=== PATIENT | male | born 1945 | race Caucasian/White ===

== ENCOUNTER 2024-01-05 08:29 | Outpatient (CLI) | payer MEDICARE, BC, OTHER, SELFPAY | END 2024-01-05 08:30 | disposition home or self-care (01) | LOC: AMB 01-11 00:42 | PROVIDERS: PCP Family Medicine; Visit Provider Family Medicine | DX: R06.09 Other forms of dyspnea (principal) | CPT/HCPCS: A0425; A0427 ==

== ENCOUNTER 2024-01-05 08:50 | Inpatient (IN) | payer MEDICARE, BC, OTHER, SELFPAY ==
[2024-01-05] VITALS (10 sets, daily range): BP systolic 123–188; BP diastolic 55–89; PULSE 76–108; RESP 20–36; TEMP 36.4–36.8; O2SAT 88–95; BMI 28.6
--- NOTE | 2024-01-05 09:07 | ED_ITS ---
HPI - SOB/Dyspnea General Time Seen by Provider: 09:08 Date Seen: 01/05/24 Chief Complaint: Shortness of Breath/Dyspnea Stated Complaint: Respiratory Distress Time Seen by Provider: 01/05/24 09:07 Source: patient, EMS and RN notes reviewed Mode of arrival: EMS Limitations: no limitations History of Present Illness HPI Narrative: this 78-year-old male is brought in by EMS from home where he resides independently with complaining of shortness of breath. He states he has been sick with a cough for about 2 weeks. He will produce some sputum in the morning but then it is more dry. He is on an antidepressant that makes him constipated but otherwise no associated GI symptoms with this illness. He has had no fevers or night sweats. He has tried some [id number] cough and cold medicines but his shortness of breath has progressed. He states just even trying to go to the bathroom makes him winded. He has no chest pain with this, has noted no edema. He wonders if he has pneumonia. He smokes cigarettes, less than a pack per day. [facility]. He has a history of atrial fibrillation and is on Eliquis, states he has missed no doses of this. He has no chronic oxygen at home. EMS did give him a DuoNeb in route which reportedly helped. He also has COPD, states he has a couple inhalers at home. MD elicited complaint: shortness of breath and cough Related Data Home oxygen amount: none Allergies Allergy/AdvReac Type Severity Reaction Status Date / Time No Known Drug Allergies Allergy Verified 01/05/24 08:53 Review of Systems Status of ROS: Reports: 6 or more systems reviewed and unremarkable except as noted in History and below PFSH PFS Social History Smoking Status: Current every day smoker What tobacco products do you use: cigarettes Smoking packs per day: 0.75 Smoking cigarettes per day: 15.0 Do you use any of these nicotine containing products: None Second hand tobacco smoke exposure: Yes How often do you have a drink containing alcohol: never How often do you have six or more drinks on one occasion: Never AUDIT-C Alcohol total score: 0 Non-prescribed substance use: denies use service: Yes Exam Const: Vital Signs, click to edit/add: Vital Signs - 24 hr 01/05/24 08:54 01/05/24 09:13 01/05/24 09:13 Temperature 98.3 F Pulse Rate [Apical ] 105 H Respiratory Rate 36 H Blood Pressure [Le ft Upper Arm] 137/72 Pulse Oximetry 88 89 89 Oxygen Delivery Me thod Room Air Nasal Cannula Oxygen Flow Rate 1 Patient is alert, interactive, no apparent distress. Mildly tachypneic but does seem to do fine talking. Do note some paradoxical abdominal movement with respiration. Sclera clear, conjugate gaze, symmetrical facial function. Distant breath sounds, do not hear any end-expiratory wheezing but hear some rhonchi left base. No crackles noted. CV slightly fast, do not hear significant irregularity to it but on the monitor can see that he is in atrial fibrillation. Hear no cardiac murmur. Abdomen is soft, nontender, no organomegaly or masses. He has no lower extremity edema. Did place pulse oximetry on this patient, has consistently good waveform with 87-88%. Will have nursing staff apply 1 L nasal cannula. Documenting provider has reviewed patient's vital signs: yes Course Course ED Course: This is a patient with underlying atrial fibrillation anticoagulated in history of COPD with complaint of shortness of breath, cough without fever and mild hypoxia. This likely represents COPD with underlying possible respiratory illness, consider viral and bacterial pneumonia. It is possible there could be cardiac manifestations such as CHF but he has no physical stigmata such is peripheral edema. Will get full complement of labs, start with a portable chest x-ray. He is likely going to need admission due to the hypoxia, does not have oxygen at home. Will initiate 40 mg oral prednisone now. Reevaluation(s) Time of Reevaluation #1: 10:37 Reevaluation #1: Have reviewed with patient plan for hospitalization, we are initiating antibiotics. Reviewed his chest x-ray is looking clear but white count is elevated. Thus will treat for COPD exacerbation with acute infection. He is 93% on current nasal cannula oxygen. He is in agreement with the plan. Consultations Consultation #1: Have spoken with the hospitalist Dr. Bacon. We will use Rocephin and azithromycin, have added a L of normal saline on. Did add on the urinary Legionella and strep antigen as requested as well as a lab add on for procalcitonin. She accepts care of this patient. Time: 10:33 Vital Signs Vital signs: Initial Vital Signs Temperature 98.3 F 01/05/24 08:54 Temperature Source Temporal Artery Scan 01/05/24 08:54 Pulse Rate 105 H 01/05/24 08:54 Pulse Rhythm Irregular 01/05/24 08:54 Respiratory Rate 36 H 01/05/24 08:54 Blood Pressure 137/72 01/05/24 08:54 Blood Pressure Mean 93 01/05/24 08:54 Blood Pressure Position Supine 01/05/24 08:54 Pulse Oximetry 88 01/05/24 08:54 Oxygen Delivery Method Room Air 01/05/24 08:54 Vital Signs Temperature 98.3 F 01/05/24 08:54 Pulse Rate 105 H 01/05/24 08:54 Respiratory Rate 36 H 01/05/24 08:54 Blood Pressure 137/72 01/05/24 08:54 Pulse Oximetry 88 01/05/24 08:54 Oxygen Delivery Method Room Air 01/05/24 08:54 Temperature 98.3 F 01/05/24 08:54 Pulse Rate 105 H 01/05/24 08:54 Respiratory Rate 36 H 01/05/24 08:54 Blood Pressure 137/72 01/05/24 08:54 Pulse Oximetry 89 01/05/24 09:13 Oxygen Delivery Method Nasal Cannula 01/05/24 09:13 Oxygen Flow Rate 1 01/05/24 09:13 Medications Administered Medications: Discontinued Medications Generic Name Dose Route Start Last Admin Trade Name [place] PRN Reason Stop Dose Admin Prednisone 40 mg 01/05/24 09:13 01/05/24 09:25 Prednisone 10 Mg Tablet PO 01/05/24 09:14 40 mg ONCE ONE Administration MDM - SOB/Dyspnea Lab Data Attestation: I reviewed the patient's lab results. Labs: Lab Results 01/05/24 01/05/24 01/05/24 Range/Units 09:07 09:14 10:31 WBC 17.40 H (4.50-11.00) K/uL RBC 4.26 L (4.30-5.90) m/uL Hgb 12.9 L (13.5-17.5) gm/dL Hct 39.0 (37.0-53.0) % MCV 92 (80-100) fL MCH 30 (26-34) pg MCHC 33 (32-36) gm/dL RDW Coeff of Micah 13.3 (11.5-15.5) % Plt Count 329 (140-440) K/uL Neut % (Auto) 86.0 H (42.0-72.0) % Lymph % (Auto) 7.6 L (20-44) % [place] % (Auto) 5.5 (0.0-11.0) % Eos % (Auto) 0.5 (0.0-7.0) % Baso % (Auto) 0.2 (0.0-3.0) % Neut # (Auto) 15.00 H (1.7-7.0) K/uL Lymph # (Auto) 1.30 (0.90-2.90) K/uL [place] # (Auto) 1.00 H (0.00-0.90) K/UL Eos # (Auto) 0.10 (0.00-0.50) K/uL Baso # (Auto) 0.00 (0.00-0.30) K/uL Abs Immat Gran (auto) 0.00 (0.00-0.30) K/uL Imm/Tot Granulo (auto) 0.2 % VBG pH 7.484 H (7.32-7.43) VBG pCO2 32 L (40-50) mmHG VBG pO2 53.8 H (25-47) mmHG VBG HCO3 24 (21-28) mmol/L Sodium 133 L (135-149) mmol/L Potassium 4.0 (3.6-5.1) mmol/L Chloride 101 (96-114) mmol/L Carbon Dioxide 23 (20-32) mmol/L Anion Gap 9 (7-15) mEq/L BUN 22 (7-30) mg/dL Creatinine 0.7 (0.5-1.5) mg/dL Estimated Creat Clear 66.58 Estimated GFR 93 ml/min Glucose 142 H (60-115) mg/dL Lactate 2.2 H (0.5-1.9) mmol/L Calcium 8.8 (8.4-10.6) mg/dL Total Bilirubin 0.8 (0.1-1.5) mg/dL AST 26 (12-35) U/L ALT 17 (4-50) U/L Alkaline Phosphatase 84 (40-150) U/L Troponin I < 0.01 L (0.01-0.04) ng/mL C-Reactive Protein 2.9 H (0.5-1.0) mg/dL NT-Pro-B Natriuret Pep 1550 pg/mL Total Protein 7.7 (6.0-8.3) g/dL Albumin 4.2 (3.3-5.0) g/dL SARS-CoV-2 (PCR) Negative SARS-CoV-2 (Negative) Influenza Type A (PCR) Negative PCR FLU A (Negative) Influenza Type B (PCR) Negative PCR FLU B (Negative) RSV (PCR) Negative PCR RSV (Negative) Lab Acknowledgement Test Added Imaging Data Chest x-ray: Attestation: I have reviewed the pertinent imaging results. My impression: Did visualize this chest x-ray in compare to last which I believe was 2019. Wonder if there is maybe increased perihilar changes right side, certainly no absolute consolidated pneumonia seen. Will await Radiology over-read. Radiologist's impression: Patient: JACOB WILSON Facility:?[facility] Patient ID:?[id number] Site Patient ID:?[id number]. Site :?[id number] Study:?XRay Chest PORTABLE-01/05/2024 9:42:21 AM Ordering Physician:?Malika Romeo Final Report: INDICATION: SOB, COUGH, COPD, HYPOXIA TECHNIQUE: Chest 1 view COMPARISON: 09/06/2020 FINDINGS: Emphysema. Similar prominence of the cardiomediastinal silhouette. Vascular calcifications. Scarring at the right lung apex. Right shoulder replacement hardware. IMPRESSION: Chronic emphysema without focal infiltrate. Dictated by Waldemar Tubbs MD @ 01/05/2024 9:58:17 AM (Electronic Signature) ECG Data Attestation: I personally reviewed and interpreted this ECG as follows: ( Atrial fibrillation, 99 beats per minute.) ECG interpretation date: 01/05/24 ECG interpretation time: 09:18 Discharge Plan Discharge Clinical Impression: Hypoxia, Acute infective exacerbation of chronic obstructive airway disease Patient Disposition: Admitted As Observation
--- NOTE | 2024-01-05 09:13 | XR_ITS ---
Patient: JACOB WILSON Facility:?[facility] Patient ID:?[id number] Site Patient ID:?[id number]. Site :?[id number] Study:?XRay-Chest PORTABLE-01/05/2024 9:42:21 AM Ordering Physician:?Malika Romeo Final Report: INDICATION: SOB, COUGH, COPD, HYPOXIA TECHNIQUE: Chest 1 view COMPARISON: 09/06/2020 FINDINGS: Emphysema. Similar prominence of the cardiomediastinal silhouette. Vascular calcifications. Scarring at the right lung apex. Right shoulder replacement hardware. IMPRESSION: Chronic emphysema without focal infiltrate. Dictated by Waldemar Tubbs MD @ 01/05/2024 9:58:17 AM Signed by:?Waldemar Tubbs MD @01/05/2024 9:58:17 AM (Electronic Signature)
[2024-01-05 09:22] LABS: HCO3 VBG 24 mmol/L (21-28); Lactate* 2.2 mmol/L (0.5-1.9); PCO2 VBG 32 mmHG (40-50); PO2 VBG 53.8 mmHG (25-47); pH VBG 7.484 (7.32-7.43)
[2024-01-05 09:25] LABS: Basophils Percent Auto 0.2 % (0.0-3.0); Eosinophils Percent Auto 0.5 % (0.0-7.0); Hemoglobin* 12.9 gm/dL (13.5-17.5); Immature Granulocytes Pct Auto 0.2 %; Lymphocytes Percent Auto 7.6 % (20-44); Mean Corpuscular HGB Conc 33 gm/dL (32-36); Mean Corpuscular Hemoglobin 30 pg (26-34); Mean Corpuscular Volume 92 fL (80-100); Monocytes Percent Auto 5.5 % (0.0-11.0); Platelet Count* 329 K/uL (140-440); RDW Coefficient of Variation % 13.3 % (11.5-15.5); Red Blood Count 4.26 m/uL (4.30-5.90)
[2024-01-05] MEDS: predniSONE 10 MG TABLET 40 MG PO (09:25)
[2024-01-05 09:26] LABS: Slide Review Reflex No
[2024-01-05 09:37] LABS: Albumin* 4.2 g/dL (3.3-5.0); Chloride* 101 mmol/L (96-114); Sodium* 133 mmol/L (135-149)
[2024-01-05 09:39] LABS: Creatinine* 0.7 mg/dL (0.5-1.5); Est. Creatinine Clearance* 66.58; Estimated Glomerular Filt Rate 93 ml/min
[2024-01-05 09:40] LABS: Alanine Aminotransferase* 17 U/L (4-50); Alkaline Phosphatase* 84 U/L (40-150); Anion Gap 9 mEq/L (7-15); Aspartate Amino Transferase* 26 U/L (12-35); Bilirubin Total* 0.8 mg/dL (0.1-1.5); Blood Urea Nitrogen* 22 mg/dL (7-30); Carbon Dioxide* 23 mmol/L (20-32); Glucose* 142 mg/dL (60-115); Total Protein* 7.7 g/dL (6.0-8.3)
[2024-01-05 09:41] LABS: Calcium* 8.8 mg/dL (8.4-10.6)
[2024-01-05 09:43] LABS: C Reactive Protein* 2.9 mg/dL (0.5-1.0)
[2024-01-05 09:51] LABS: PCR FLU A Negative PCR FLU A (Negative); PCR FLU B Negative PCR FLU B (Negative); PCR RSV Negative PCR RSV (Negative); SARS PCR* Negative SARS-CoV-2 (Negative)
[2024-01-05 09:58] LABS: NT Pro B Type NatriureticPept* 1550 pg/mL; Troponin I* < 0.01 ng/mL (0.01-0.04)
[2024-01-05] MEDS: AZITHROMYCIN 250 MG TABLET 500 MG PO (10:46)
[2024-01-05] MEDS: 0.9 % SODIUM CHLORIDE 1000 ml 1,000 ML 500 ML IV (10:46)
[2024-01-05 11:01] LABS: Procalcitonin* 0.05 ng/mL (<0.50)
[2024-01-05] MEDS: cefTRIAXone 2 GM in 0.9 % SODIUM CHLORIDE Mini-bag 100 ML IVPB (11:16)
--- NOTE | 2024-01-05 11:41 | P.IMHP_ITS ---
Hospitalist- H&P: HPI History of Present Illness Date Seen: 01/05/24 Chief complaint: Respiratory Distress Narrative: ADMISSION HISTORY AND PHYSICAL - HOSPITALIST Chief Complaint: Worsening shortness of breath HPI: Russell is an 78-year-old with COPD, non oxygen dependent, who presents with 2-3 days of worsening dyspnea. He states that typically he gets out of breath with any significant exertion but at this point he was getting short of breath just taking a few steps. No fever. Cough has not changed or produce different type or amount of sputum. No chest pain. No wheezing. We had him here in 2019 for community-acquired pneumonia. He lives alone here in [place]. He is designated his friend as emergency contact. He continues to smoke at a half a pack per day. I reviewed his meds and access is limited but [facility] COURSE: Oral prednisone, oral azithromycin, ceftriaxone 2 g IV. 1 L fluid bolus for elevated lactate. Single-view chest x-ray. Hospital medicine team asked to admit for further management of his hypoxic respiratory failure. CODE STATUS: Full code EMERGENCY CONTACT PLAN: [place] [phone] - first to contact - friend here in . I've updated the PFSH, medications and allergies in the Expanse tabs. INVESTIGATIONS: LABS/MICRO/ECG/IMAGING CBC reflects an elevated white blood cell count at 17.4, 86% neutrophils Hemoglobin is 12.9 Platelets 329 Blood gas is slightly alkalotic at 7.48, pCO2 32 within normal bicarb 24 Sodium is 133 with other normal electrolytes Glucose 142 Lactate 2.2 Normal LFTs Troponin undetected CRP 2.9 BNP 1500 Procalcitonin was reassuring Single-view chest x-ray in the ED shows emphysema without focal infiltrate ECHO 09/07 Final Impressions: 1. Normal LV size, mildly increased wall thickness, normal global systolic function with an estimated EF of 60 - 65%. 2. Mildly enlarged left atrium. 3. Right ventricular cavity size is mildly enlarged, global systolic RV function is normal. 4. The mitral valve is normal, mild mitral regurgitation. 5. Moderate tricuspid regurgitation. 6. Moderately increased estimated pulmonary pressures by tricuspid regurgitation velocity and right atrial pressure (48 mmHg plus RAP). 7. The inferior vena cava is dilated, respiratory size variation less than 50%. 8. 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 9. The aortic sinus is dilated with a maximal diameter of 4.2 cm. ? Comparison Compared to prior exam images and report of 12/15/2017: - TR has increased. - prior sinuses of valsalva remeasured at 4.0 cm. REVIEW OF SYSTEMS: 12-point ROS completed with patient and negative unless otherwise stated in HPI or below. PHYSICAL EXAM: CONSTITUTIONAL: Conversive, good historian. A/O. Knows setting and context. somewhat anxious. doesn't get out of breath speaking but he is tachypneic. VITAL SIGNS: see record. HEENT: Normocephalic, atraumatic. PERRL, EOMI, conjunctivae pink, no scleral icterus. Ears and nose externally normal. Pharynx normal. NECK: No JVD. No carotid bruit, no thyromegaly, no adenopathy. CHEST: rhonchous; no wheeze. mild tachypnea. HEART: S1 and S2 normal. No harsh murmurs. Edema minimal. MUSCULOSKELETAL: No gross joint deformity or swelling. NEURO: Cranial nerves intact. Grossly intact. No asymmetric findings. SKIN: No rashes, petechiae, concerning changes PSYCHIATRIC: Euthymic. ADMIT TO MEDSURG: FLOOR CARE DVT: Eliquis GI: PO intake. PPI Time spent: Today I spent 75 minutes seeing the patient, discussing the patient with ER staff, reviewing Expanse and EPIC notes/diagnostics, discussing the care plan with our care time that includes social work, PT/OT, pharmacy, RT, penitentiary and documenting my impressions and plan in the medical record. [facility] Medical History (Updated 01/05/24 @ 13:11 by Justina Bacon MD) Major depression ?F32.9 - Major depressive disorder, single episode, unspecified (ICD-10) Renal cancer ?C64.9 - Malignant neoplasm of unspecified kidney, except renal pelvis (ICD- 10) Type 2 diabetes mellitus ?E11.9 - Type 2 diabetes mellitus without complications (ICD-10) Tobacco use disorder ?F17.200 - Nicotine dependence, unspecified, uncomplicated (ICD-10) Hypertension ?I10 - Essential (primary) hypertension (ICD-10) Hyperlipidemia ?E78.5 - Hyperlipidemia, unspecified (ICD-10) GERD (gastroesophageal reflux disease) ?K21.9 - Gastro-esophageal reflux disease without esophagitis (ICD-10) COPD (chronic obstructive pulmonary disease) ?J44.9 - Chronic obstructive pulmonary disease, unspecified (ICD-10) Atrial fibrillation ?I48.91 - Unspecified atrial fibrillation (ICD-10) Anxiety ?F41.9 - Anxiety disorder, unspecified (ICD-10) Chronic 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 Half a pack per day. History of alcohol abuse. SOCIAL HISTORY: Lives alone. . 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 Immigrated from [place] at age 13 What is your current living situation?: I presently have a place to live Problems where you live: no known problems Problems where you live details: 12 steps up to apartment In the past 12 months, utilities in danger of being shut off: no In past 12 months, lack of transportation kept you from medical appts, meetings, work, or getting things needed for daily living: no In the past 12 mos, have been you worried that your food would run out before you had money to buy more?: never true In the past 12 mos, the food you bought just didn't last and you didn't have money to buy more?: never true Smoking Status: Current every day smoker What tobacco products do you use: cigarettes Smoking packs per day: 0.75 Smoking cigarettes per day: 15.0 Do you use any of these nicotine containing products: None Nicotine containing products detail: 1/2 pack a day Second hand tobacco smoke exposure: Yes How often do you have a drink containing alcohol: never How often do you have six or more drinks on one occasion: Never AUDIT-C Alcohol total score: 0 Non-prescribed substance use: denies use Caffeine: No How often does anyone, including family, friends and others, physically hurt you : never How often does anyone, including family, friends and others, insult or talk down to you: never How often does anyone, including family, friends and others, threaten you with harm: never How often does anyone, including family, friends and others, scream or curse at you: never service: Yes Meds Home Medications and Allergies Home Medications Medication Instructions Recorded Confirmed Type Lactobacillus acidophilus 10 10,000 mmu cells PO DAILY 01/05/24 01/05/24 History billion cell capsule (Probiotic) apixaban 5 mg tablet 5 mg PO BID 01/05/24 01/05/24 History losartan 50 mg-hydrochlorothiazide 1 tab PO DAILY 01/05/24 01/05/24 History 12.5 mg tablet (Hyzaar) metoprolol tartrate 25 mg tablet 25 mg PO BID 01/05/24 01/05/24 History mometasone-formoterol HFA 200 2 inh inhalation BID 01/05/24 01/05/24 History mcg-5 mcg/actuation aerosol inhaler multivitamin (Daily Multi-Vitamin 1 tab PO DAILY 01/05/24 01/05/24 History tablet) nortriptyline 25 mg capsule 75 mg PO QHS 01/05/24 01/05/24 History pantoprazole 40 mg tablet,delayed 40 mg PO BID 01/05/24 01/05/24 History release polyethylene glycol 3350 17 17 g PO DAILY 01/05/24 01/05/24 History gram/dose oral powder (ClearLax) simvastatin 40 mg tablet 40 mg PO DAILY 01/05/24 01/05/24 History tiotropium 2.5 mcg-olodaterol 2.5 2 inh inhalation DAILY 01/05/24 01/05/24 History mcg/actuation mist for inhalation (Stiolto Respimat) Allergies Allergy/AdvReac Type Severity Reaction Status Date / Time No Known Drug Allergies Allergy Verified 01/05/24 08:53 Exam Const: Vital Signs, click to edit/add: Vital Signs - 24 hr 01/05/24 08:54 01/05/24 09:13 01/05/24 09:13 Temperature 98.3 F Pulse Rate [Apical ] 105 H Respiratory Rate 36 H Blood Pressure [Le ft Upper Arm] 137/72 Pulse Oximetry 88 89 89 Oxygen Delivery Me thod Room Air Nasal Cannula Oxygen Flow Rate 1 Hospitalist - H&P: Result Labs Labs: Short CBC 01/05/24 Range/Units 09:14 WBC 17.40 H (4.50-11.00) K/uL Hgb 12.9 L (13.5-17.5) gm/dL Hct 39.0 (37.0-53.0) % Plt Count 329 (140-440) K/uL BMP 01/05/24 09:14 Sodium 133 L Potassium 4.0 Chloride 101 Carbon Dioxide 23 BUN 22 Creatinine 0.7 Glucose 142 H Calcium 8.8 Cardiac Enzymes 01/05/24 Range/Units 09:14 Troponin I < 0.01 L (0.01-0.04) ng/mL Liver Function 01/05/24 Range/Units 09:14 Total Bilirubin 0.8 (0.1-1.5) mg/dL AST 26 (12-35) U/L ALT 17 (4-50) U/L Alkaline Phosphatase 84 (40-150) U/L Albumin 4.2 (3.3-5.0) g/dL Assessment and Plan Assessment and plan (1) Acute hypoxemic respiratory failure: Problem comment: Minimal oxygen needed in the ED 1-2 L to keep his sats greater than 90%. His gas showed some hyperventilation but otherwise stable This is likely an acute exacerbation of COPD verses acute infection, however we will sort this out over the next 24 hours. Status: Acute (2) Acute infective exacerbation of chronic obstructive airway disease: Problem comment: Despite a normal x-ray we will cover him for community-acquired pneumonia antibiotics: Rocephin and azithromycin We will continue his home medications with nebulized DuoNebs in addition to oral prednisone burst and taper. Status: Acute (3) Atrial fibrillation: Problem comment: Currently rate controlled. He is chronically anticoagulated with Eliquis. Secondary to a history of pulmonary hypertension I will update his echo. Status: Acute (4) Type 2 diabetes mellitus: Problem comment: I will add an A1c to his labs. Sliding scale insulin with q.i.d. Accu-Cheks Status: Acute (5) Tobacco use disorder: Problem comment: Continues at a half pack per day Status: Acute (6) Hypertension: Problem comment: Continue home meds with the following exception: Given his hyponatremia I am holding his hydrochlorothiazide increased his losartan to 100 mg from 50 mg daily. Status: Acute (7) Chronic anticoagulation: Problem comment: For paroxysmal AFib. Eliquis per Status: Acute
[2024-01-05 13:41] LABS: Hemoglobin A1C* 6.2 % (0-5.6)
[2024-01-05] MEDS: METOPROLOL TARTRATE 25 MG TABLET PO ×2 (14:49→20:30)
[2024-01-05] MEDS: APIXABAN 5 MG TABLET PO ×2 (14:49→20:29)
[2024-01-05] MEDS: LOSARTAN POTASSIUM 50 MG TABLET 100 MG PO (14:49)
[2024-01-05] MEDS: BUDESONIDE 0.5 MG/2ML NEB NEB ×2 (14:50→20:29)
--- NOTE | 2024-01-05 16:43 | RESP.RT ---
pt seen and evaluated. BBS decreased. no wheezing, Rhonchi or Rales. Started AErobika with pt. 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 SPO2 95% on RA. Would give duo nebs Q6.
--- NOTE | 2024-01-05 19:13 | PC.NURSE ---
End of Shift: The patient is pleasant... VSS on RA... O2 is needed when the patient is up and ambulating to BR... he desaturates to the mid 70's I educated the patient about this. Up ad ruma as tolerated reported no dizziness or lightheadedness with ambulation. No reports of pain. Decreased appetite.. although he did eat dinner. Call light within reach. Orders to maintain >88%. Mana HOWARD BSN
[2024-01-05] MEDS: NORTRIPTYLINE HCL 25 MG CAPSULE 75 MG PO (20:30)
[2024-01-05] MEDS: OMEPRAZOLE 20 MG CAPSULE DR 40 MG PO (20:31)
[2024-01-05] MEDS: SIMVASTATIN 40 MG TABLET PO (20:32)
[2024-01-05] MEDS: SODIUM CHLORIDE 0.9 % (FLUSH) 10 ML SYRINGE 5 ML IVF (20:32)
[2024-01-05] MEDS: INSULIN ASPART 100 UNIT/ML SUBCUT (20:43)
[2024-01-06] VITALS (7 sets, daily range): BP systolic 124–154; BP diastolic 57–95; PULSE 73–97; RESP 20–22; TEMP 36.4–36.9; O2SAT 94–100
--- NOTE | 2024-01-06 06:44 | PC.NURSE ---
End of shift note [id number]: Pt noted to be alert & oriented x 4 and able to make needs known. He does need reminders to breathe in through nose and out through mouth as pt tends to breath in and out of his mouth. O2 sat noted to drop to 76% on RA with activity. 2 liters oxygen used when pt up in room. Pt has been afebrile throughout the shift. Pt transfers/ambulates with SBA in room as he does not remember to put his oxygen on before getting up. Pt has been denying pain when asked throughout the shift. IV to R AC patent and SL. BG of 151 at HS last evening. Pt was accepting of SS dose of Novolog when educated regarding diabetes and purpose of medication. Pt requested to sleep with pants on. He has been continent of bladder throughout the shift.
[2024-01-06 06:46] LABS: HCO3 VBG 28 mmol/L (21-28); PCO2 VBG 49 mmHG (40-50); PO2 VBG < 30.1 mmHG (25-47); pH VBG 7.369 (7.32-7.43)
[2024-01-06 06:57] LABS: Basophils Percent Auto 0.2 % (0.0-3.0); Eosinophils Percent Auto 1.1 % (0.0-7.0); Hematocrit 37.3 % (37.0-53.0); Hemoglobin* 12.2 gm/dL (13.5-17.5); Immature Granulocytes Pct Auto 0.3 %; Mean Corpuscular HGB Conc 33 gm/dL (32-36); Mean Corpuscular Hemoglobin 31 pg (26-34); Mean Corpuscular Volume 94 fL (80-100); Monocytes Percent Auto 7.3 % (0.0-11.0); Neutrophils Percent Auto 78.1 % (42.0-72.0); Platelet Count* 317 K/uL (140-440); RDW Coefficient of Variation % 13.6 % (11.5-15.5); Red Blood Count 3.95 m/uL (4.30-5.90); White Blood Count* 15.81 K/uL (4.50-11.00)
[2024-01-06 07:00] LABS: Slide Review Reflex No
[2024-01-06 07:11] LABS: Chloride* 102 mmol/L (96-114); Potassium* 4.1 mmol/L (3.6-5.1); Sodium* 136 mmol/L (135-149)
[2024-01-06 07:14] LABS: Anion Gap 9 mEq/L (7-15); Blood Urea Nitrogen* 33 mg/dL (7-30); Carbon Dioxide* 25 mmol/L (20-32); Creatinine* 0.9 mg/dL (0.5-1.5); Est. Creatinine Clearance* 66.58; Estimated Glomerular Filt Rate 86 ml/min
[2024-01-06 07:15] LABS: Calcium* 8.6 mg/dL (8.4-10.6); Glucose* 116 mg/dL (60-115); Magnesium* 2.3 mg/dL (1.5-2.6)
[2024-01-06 07:35] LABS: C Reactive Protein* 7.6 mg/dL (0.5-1.0)
[2024-01-06] MEDS: APIXABAN 5 MG TABLET PO ×2 (07:56→20:49)
[2024-01-06] MEDS: predniSONE 20 MG TABLET 40 MG PO (07:57)
[2024-01-06] MEDS: SENNOSIDES/DOCUSATE TABLET 1 TAB PO (07:57)
[2024-01-06] MEDS: OMEPRAZOLE 20 MG CAPSULE DR 40 MG PO ×2 (07:57→20:49)
[2024-01-06] MEDS: LACTOBACILLUS ACIDOPHILUS 1 TABLET 1 TAB PO (07:58)
[2024-01-06] MEDS: METOPROLOL TARTRATE 25 MG TABLET PO ×2 (07:58→20:53)
[2024-01-06] MEDS: LOSARTAN POTASSIUM 50 MG TABLET 100 MG PO (07:58)
[2024-01-06] MEDS: MULTIVITAMIN/MINERALS 1 TABLET 1 TAB PO (07:58)
[2024-01-06] MEDS: IPRAT-ALBUT 0.5-2.5 MG/3 ML NEB 1 NEB IH ×2 (07:59→13:49)
--- NOTE | 2024-01-06 08:00 | XR_ITS ---
Patient: JACOB WILSON Facility:?[facility] Patient ID:?[id number] Site Patient ID:?[id number]. Site :?[id number] Study:?XRay-Chest 2V-01/06/2024 7:26:07 AM Ordering Physician:?DR. TAYLOR Final Report: Indication: COPD exacerbation Comparison: Single-view chest January 05, 2024 Technique: PA and lateral views of the chest Findings: There is hyperinflation and chronic interstitial change with diffusely increased interstitial markings likely representing mild pulmonary edema. There is no pneumothorax or pleural effusion. The cardiac silhouette is mildly prominent. The bony thorax is grossly intact. Impression: Diffusely increased interstitial markings likely representing mild pulmonary edema. Dictated by Jadiel Menendez MD @ 01/06/2024 8:09:22 AM Signed by:?Jadiel Menendez MD @01/06/2024 8:09:22 AM (Electronic Signature)
[2024-01-06] MEDS: BUDESONIDE 0.5 MG/2ML NEB NEB ×2 (08:59→20:50)
[2024-01-06] MEDS: AZITHROMYCIN 250 MG TABLET PO (10:33)
[2024-01-06] MEDS: cefTRIAXone 1 GM in 0.9 % SODIUM CHLORIDE Mini-bag 100 ML IVPB (10:33)
[2024-01-06] MEDS: SODIUM CHLORIDE 0.9 % (FLUSH) 10 ML SYRINGE 5 ML IVF ×3 (10:34→20:54)
--- NOTE | 2024-01-06 11:10 | P.IMPN_ITS ---
Progress Note: A&P Assessment and plan (1) Acute hypoxemic respiratory failure: Problem details: Minimal oxygen needed in the ED 1-2 L to keep his sats greater than 90%. His gas showed some hyperventilation but otherwise stable - suspect this is acute COPD exacerbation Status: Acute (2) Acute infective exacerbation of chronic obstructive airway disease: Problem details: Despite a normal x-ray we will cover him for community-acquired pneumonia antibiotics: Rocephin and azithromycin We will continue his home medications with nebulized DuoNebs in addition to oral prednisone burst and taper. - was still hypoxic with ambulation this morning. Continue current regimen and monitor overnight. RT to continue to see patient. Status: Acute (3) Ascending aorta dilatation: Problem details: 09/07/2020 ECHO ascending aorta is dilated with a maximal diameter of 4.2 cm. 01/05/2024 ECHO ascending aorta is dilated with a maximal diameter of 4.1 cm. 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 01/05/2024 ECHO aortic sinus is dilated with a maximal diameter of 4.4 cm. Status: Chronic (5) Atrial fibrillation: Problem details: Diagnosed 10/2017 at [facility] Currently rate controlled. He is chronically anticoagulated with Eliquis. Secondary to a history of pulmonary hypertension I will update his echo. Status: Chronic (6) Type 2 diabetes mellitus: Problem details: - A1c 6.2%. Sliding scale insulin with q.i.d. Accu-Cheks. - Gluc 80's-160's Status: Acute (7) Anxiety: Problem details: Continue home med Status: Chronic (8) Hypertension: Problem details: Continue home meds with the following exception: - 01/04 Given his hyponatremia, held hydrochlorothiazide increased his losartan to 100 mg from 50 mg daily. Status: Chronic (9) Tobacco use disorder: Problem details: Continues at a half pack per day Status: Chronic (10) Chronic anticoagulation: Problem details: For paroxysmal AFib. Eliquis Status: Chronic Subjective Time Seen by Provider: 09:21 Date Seen: 01/06/24 Interval history: Russell says he feels about the same as yesterday. Respiratory therapy and is nurse noted that he was very tight this morning for which he was given a neb. He feels a bit better now. Exam Narrative: Exam Narrative: General: No acute distress. Awake, alert, oriented x3. He was standing at bedside working with PT, mild respiratory distress. No pallor. No jaundice. Oropharynx: Clear. Mucous membranes moist. Cardiovascular: Regular rate and rhythm. No murmurs, gallops, or rubs. Respiratory: Patient tight, scattered expiratory wheezes, no crackles. Abdomen: Bowel sounds present. Soft, obese, nondistended, nontender. Extremities: Trace bilat pedal edema. Const: Vital Signs, click to edit/add: Vital Signs - 24 hr 01/05/24 11:37 01/05/24 11:57 01/05/24 11:57 Temperature 97.8 F Pulse Rate Pulse Rate [Pulse Oximeter] 108 H Respiratory Rate 22 22 22 Blood Pressure [Le ft Arm] 176/70 H Blood Pressure [Ri ght Arm] Pulse Oximetry 95 95 95 Oxygen Delivery Me thod Room Air Room Air Room Air Oxygen Flow Rate 01/05/24 15:00 01/05/24 15:00 01/05/24 15:00 Temperature 97.8 F Pulse Rate 89 Pulse Rate [Pulse Oximeter] 83 83 Respiratory Rate 24 24 Blood Pressure [Le ft Arm] 188/89 H Blood Pressure [Ri ght Arm] Pulse Oximetry 93 Oxygen Delivery Nv thod Room Air Oxygen Flow Rate 01/05/24 16:44 01/05/24 16:45 01/05/24 16:45 Temperature 97.9 F Pulse Rate Pulse Rate [Pulse Oximeter] 85 Respiratory Rate 24 20 Blood Pressure [Le ft Arm] 137/82 Blood Pressure [Ri ght Arm] Pulse Oximetry 95 95 93 Oxygen Delivery Nv thod Room Air Room Air Oxygen Flow Rate 01/05/24 20:06 01/05/24 23:00 01/05/24 23:00 Temperature 97.6 F 97.8 F Pulse Rate Pulse Rate [Pulse Oximeter] 80 82 82 Respiratory Rate 20 20 20 Blood Pressure [Le ft Arm] 123/55 L 153/75 H Blood Pressure [Ri ght Arm] Pulse Oximetry 94 93 Oxygen Delivery Nv thod Room Air Room Air Oxygen Flow Rate 01/05/24 23:29 01/06/24 03:00 01/06/24 07:00 Temperature 97.8 F 98.4 F Pulse Rate 76 Pulse Rate [Pulse Oximeter] 85 77 Respiratory Rate 20 22 Blood Pressure [Le ft Arm] 136/71 Blood Pressure [Ri ght Arm] 154/77 H Pulse Oximetry 96 100 Oxygen Delivery Me thod Room Air Nasal Cannula Oxygen Flow Rate 2 01/06/24 07:00 01/06/24 07:00 Temperature Pulse Rate 77 Pulse Rate [Pulse Oximeter] 77 Respiratory Rate 22 Blood Pressure [Le ft Arm] Blood Pressure [Ri ght Arm] Pulse Oximetry Oxygen Delivery Me thod Oxygen Flow Rate Labs Labs: Laboratory Results - last 24 hr 01/05/24 01/05/24 01/05/24 09:14 10:31 13:08 WBC RBC Hgb Hct MCV MCH MCHC RDW Coeff of Micah Plt Count Neut % (Auto) Lymph % (Auto) [place] % (Auto) Eos % (Auto) Baso % (Auto) Neut # (Auto) Lymph # (Auto) [place] # (Auto) Eos # (Auto) Baso # (Auto) Abs Immat Gran (auto) Imm/Tot Granulo (auto) VBG pH VBG pCO2 VBG pO2 VBG HCO3 Sodium Potassium Chloride Carbon Dioxide Anion Gap BUN Creatinine Estimated Creat Clear Estimated GFR Glucose Hemoglobin A1c 6.2 H Calcium Magnesium C-Reactive Protein Procalcitonin 0.05 Urine L. pneumophilia Ag Cancelled Urine Strep pneumoniae Ag Cancelled Lab Acknowledgement Test Added 01/06/24 06:10 WBC 15.81 H RBC 3.95 L Hgb 12.2 L Hct 37.3 MCV 94 MCH 31 MCHC 33 RDW Coeff of Micah 13.6 Plt Count 317 Neut % (Auto) 78.1 H Lymph % (Auto) 13.0 L [place] % (Auto) 7.3 Eos % (Auto) 1.1 Baso % (Auto) 0.2 Neut # (Auto) 12.30 H Lymph # (Auto) 2.10 [place] # (Auto) 1.20 H Eos # (Auto) 0.20 Baso # (Auto) 0.00 Abs Immat Gran (auto) 0.00 Imm/Tot Granulo (auto) 0.3 VBG pH 7.369 VBG pCO2 49 VBG pO2 < 30.1 VBG HCO3 28 Sodium 136 Potassium 4.1 Chloride 102 Carbon Dioxide 25 Anion Gap 9 BUN 33 H Creatinine 0.9 Estimated Creat Clear 66.58 Estimated GFR 86 Glucose 116 H Hemoglobin A1c Calcium 8.6 Magnesium 2.3 C-Reactive Protein 7.6 H Procalcitonin Urine L. pneumophilia Ag Urine Strep pneumoniae Ag Lab Acknowledgement Study: XRay-Chest 2V-01/06/2024 7:26:07 AM Ordering Physician: DR. TAYLOR Final Report: Indication: COPD exacerbation Comparison: Single-view chest January 05, 2024 Technique: PA and lateral views of the chest Findings: There is hyperinflation and chronic interstitial change with diffusely increased interstitial markings likely representing mild pulmonary edema. There is no pneumothorax or pleural effusion. The cardiac silhouette is mildly prominent. The bony thorax is grossly intact. Impression: Diffusely increased interstitial markings likely representing mild pulmonary edema. Dictated by Jadiel Menendez MD @ 01/06/2024 8:09:22 AM Signed by: Jadiel Menendez MD @01/06/2024 8:09:22 AM (Electronic Signature) Dictated By: Jadiel Menendez M.D. Signed By: 01/06/24 0843 DD/ 0809 TD/TT: 01/06/24 0842
[2024-01-06] MEDS: FUROSEMIDE 10 MG/ML inj 40 MG IVP (12:16)
--- NOTE | 2024-01-06 15:02 | PC.NURSE ---
End of Shift Note: Patient has had a good day. When we first started out on this shift his lungs sounded very tight. Good air movement in but not very good expiration. Did receive a duo neb x2 and he said he is feeling his breathing has been a little better since doing those. He was on oxygen when i arrived and we have been able to get him to room air. Although with activity he does desats into the low to mid 70's . He is a current smoker hoping to not have to go home on oxygen. Has not produced any sputum to also send a sample. Will continue to monitor until next shift arrives.
[2024-01-06] MEDS: SIMVASTATIN 40 MG TABLET PO (20:49)
[2024-01-06] MEDS: NORTRIPTYLINE HCL 25 MG CAPSULE 75 MG PO (20:54)
--- NOTE | 2024-01-06 23:41 | PC.NURSE ---
Patient alert and orientedx4. Able to communicate needs. Vital signs stable. Sinus arrhythmia with occasional PVCS on tele. Denies SOB.
[2024-01-07 04:00] VITALS: BP 134/77; PULSE 84; RESP 20; TEMP 36.9; O2SAT 96
[2024-01-07 06:58] LABS: Chloride* 105 mmol/L (96-114); Potassium* 4.1 mmol/L (3.6-5.1); Sodium* 138 mmol/L (135-149)
[2024-01-07 07:00] VITALS: BP 139/72; PULSE 80; RESP 20; TEMP 36.6; O2SAT 98
[2024-01-07 07:00] LABS: Creatinine* 0.9 mg/dL (0.5-1.5); Est. Creatinine Clearance* 66.58; Estimated Glomerular Filt Rate 86 ml/min
[2024-01-07 07:01] LABS: Anion Gap 8 mEq/L (7-15); Blood Urea Nitrogen* 39 mg/dL (7-30); Carbon Dioxide* 25 mmol/L (20-32)
[2024-01-07 07:02] LABS: Calcium* 8.8 mg/dL (8.4-10.6); Glucose* 110 mg/dL (60-115)
[2024-01-07 07:04] LABS: C Reactive Protein* 4.4 mg/dL (0.5-1.0)
--- NOTE | 2024-01-07 08:00 | PC.NURSE ---
Care provided [id number]: Pt alert and oriented to questions this shift, pt very pleasant and cooperative. Up to bathroom x2 this shift, voiding. While at rest in bed sat 98% on RA. Pt denies shortness of breath. Pt's vitals WDL. Pt has call light within reach.
[2024-01-07] MEDS: IPRAT-ALBUT 0.5-2.5 MG/3 ML NEB 1 NEB IH (08:21)
[2024-01-07] MEDS: predniSONE 20 MG TABLET 40 MG PO (08:21)
[2024-01-07] MEDS: METOPROLOL TARTRATE 25 MG TABLET PO (08:22)
[2024-01-07] MEDS: LOSARTAN POTASSIUM 50 MG TABLET 100 MG PO (08:22)
[2024-01-07] MEDS: LACTOBACILLUS ACIDOPHILUS 1 TABLET 1 TAB PO (08:22)
[2024-01-07] MEDS: APIXABAN 5 MG TABLET PO (08:22)
[2024-01-07] MEDS: MULTIVITAMIN/MINERALS 1 TABLET 1 TAB PO (08:23)
[2024-01-07] MEDS: OMEPRAZOLE 20 MG CAPSULE DR 40 MG PO (08:23)
[2024-01-07] MEDS: SODIUM CHLORIDE 0.9 % (FLUSH) 10 ML SYRINGE 5 ML IVF (08:24)
[2024-01-07] MEDS: BUDESONIDE 0.5 MG/2ML NEB NEB (08:25)
[2024-01-07] MEDS: AZITHROMYCIN 250 MG TABLET PO (11:05)
--- NOTE | 2024-01-07 15:13 | PM.DS1 ---
DS: Providers Provider Date Seen: 01/07/24 Date of admission: 01/05/24 11:37 Primary care physician: Darius Temple MD Admitting Clinician: Justina Bacon MD Consults: 01/05/24 11:37 Consult to Occupational Therapy [CONS] Routine Comment: Reason(s) for OT Consult:: Evaluate and Treat Any Restrictions?:: No Restrictions Consult to Physical Therapy [CONS] Routine Comment: Reason(s) for PT Consult:: Evaluate and Treat Any Restrictions?:: No Restrictions Consult to Financial Health Counselor [CONS] Routine Comment: Reason for Consult:: Social Service Consult 01/05/24 12:12 Consult to Respiratory Therapy [CONS] Routine Comment: Reason(s) for RT Consult:: Consult Attending Physician on discharge: CRYSTAL Jay, DANIELC [facility] Date of Discharge: 01/07/24 DS: Diagnosis Discharge Diagnosis (1) Acute hypoxemic respiratory failure: Status: Acute Problem details: Minimal oxygen needed in the ED 1-2 L. Blood gas showed some hyperventilation but otherwise stable. Suspected COPD exacerbation. Resolved, on room air at time of discharge. (2) Acute infective exacerbation of chronic obstructive airway disease: Status: Acute Problem details: Patient was covered for community-acquired pneumonia antibiotics with Rocephin and azithromycin, transitioned to oral cefdinir and azithromycin to complete a 5 day course. Respiratory therapy was consulted. Continued on his home inhalants, received DuoNebs, and a burst dose of prednisone to complete a 5 day course. (3) Ascending aorta dilatation: Status: Chronic Problem details: 09/07/2020 ECHO ascending aorta is dilated with a maximal diameter of 4.2 cm. 01/05/2024 ECHO ascending aorta is dilated with a maximal diameter of 4.1 cm. 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 01/05/2024 ECHO aortic sinus is dilated with a maximal diameter of 4.4 cm. (5) Atrial fibrillation: Status: Chronic Problem details: Diagnosed 10/2017 at [facility]. Secondary to history pulmonary hypertension. Remained rate controlled. Chronically anticoagulated with Eliquis. (6) Type 2 diabetes mellitus: Status: Acute Problem details: - A1c 6.2%. (7) Anxiety: Status: Chronic Problem details: Continued on home med (8) Hypertension: Status: Chronic Problem details: Continue home meds with the following exception: - 01/04 Given his hyponatremia, held hydrochlorothiazide increased his losartan to 100 mg from 50 mg daily. Home medications resumed on discharge. DS: Summary Hospital Course Hospital Course: [age] year old male past medical history significant for COPD, active smoker, atrial fibrillation on chronic anticoagulation, type 2 diabetes mellitus, hypertension was admitted to the medical floor for acute hypoxemic respiratory failure in setting of COPD exacerbation. Course of care and details as noted above. Patient was initiated on IV antibiotics, transition to oral medications as well as burst dose prednisone. Weaned to room air. Smoking cessation encouraged. Remainder of chronic medical comorbidities were monitored and managed with home medications. Status at Discharge Overall status at discharge: patient is back to baseline Time Spent with Patient Time attestation: Total time spent providing and/or coordinating discharge services: Time spent: Greater than 30 minutes Exam Narrative: Exam Narrative: PHYSICAL EXAM General: Pleasant, conversant, NAD Cardiovascular: RRR Pulmonary: No dyspnea Neurological: Alert, answering questions appropriately Skin: Warm, dry. Const: Vital Signs, click to edit/add: Vital Signs - 24 hr 01/06/24 19:49 01/06/24 23:00 01/07/24 04:00 Temperature 97.8 F 98.4 F Pulse Rate 77 Pulse Rate [Pulse Oximeter] 81 84 Respiratory Rate 20 20 Blood Pressure [Le ft Arm] 134/77 Blood Pressure [Ri ght Arm] 125/57 L Pulse Oximetry 94 96 Oxygen Delivery Me thod Room Air Room Air Oxygen Flow Rate 0 01/07/24 07:00 01/07/24 07:00 Temperature 97.9 F Pulse Rate Pulse Rate [Pulse Oximeter] 80 80 Respiratory Rate 20 20 Blood Pressure [Le ft Arm] 139/72 Blood Pressure [Ri ght Arm] Pulse Oximetry 98 Oxygen Delivery Me thod Room Air Oxygen Flow Rate DS: Data Data Completed and Pending Labs on day of discharge: Labs from last 24 hours 01/07/24 06:18 Sodium 138 Potassium 4.1 Chloride 105 Carbon Dioxide 25 Anion Gap 8 BUN 39 H Creatinine 0.9 Estimated Creat Clear 66.58 Estimated GFR 86 Glucose 110 Calcium 8.8 C-Reactive Protein 4.4 H Discharge Plan Discharge Disposition: Home, Self-Care Date of Admission: 01/05/24 11:37 Attending Provider on Discharge: Penelope Avalos Primary Care Provider: Darius Temple Condition: Improved Anticipated Discharge Date/Time: 01/07/24 11:28 Discharge Medications: New azithromycin 250 mg Tablet 250 mg PO Q24H Qty: 2 0RF Rx Instructions: to be taken 01/07-01/08 prednisone 20 mg Tablet 40 mg PO DAILYWM Qty: 3 0RF Rx Instructions: to be taken 01/07-01/09 cefdinir 300 mg capsule 300 mg PO BID Qty: 6 0RF Continued apixaban 5 mg tablet 5 mg PO BID losartan-hydrochlorothiazide [Hyzaar] 50-12.5 mg tablet 1 tab PO DAILY Probiotic 10 billion cell capsule 10,000 mmu cells PO DAILY metoprolol tartrate 25 mg tablet 25 mg PO BID mometasone-formoterol 200-5 mcg/actuation HFA aerosol inhaler 2 inh inhalation BID multivitamin [Daily Multi-Vitamin] Tablet 1 tab PO DAILY nortriptyline 25 mg capsule 75 mg PO QHS Stiolto Respimat 2.5-2.5 mcg/actuation mist 2 inh inhalation DAILY pantoprazole 40 mg tablet,delayed release (DR/EC) 40 mg PO BID polyethylene glycol 3350 [ClearLax] 17 gram/dose powder 17 g PO DAILY simvastatin 40 mg tablet 40 mg PO DAILY Discharge Orders: Discharge Order (Routine); Ordered 01/07/24 Ordered By: Penelope Avalos Patient Education: Prednisone (By mouth), Azithromycin (By mouth), Cefdinir (By mouth), COPD (Chronic Obstructive Pulmonary Disease) (GEN), Community Acquired Pneumonia (GEN) Additional Instructions: Finish your antibiotics and prednisone. Outpatient follow-up with PCP 5-7 days. Activity Level: No Restrictions Discharge Diet: Diabetic Follow Up Appointments: Darius Temple MD [Primary Care Provider] - 01/13/24 11:45 am ([facility] for follow-up. CAP, COPD) Forms: Helium Info Instructions
== END 2024-01-07 12:38 | disposition home or self-care (01) | DRG 190 ==
LOC: ED 10:34 → MEDSURG 11:10
PROVIDERS: Family Medicine; Admitting Provider Family Medicine; Emergency Provider Family Medicine; PCP Family Medicine; Visit Provider Family Medicine
DX: J44.0 Chronic obstructive pulmonary disease with (acute) lower respiratory infection (principal); J18.9 Pneumonia, unspecified organism; J96.01 Acute respiratory failure with hypoxia; I48.20 Chronic atrial fibrillation, unspecified; E87.1 Hypo-osmolality and hyponatremia; J44.1 Chronic obstructive pulmonary disease with (acute) exacerbation; F17.210 Nicotine dependence, cigarettes, uncomplicated; I48.91 Unspecified atrial fibrillation; Z79.01 Long term (current) use of anticoagulants; E11.9 Type 2 diabetes mellitus without complications; I10 Essential (primary) hypertension; K21.9 Gastro-esophageal reflux disease without esophagitis; F41.9 Anxiety disorder, unspecified; F32.9 Major depressive disorder, single episode, unspecified; I77.819 Aortic ectasia, unspecified site; I27.20 Pulmonary hypertension, unspecified; I48.0 Paroxysmal atrial fibrillation
CPT/HCPCS: 36415; 71045; 71046; 80048; 80053; 82803; 82962; 83036; 83605; 83735; 83880; 84145; 84484; 85025; 86140; 87070; 87449; 87631; 87899; 93005; 93306; 94640; 94664; 94761; 97116; 97162; 97165; 97535; 99284; 99285; A9153; A9270; J0696; J1940; J7030; J7512; J7626

== ENCOUNTER 2024-05-20 09:27 | Emergency (ER) | payer MEDICARE, BC, OTHER, SELFPAY ==
[2024-05-20] VITALS (11 sets, daily range): BP systolic 139–169; BP diastolic 70–83; PULSE 62–85; RESP 20–26; TEMP 36.2; O2SAT 95–99; BMI 29.7
--- NOTE | 2024-05-20 10:38 | ED_ITS ---
HPI - SOB/Dyspnea General Time Seen by Provider: 10:40 Date Seen: 05/20/24 Chief Complaint: Shortness of Breath/Dyspnea Stated Complaint: Pneumonia Time Seen by Provider: 05/20/24 10:38 Source: patient Mode of arrival: ambulatory Limitations: no limitations History of Present Illness HPI Narrative: Russell is a very pleasant 79-year-old [employer] with history of COPD, continued tobacco use, type 2 diabetes, hypertension and chronic anticoagulation secondary to atrial fibrillation who comes to the emergency room for evaluation regarding shortness of breath with activity. Patient notes that he was actually at [facility] a [facility] and was checked out at that time with no problems. In the days that have followed in especially over the last 3 days he has had increasing shortness of breath with exertion. Normally he could be outside walking but now he states that he will get short of breath just by getting up and walking to the door. He has not had a cough, sore throat runny nose or fever. No reported cold symptoms at the onset of this illness. He denies chest pain, fluid retention, history of congestive heart failure. He does have home inhalers which she has been using. He states that he had pneumonia in November of this year and this feels similar. Russell thought that perhaps his shortness of breath was from an enlarged abdomen. He notes that he has had a protuberant and firm abdomen for quite some time. He has had ultrasound in the past. He was recently told by a physician to use Metamucil. He notes that the size of his abdomen decreases slightly with a bowel movement but does not report any constipation. He also notes that his abdomen seems to go down when he eats. He denies any blood in his stool unusual weight loss. He denies any abdominal pain. Related Data Home Medications ?Medication ?Instructions ?Recorded ?Confirmed apixaban 5 mg tablet 5 mg PO BID 01/05/24 05/20/24 losartan 50 mg-hydrochlorothiazide 1 tab PO DAILY 01/05/24 05/20/24 12.5 mg tablet (Hyzaar) metoprolol tartrate 25 mg tablet 25 mg PO BID 01/05/24 05/20/24 mometasone-formoterol HFA 200 2 inh inhalation BID 01/05/24 05/20/24 mcg-5 mcg/actuation aerosol inhaler multivitamin (Daily Multi-Vitamin 1 tab PO DAILY 01/05/24 05/20/24 tablet) pantoprazole 40 mg tablet,delayed 40 mg PO BID PRN 01/05/24 05/20/24 release polyethylene glycol 3350 17 17 g PO DAILY PRN 01/05/24 05/20/24 gram/dose oral powder (ClearLax) simvastatin 40 mg tablet 40 mg PO HS 01/05/24 05/20/24 tiotropium 2.5 mcg-olodaterol 2.5 2 inh inhalation DAILY 01/05/24 05/20/24 mcg/actuation mist for inhalation (Stiolto Respimat) albuterol sulfate 90 mcg/actuation 2 inh inhalation QID PRN 05/20/24 05/20/24 aerosol inhaler (Ventolin HFA) modafinil 100 mg tablet 200 mg PO DAILY 05/20/24 05/20/24 nortriptyline 50 mg capsule 100 mg PO HS 05/20/24 05/20/24 psyllium (Hydrocil oral powder) 1 tsp PO DAILY 05/20/24 05/20/24 sennosides 8.6 mg-docusate sodium 1 tab-cap PO BID 05/20/24 05/20/24 50 mg tablet (Senna Plus) simethicone 80 mg chewable tablet 80 mg PO BID-TID PRN 05/20/24 05/20/24 (Gas Relief (simethicone)) spironolactone 25 mg tablet 25 mg PO DAILY 05/20/24 05/20/24 (Aldactone) Allergies Allergy/AdvReac Type Severity Reaction Status Date / Time No Known Drug Allergies Allergy Verified 05/20/24 13:36 Review of Systems Status of ROS: Reports: 10 or more systems reviewed and unremarkable except as noted in History and below Const: Denies: fever or chills ENMT: Denies: throat pain, neck pain, difficulty swallowing, nasal discharge or nasal congestion Cardio: Reports: shortness of breath with exertion; Denies: chest pain, palpitations, edema, swelling of feet/ankles or lightheadedness Resp: Reports: shortness of breath; Denies: cough or wheezing GI: Denies: abdominal pain, nausea, vomiting, diarrhea, constipation, difficulty swallowing or blood in stool : Denies: painful urination or urinary frequency Musculo: Denies: neck pain Allergy/Immuno: Denies: wheezing PFSH [facility] Medical History 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 - Other congenital malformations of aorta (ICD-10) Ascending aorta dilatation ?I77.810 - Thoracic aortic ectasia (ICD-10) Hyperplastic colon polyp ?K63.5 - Polyp of colon (ICD-10) Major depression ?F32.9 - Major depressive disorder, single episode, unspecified (ICD-10) Renal cancer ?C64.9 - Malignant neoplasm of unspecified kidney, except renal pelvis (ICD- 10) Type 2 diabetes mellitus ?E11.9 - Type 2 diabetes mellitus without complications (ICD-10) Tobacco use disorder ?F17.200 - Nicotine dependence, unspecified, uncomplicated (ICD-10) Hypertension ?I10 - Essential (primary) hypertension (ICD-10) Hyperlipidemia ?E78.5 - Hyperlipidemia, unspecified (ICD-10) GERD (gastroesophageal reflux disease) ?K21.9 - Gastro-esophageal reflux disease without esophagitis (ICD-10) COPD (chronic obstructive pulmonary disease) ?J44.9 - Chronic obstructive pulmonary disease, unspecified (ICD-10) Atrial fibrillation ?I48.91 - Unspecified atrial fibrillation (ICD-10) Anxiety ?F41.9 - Anxiety disorder, unspecified (ICD-10) Chronic anticoagulation ?Z79.01 - vice president for instruction (current) use of anticoagulants (ICD-10) Surgical History History of revision of total shoulder arthroplasty ?Z96.619 - Presence of unspecified artificial shoulder joint (ICD-10) History of right shoulder replacement ?Z96.611 - Presence of right artificial shoulder joint (ICD-10) Social History Narrative: HABITS: Daily smoker for many years. Half a pack per day. History of alcohol abuse. SOCIAL HISTORY: Lives alone. . 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, landscape and green[place] Immigrated from [place] at age 13 What is your current living situation?: I presently have a place to live Problems where you live: no known problems Problems where you live details: 12 steps up to apartment In the past 12 months, utilities in danger of being shut off: no In past 12 months, lack of transportation kept you from medical appts, meetings, work, or getting things needed for daily living: no In the past 12 mos, have been you worried that your food would run out before you had money to buy more?: never true In the past 12 mos, the food you bought just didn't last and you didn't have money to buy more?: never true Smoking Status: Current every day smoker What tobacco products do you use: cigarettes Smoking packs per day: 0.75 Smoking cigarettes per day: 15.0 Do you use any of these nicotine containing products: None Nicotine containing products detail: 1/2 pack a day Second hand tobacco smoke exposure: Yes How often do you have a drink containing alcohol: never How often do you have six or more drinks on one occasion: Never AUDIT-C Alcohol total score: 0 Non-prescribed substance use: denies use Caffeine: No How often does anyone, including family, friends and others, physically hurt you : never How often does anyone, including family, friends and others, insult or talk down to you: never How often does anyone, including family, friends and others, threaten you with harm: never How often does anyone, including family, friends and others, scream or curse at you: never service: Yes Exam Narrative: Exam Narrative: Russell is alert and oriented. He is wearing a mask in room 2. Eyes are clear head is atraumatic normocephalic. Neck is supple without lymphadenopathy. Oral cavity with moist mucous membranes without erythema. Nose without drainage. Heart with a regular rate and rhythm. Lungs are clear but lung sounds are distant in the bases left greater than right. Abdomen is enlarged. Somewhat firm and bowing aunt. No obvious masses. No pain with palpation. Lower extremities without any edema. No calf tenderness. Const: Vital Signs, click to edit/add: Vital Signs - 24 hr 05/20/24 09:33 05/20/24 13:33 Temperature 97.2 F L Pulse Rate [Pulse Oximeter] 68 77 Respiratory Rate 26 H 20 Blood Pressure [Ri ght Upper Arm] 139/70 169/83 H Pulse Oximetry 96 97 Oxygen Delivery Me thod Room Air Room Air Documenting provider has reviewed patient's vital signs: yes Course Course ED Course: Differential diagnosis includes but is not limited to COPD exacerbation, pneumonia, congestive heart failure, anxiety, electrolyte imbalance, acute coronary syndrome. Will place IV and draw labs to include CBC, comprehensive panel, troponin, CRP. Will also do a chest x-ray and two view of the abdomen. Reevaluation(s) Reevaluation #1: I spoke with Russell in regards to reassuring lab values and x-ray. I will be treating him for COPD exacerbation as he has no signs of congestive heart failure-note elevated proBNP which is improved from previous months and no edema, negative troponin and reassuring EKG. X-ray by my read does not show a large infiltrate but will await official radiological read. Russell tells me that he is unable to be home alone because he gets so short of breath. We did have him walk around the ED and he experienced some slight shortness of breath but O2 sats were maintained at 96%. Hospitalist has accepted him. Patient noted to be witness coughing while walking and having a challenging time breathing. Given this will also add a chest and abdominal CT. Will give Rocephin 1 g and Zithromax 500 mg and Solu- Medrol says 60 mg at this time. Reevaluation #2: Patient now would like to go home as he states he does not have the money to pay for an outpatient observation admission. Unfortunately he does not meet asael carrasco for inpatient admission. Vital Signs Vital signs: Initial Vital Signs Temperature 97.2 F L 05/20/24 09:33 Temperature Source Temporal Artery Scan 05/20/24 09:33 Pulse Rate 68 05/20/24 09:33 Pulse Rhythm Regular 05/20/24 09:33 Respiratory Rate 26 H 05/20/24 09:33 Blood Pressure 139/70 05/20/24 09:33 Blood Pressure Mean 93 05/20/24 09:33 Blood Pressure Position Sitting 05/20/24 09:33 Pulse Oximetry 96 05/20/24 09:33 Oxygen Delivery Method Room Air 05/20/24 09:33 Vital Signs Temperature 97.2 F L 05/20/24 09:33 Pulse Rate 68 05/20/24 09:33 Respiratory Rate 26 H 05/20/24 09:33 Blood Pressure 139/70 05/20/24 09:33 Pulse Oximetry 96 05/20/24 09:33 Oxygen Delivery Method Room Air 05/20/24 09:33 Temperature 97.2 F L 05/20/24 09:33 Pulse Rate 77 05/20/24 13:33 Respiratory Rate 20 05/20/24 13:33 Blood Pressure 169/83 H 05/20/24 13:33 Pulse Oximetry 97 05/20/24 13:33 Oxygen Delivery Method Room Air 05/20/24 13:33 Medications Administered Medications: Discontinued Medications Generic Name Dose Route Start Last Admin Trade Name Wilton PRN Reason Stop Dose Admin Azithromycin 500 mg 05/20/24 12:37 05/20/24 13:12 Azithromycin 250 Mg Tablet PO 05/20/24 12:38 500 mg ONCE ONE Administration Ceftriaxone Sodium 1 gm/ 100 mls @ 200 mls/hr 05/20/24 12:37 05/20/24 14:21 Sodium Chloride IVPB 05/20/24 12:38 Infused ONCE ONE Infusion Methylprednisolone Sodium Succinate 60 mg 05/20/24 12:45 05/20/24 13:13 Methylprednisolone Sod Succ 62.5 Mg/Ml (125) IVP 05/20/24 12:46 60 mg ONCE ONE Administration MDM - SOB/Dyspnea MDM Narrative Medical decision making narrative: 1. Shortness of breath-I think this likely represents a COPD exacerbation. CT shows severe emphysema especially in the upper lobes. He has a negative D- dimer, is on anticoagulation, has a proBNP that is overall somewhat elevated but improved from previous and no signs of heart failure at this time. In the ED ivon benítez receive Rocephin 1 g and Solu-Medrol 60 mg. He will need to continue Zithromax 250 mg daily for 4 days starting tomorrow as well as prednisone 40 mg daily for an additional 5 days. He is to return to the emergency room for worsening symptoms, difficulty at home and as needed. Initially he felt that he wanted to stay and we agreed to this but were honest in stating that this would be an observation admission as he did not meet criteria for inpatient status. He elected to go home instead. 2. Distended abdomen -abdominal CT without any large bowel masses, increased stool burden. 3. Left renal mass-I did speak to Russell about this renal mass which is suspicious for cancer. [facility] is a [facility] patient and I have instructed him to contact his primary doctor at the [facility] to get him in to see a urologist as soon as possible. Will make a copy of the CT as well as [facility] for [facility] 3. Disposition-home at this time. I have instructed Russell to return for any worsening symptoms and as needed. Medical Records Attestation: I reviewed the patient's medical records. Lab Data Attestation: I reviewed the patient's lab results. Labs: Lab Results 05/20/24 05/20/24 05/20/24 Range/Units 11:05 11:10 11:22 WBC 10.10 (4.50-11.00) K/uL RBC 4.61 (4.30-5.90) m/uL Hgb 13.8 (13.5-17.5) gm/dL Hct 42.8 (37.0-53.0) % MCV 93 (80-100) fL MCH 30 (26-34) pg MCHC 32 (32-36) gm/dL RDW Coeff of Micah 13.9 (11.5-15.5) % Plt Count 324 (140-440) K/uL Neut % (Auto) 70.1 (42.0-72.0) % Lymph % (Auto) 19.2 L (20-44) % Luce % (Auto) 7.3 (0.0-11.0) % Eos % (Auto) 2.7 (0.0-7.0) % Baso % (Auto) 0.4 (0.0-3.0) % Neut # (Auto) 7.08 H (1.7-7.0) K/uL Lymph # (Auto) 1.90 (0.90-2.90) K/uL Luce # (Auto) 0.70 (0.00-0.90) K/UL Eos # (Auto) 0.27 (0.00-0.50) K/uL Baso # (Auto) 0.04 (0.00-0.30) K/uL Abs Immat Gran (auto) 0.03 (0.00-0.30) K/uL Imm/Tot Granulo (auto) 0.3 % D-Dimer Quant (PE/DVT) 0.31 (0.00-0.50) ug/ml Sodium 135 (135-149) mmol/L Potassium 4.4 (3.6-5.1) mmol/L Chloride 99 (96-114) mmol/L Carbon Dioxide 29 (20-32) mmol/L Anion Gap 7 (7-15) mEq/L BUN 19 (7-30) mg/dL Creatinine 0.8 (0.5-1.5) mg/dL Estimated Creat Clear 65.47 Estimated GFR 89 ml/min Glucose 108 (60-115) mg/dL Calcium 9.0 (8.4-10.6) mg/dL Magnesium 2.1 (1.5-2.6) mg/dL Total Bilirubin 0.6 (0.1-1.5) mg/dL AST 28 (12-35) U/L ALT 17 (4-50) U/L Alkaline Phosphatase 61 (40-150) U/L Troponin I < 0.01 L (0.01-0.04) ng/mL C-Reactive Protein 0.8 (0.5-1.0) mg/dL NT-Pro-B Natriuret Pep 929 pg/mL Total Protein 8.1 (6.0-8.3) g/dL Albumin 4.7 (3.3-5.0) g/dL 25-OH Vitamin D Total 43 (30-80) ng/mL Procalcitonin 0.05 (<0.50) ng/mL SARS-CoV-2 (PCR) Negative SARS-CoV-2 (Negative) Monoscreen Negative (Negative) Lab Acknowledgement Test Added 05/20/24 Range/Units 12:35 WBC (4.50-11.00) K/uL RBC (4.30-5.90) m/uL Hgb (13.5-17.5) gm/dL Hct (37.0-53.0) % MCV (80-100) fL MCH (26-34) pg MCHC (32-36) gm/dL RDW Coeff of Micah (11.5-15.5) % Plt Count (140-440) K/uL Neut % (Auto) (42.0-72.0) % Lymph % (Auto) (20-44) % Luce % (Auto) (0.0-11.0) % Eos % (Auto) (0.0-7.0) % Baso % (Auto) (0.0-3.0) % Neut # (Auto) (1.7-7.0) K/uL Lymph # (Auto) (0.90-2.90) K/uL Luce # (Auto) (0.00-0.90) K/UL Eos # (Auto) (0.00-0.50) K/uL Baso # (Auto) (0.00-0.30) K/uL Abs Immat Gran (auto) (0.00-0.30) K/uL Imm/Tot Granulo (auto) % D-Dimer Quant (PE/DVT) (0.00-0.50) ug/ml Sodium (135-149) mmol/L Potassium (3.6-5.1) mmol/L Chloride (96-114) mmol/L Carbon Dioxide (20-32) mmol/L Anion Gap (7-15) mEq/L BUN (7-30) mg/dL Creatinine (0.5-1.5) mg/dL Estimated Creat Clear Estimated GFR ml/min Glucose (60-115) mg/dL Calcium (8.4-10.6) mg/dL Magnesium (1.5-2.6) mg/dL Total Bilirubin (0.1-1.5) mg/dL AST (12-35) U/L ALT (4-50) U/L Alkaline Phosphatase (40-150) U/L Troponin I (0.01-0.04) ng/mL C-Reactive Protein (0.5-1.0) mg/dL NT-Pro-B Natriuret Pep pg/mL Total Protein (6.0-8.3) g/dL Albumin (3.3-5.0) g/dL 25-OH Vitamin D Total (30-80) ng/mL Procalcitonin (<0.50) ng/mL SARS-CoV-2 (PCR) (Negative) Monoscreen (Negative) Lab Acknowledgement Test Added Imaging Data Chest x-ray: Attestation: I have reviewed the pertinent imaging results. Radiologist's impression: Cardiovasculature and mediastinum: Heart size is normal. Unremarkable mediastinum. Lungs and pleural spaces: The lateral lung bases and costophrenic angles are excluded from the field of view on the chest radiograph but are well visualized on the concurrent abdominal radiographs. The lungs are clear. No pleural effusion. No pneumothorax. Bones and soft tissues: Partially visualized right reverse total shoulder arthroplasty. Abdominal x-ray: Attestation: I have reviewed the pertinent imaging results. Radiologist's impression: Bowel: Single elongated air-fluid level in the epigastric region is favored to be within the gastric body, though is indeterminate. Otherwise, normal bowel gas pattern. Soft tissues: No sign of free air. No sign of soft tissue mass. No suspicious calcifications. Bones: Severe right hip joint degenerative arthrosis. CT Chest/Ab/Pelvis: Attestation: I have reviewed the pertinent imaging results. Radiologist's impression: TECHNIQUE: CT of the chest, abdomen and pelvis with 110 cc of Isovue 370 intravenous contrast. Please note that all CT scans at this facility use dose modulation, iterative reconstruction, and/or weight-based dosing when appropriate to reduce radiation dose to as low as reasonably achievable. FINDINGS: CHEST Visualized Lower Neck: No lower cervical adenopathy. Lungs and Pleura: Severe upper lobe predominant emphysema. Bibasilar multilobar fibrosis. Bilateral lower lobe calcified and noncalcified micro nodules. No pleural effusion. No pneumothorax. Mediastinum: Borderline dilated mid ascending thoracic aorta which measures 4 cm in caliber (2; 60). Dilated pulmonary trunk measuring 3.4 cm. Extensive severe multivessel atherosclerotic coronary artery calcifications. Trachea and esop hagus are normal in appearance. There is no mediastinal lymphadenopathy. ABDOMEN Liver: Normal hepatic attenuation. No suspicious focal hepatic lesion. No intrahepatic biliary ductal dilatation. Patent portal and hepatic veins. Gallbladder: Normal gallbladder size. Normal common duct caliber. No pericholecystic inflammatory changes. Pancreas: Normal pancreatic attenuation. No focal lesion. Normal duct caliber. No peripancreatic inflammatory changes. Spleen: Normal splenic attenuation. No suspicious focal lesion. Patent splenic artery and vein. Adrenal Glands: Symmetrical adrenal glands. No focal lesion of significance. Kidneys: Heterogeneously enhancing posterior left renal interpolar cortical lesion measuring 2 cm (series 2; image 192) representing a renal cell carcinoma until proven otherwise. Bilateral uncomplicated renal cortical cysts. No obstructing stone. Gastrointestinal tract: Normal caliber, attenuation and wall thickness of the gastrointestinal tract. No inflammatory changes. Normal mesentery. Normal appendix. Vascular: Chronic diffuse severe aortoiliac and branch vessel atherosclerotic mural calcification. Atherosclerotic ostial calcification of the celiac artery is noted. There is noncircumferential short segmental atherosclerotic mural calcification of the proximal SMA. Bilateral renal artery ostial atherosclerotic calcifications are present. Mild infrarenal abdominal aortic focal fusiform ectasia. No aneurysm. Abdominal aorta and its major proximal branches including the celiac, superior mesenteric, inferior mesenteric, renal, and bilateral common iliac arteries are patent. Inferior vena cava, portal and superior mesenteric veins are patent. Additional findings: No adenopathy per imaging criteria. No significant ascites, free fluid or pneumoperitoneum. PELVIS No bladder lesion is identified. No significant incidental findings related to the uterus and uterine adnexae. No significant incidental findings related to the prostate and seminal vesicles. No abnormal free fluid. No adenopathy per imaging criteria. SKELETON AND BODY WALL No acute or suspicious incidental findings. Chronic appearing L1 superior endplate compression deformity. Advanced right hip osteoarthrosis. Right shoulder arthroplasty. IMPRESSION: 1. Incidental solid enhancing left renal lesion representing renal cell cancer until proven otherwise. Nonemergent subspecialty referral is recommended for further management. 2. Severe emphysema. 3. Severe multivessel atherosclerotic coronary artery calcifications. 4. Borderline dilated mid ascending thoracic aorta. Otherwise, no evidence of thoracoabdominal aortic aneurysm. 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 ECG Data Attestation: I personally reviewed and interpreted this ECG as follows: ECG interpretation date: 05/20/24 Interpretation: EKG by my read shows AF atrial fibrillation a rate of 66. Poor R-wave progression. No acute ST or T-wave changes. QT and IL intervals within normal limits. Discharge Plan Discharge Clinical Impression: Increasing shortness of breath, Kidney mass Patient Disposition: Home, Self-Care Condition: Improved Additional Instructions: Continue your antibiotic and steroid. We will use Zithromax as your antibiotic. Steroids for anti-inflammatory. Return to the emergency room for worsening symptoms On the CT today you did have evidence of a lesion or mass on your kidney. You will need to follow-up with the [facility] for a urology consultation and special studies. Return to the emergency room as needed. Prescriptions: No Action spironolactone [Aldactone] 25 mg tablet 25 mg PO DAILY simethicone [Gas Relief (simethicone)] 80 mg tablet,chewable 80 mg PO BID-TID PRN modafinil 100 mg tablet 200 mg PO DAILY albuterol sulfate [Ventolin HFA] 90 mcg/actuation HFA aerosol inhaler 2 inh inhalation QID PRN sennosides-docusate sodium [Senna Plus] 8.6-50 mg tablet 1 tab-cap PO BID nortriptyline 50 mg capsule 100 mg PO HS Hydrocil Powder 1 tsp PO DAILY Rx Instructions: mix into at least 4 oz water or juice before administering apixaban 5 mg tablet 5 mg PO BID losartan-hydrochlorothiazide [Hyzaar] 50-12.5 mg tablet 1 tab PO DAILY metoprolol tartrate 25 mg tablet 25 mg PO BID mometasone-formoterol 200-5 mcg/actuation HFA aerosol inhaler 2 inh inhalation BID multivitamin [Daily Multi-Vitamin] Tablet 1 tab PO DAILY Stiolto Respimat 2.5-2.5 mcg/actuation mist 2 inh inhalation DAILY pantoprazole 40 mg tablet,delayed release (DR/EC) 40 mg PO BID PRN polyethylene glycol 3350 [ClearLax] 17 gram/dose powder 17 g PO DAILY PRN simvastatin 40 mg tablet 40 mg PO HS Follow Up/Referrals: Darius Temple MD [Primary Care Provider] - Stand Alone Forms: [facility] Info Instructions
--- NOTE | 2024-05-20 10:54 | CRLHL7_ITS ---
For Patients: As a result of the Century Cures Act, medical imaging exams and procedure reports are released immediately into your electronic medical record. You may view this report before your referring provider. If you have questions, please contact your health care provider. Indication: Distention. Technique: Abdomen 3 view. Comparison: Abdominal radiographs dated 09/06/2020. Findings/Impression: Bowel: Single elongated air-fluid level in the epigastric region is favored to be within the gastric body, though is indeterminate. Otherwise, normal bowel gas pattern. Soft tissues: No sign of free air. No sign of soft tissue mass. No suspicious calcifications. Bones: Severe right hip joint degenerative arthrosis. Dictated by Gregory Zhou MD @ 05/20/2024 12:30:02 PM (Electronically Signed)
--- NOTE | 2024-05-20 10:54 | CRLHL7_ITS ---
For Patients: As a result of the Cures Act, medical imaging exams and procedure reports are released immediately into your electronic medical record. You may view this report before your referring provider. If you have questions, please contact your health care provider. INDICATION: Shortness of breath. TECHNIQUE: Chest 1 views. COMPARISON: None. FINDINGS/IMPRESSION: Cardiovasculature and mediastinum: Heart size is normal. Unremarkable mediastinum. Lungs and pleural spaces: The lateral lung bases and costophrenic angles are excluded from the field of view on the chest radiograph but are well visualized on the concurrent abdominal radiographs. The lungs are clear. No pleural effusion. No pneumothorax. Bones and soft tissues: Partially visualized right reverse total shoulder arthroplasty. Dictated by Gregory Zhou MD @ 05/20/2024 12:35:05 PM (Electronically Signed)
[2024-05-20 11:18] LABS: Basophils Absolute Auto 0.04 K/uL (0.00-0.30); Basophils Percent Auto 0.4 % (0.0-3.0); Eosinophils Absolute Auto 0.27 K/uL (0.00-0.50); Eosinophils Percent Auto 2.7 % (0.0-7.0); Hematocrit 42.8 % (37.0-53.0); Hemoglobin* 13.8 gm/dL (13.5-17.5); Immature Granulocytes Abs Auto 0.03 K/uL (0.00-0.30); Immature Granulocytes Pct Auto 0.3 %; Lymphocytes Percent Auto 19.2 % (20-44); Mean Corpuscular HGB Conc 32 gm/dL (32-36); Mean Corpuscular Hemoglobin 30 pg (26-34); Mean Corpuscular Volume 93 fL (80-100); Monocytes Percent Auto 7.3 % (0.0-11.0); Neutrophils Absolute Auto 7.08 K/uL (1.7-7.0); Neutrophils Percent Auto 70.1 % (42.0-72.0); Platelet Count* 324 K/uL (140-440); RDW Coefficient of Variation % 13.9 % (11.5-15.5); Red Blood Count 4.61 m/uL (4.30-5.90)
[2024-05-20 11:24] LABS: Slide Review Reflex No
[2024-05-20 11:33] LABS: Albumin* 4.7 g/dL (3.3-5.0); Chloride* 99 mmol/L (96-114); Potassium* 4.4 mmol/L (3.6-5.1); Sodium* 135 mmol/L (135-149)
[2024-05-20 11:35] LABS: Creatinine* 0.8 mg/dL (0.5-1.5); Est. Creatinine Clearance* 65.47; Estimated Glomerular Filt Rate 89 ml/min
[2024-05-20 11:36] LABS: Alanine Aminotransferase* 17 U/L (4-50); Alkaline Phosphatase* 61 U/L (40-150); Anion Gap 7 mEq/L (7-15); Aspartate Amino Transferase* 28 U/L (12-35); Bilirubin Total* 0.6 mg/dL (0.1-1.5); Blood Urea Nitrogen* 19 mg/dL (7-30); Carbon Dioxide* 29 mmol/L (20-32); Total Protein* 8.1 g/dL (6.0-8.3)
[2024-05-20 11:37] LABS: D Dimer Quantitative* 0.31 ug/ml (0.00-0.50); Glucose* 108 mg/dL (60-115)
--- OUTSIDE RECORDS SUMMARY | 2024-05-20 11:37 | XMS_ITS | Encounter Summary ---
Author Name [facility] [facility] Address [address] [place] [address] Care Team Providers Care Marketing Analytics Lead Name Role Phone KEVEN CARDONA Primary Care Provider Unavailabl e Insurance Providers: All historical and current Section Date Range: From patient's date of to the date document was created. This section includes the names of all active insurance providers for the patient. Insurance Provider Type of Coverage Plan Name Start of Policy Coverage End of Policy Coverage Group Number Member ID Insurance Provider's Telephone Number Policy Vyas's Name Patient's Relationship to Policy Vyas [place] SUPP[place] MEDIC ARE SUPPL EMENT Oct 19, 2016 [id number] [phone] SEJAL WILSON PATIENT [place] SUPPLEMEN CATH[place] MEDIC ARE SUPPL EMENT Oct 19, 2016 [id number] [phone] SEJAL WILSON PATIENT MEDICARE (WNR) MEDICARE (M) PART B Jun 19, 2009 PART B [id number] [phone] SEJAL WILSON PATIENT MEDICARE (WNR) MEDICARE (M) PART B Jun 19, 2009 PART B [id number] [phone] SEJAL WILSON PATIENT MEDICARE (WNR) MEDICARE (M) PART A February 17, 2008 PART A [id number] [phone] SEJAL WILSON PATIENT MEDICARE (WNR) MEDICARE (M) PART A February 17, 2008 PART A [id number] [phone] SEJAL WILSON PATIENT Selected Encounter This section includes the information on record at [facility] for the Encounter. Date/Time Encounter Type Encounter Description Reason Pro vider Source Dec 23, 2023 08:30 AM Outpatient Encounter PSYCHOGERIATRIC - INDIVIDUAL IHE Encounter Template Text not used by [facility] Plan of Treatment: Future Appointments (+ 6 months) and Future Tests (+/- 45 days) The Plan of Treatment section includes future care activities for the [facility] This section includes future appointments and future orders which are active, pending or scheduled. Future Appointments This section includes appointments that were scheduled to occur 6 months from the date of the Encounter, up to a maximum of 20 appointments. The data comes from all [place] treatment facilities. Appointment Date/Time Appointment Type Appointme nt Facility Name Dec 24, 2023 10:00 AM AMBULATORY - PSYCHIATRY [facility] Dec 24, 2023 11:00 AM AMBULATORY - NONE [facility] Jan 06, 2024 09:07 PM AMBULATORY - NONE [facility] Jan 27, 2024 08:30 AM AMBULATORY - PSYCHIATRY [facility] May 03, 2024 09:30 AM AMBULATORY - PSYCHIATRY [facility] May 11, 2024 09:30 AM AMBULATORY - MEDICINE [facility] Lab Results: +/- 30 days of the encounter This section includes the Chemistry and Hematology Lab Results on record with [facility] for the patient. Radiology Reports and Pathology Reports are provided separately, in subsequent sections. Lab Results This section contains the Chemistry/Hematology Results that were resulted 30 days before or 30 daysafter the date of the Encounter. Date/Time Source Result Type Result - Unit Interpretation Reference Range Comment Dec 24, 2023 10:39 AM [facility] NORTRIPTYLINE Specimen Type: SERUM Comment: This test was developed and its analytical performance characteristics have been determined by [employer] [place], [place]. It has not been cleared or approved by the U.S. Food and Drug Administration. This assay has been validated pursuant to the CLIA regulations and is used for clinical purposes. Test Performed by [facility], [place], [address] [place] [address] Chance Godinez M.D., Ph.D., Director of Laboratories , CLIA [id number] Ordering Provider: ELIZABETH LEE Report Released Date/Time: Dec 24, 2023 10:29 AM Reporting Lab: [facility] [id number] Performing Lab: [facility] [id number] [facility] NORTRIPTYLINE 50 ug/L 50-150 Dec 24, 2023 10:38 AM [facility] CREATININE(INCLUDES EGFR) Specimen Type: PLASMA No comment entered. Ordering Provider: MITZY HERNANDEZ Report Released Date/Time: Sep 09, 2023 10:29 AM Reporting Lab: [facility] [id number] Performing Lab: [facility] [id number] CREATININE 1.0 mg/dL 0.7-1.2 .CREAT EGFR(CKD-EPI) 76 >60 Dec 24, 2023 10:38 AM [facility] ALT/SGPT Specimen Type: PLASMA No comment entered. Ordering Provider: MITZY HERNANDEZ Report Released Date/Time: Sep 09, 2023 10:29 AM Reporting Lab: [facility] [id number] Performing Lab: [facility] [id number] ALT/SGPT 12 U/L <55 Dec 24, 2023 10:38 AM [facility] AST/SGOT Specimen Type: PLASMA No comment entered. Ordering Provider: MITZY HERNANDEZ Report Released Date/Time: Sep 09, 2023 10:29 AM Reporting Lab: [facility] [id number] Performing Lab: [facility] [id number] AST/SGOT 18 U/L <34 Dec 24, 2023 10:38 AM [facility] CBC Specimen Type: BLOOD No comment entered. Ordering Provider: MITZY HERNANDEZ Report Released Date/Time: Sep 09, 2023 10:29 AM Reporting Lab: [facility] [id number] Performing Lab: [facility] [id number] WBC 10.66 10*3/uL 4.0-11.0 RBC 4.32 10*6/uL L 4.6-6.2 HGB 13.2 g/dL L 13.5-17.9 HCT 40.2 L 41-54 MCV 93.1 fL 80-100 MCH 30.6 pg 27-33 MCHC 32.8 g/dL 32.0-37.5 PLT 347 10*3/uL 150-400 MPV 8.9 fL 7.4-10.4 RDW 13.4 11.5-14.5 Social History: Smoking Status (Most current) and Tobacco Use (All prior to encounter date) This section includes the most current, and the historical, smoking and tobacco- related health factors from the [facility] facility where the Encounter took place. Current Smoking Status This section includes the most current smoking, or tobacco-related health factor, from the [facility] facility where the Encounter took place. Date/Time Current Smoking Status Comment Facil ity Feb 09, 2023 09:30 AM VA-TOBACCO USER EVERY DAY [facility] Tobacco Use History This section includes a history of the smoking, or tobacco-related health factors, that were collected on or before the date of the Encounter. The data comes from the [facility] facility where the Encounter took place. Date/Time Smoking Status/Tobacco Use Comment F acility Feb 09, 2023 09:30 AM VA-TOBACCO USE 30 YEARS OR MORE [facility] Feb 09, 2023 09:30 AM VA-TOBACCO USE ADVICE [facility] Feb 09, 2023 09:30 AM VA-TOBACCO USE MELTER LOAD[employer] NO [facility] Feb 09, 2023 09:30 AM VA-TOBACCO USE MED NO [facility] Feb 09, 2023 09:30 AM VA-TOBACCO USER EVERY DAY [facility] Mar 20, 2022 09:00 AM VA-TOBACCO DOESNT USE [place] 30 MIN WAKEUP [facility] Mar 20, 2022 09:00 AM VA-TOBACCO USE 30 YEARS OR MORE [facility] Mar 20, 2022 09:00 AM VA-TOBACCO USE ADVICE [facility] Mar 20, 2022 09:00 AM VA-TOBACCO USE MELTER LO[employer]ER NO [facility] Mar 20, 2022 09:00 AM VA-TOBACCO USE MED NO [facility] Mar 20, 2022 09:00 AM VA-TOBACCO USER EVERY DAY [facility] Mar 25, 2021 09:30 AM VA-TOBACCO USE 30 YEARS OR MORE [facility] Mar 25, 2021 09:30 AM VA-TOBACCO USE ADVICE [facility] Mar 25, 2021 09:30 AM VA-TOBACCO USE MELTER [employer] NO [facility] Mar 25, 2021 09:30 AM VA-TOBACCO USE MED NO [facility] Mar 25, 2021 09:30 AM VA-TOBACCO USE [place] 30 MIN OF WAKE UP [facility] Mar 25, 2021 09:30 AM VA-TOBACCO USER EVERY DAY [facility] Oct 03, 2019 09:42 AM VA-TOBACCO USE 30 YEARS OR MORE [facility] Oct 03, 2019 09:42 AM VA-TOBACCO USE ADVICE [facility] Oct 03, 2019 09:42 AM VA-TOBACCO USE [employer] NO [facility] Oct 03, 2019 09:42 AM VA-TOBACCO USE MED NO [facility] Oct 03, 2019 09:42 AM VA-TOBACCO USE [place] 30 MIN OF WAKE UP [facility] Oct 03, 2019 09:42 AM VA-TOBACCO USER EVERY DAY [facility] Dec 08, 2018 08:17 AM VA-TOBACCO DOESNT USE [place] 30 MIN WAKEUP [facility] Dec 08, 2018 08:17 AM VA-TOBACCO USE 30 YEARS OR MORE [facility] Dec 08, 2018 08:17 AM VA-TOBACCO USE ADVICE [facility] Dec 08, 2018 08:17 AM VA-TOBACCO USE MELTER LO[employer]ER NO [facility] Dec 08, 2018 08:17 AM VA-TOBACCO USE MED NO [facility] Dec 08, 2018 08:17 AM VA-TOBACCO USER SOME DAYS [facility] March 05, 2018 08:43 AM INPT TOBACCO COUNSELING [facility] March 05, 2018 08:43 AM INPT TOBACCO USER [facility] Jan 06, 2018 08:32 AM INPT TOBACCO USE - PT REFUSED [facility] Jan 01, 2018 09:05 AM CURRENT TOBACCO USER [facility] Apr 06, 2017 08:43 AM CURRENT TOBACCO USER [facility] February 18, 2016 10:59 AM CURRENT TOBACCO USER [facility] Aug 23, 2014 08:16 AM CURRENT TOBACCO USER [facility] Jul 27, 2013 10:17 AM CURRENT TOBACCO USER [facility] Jun 08, 2012 09:13 AM CURRENT TOBACCO USER [facility] Apr 18, 2011 10:58 AM CURRENT TOBACCO USER [facility] Apr 15, 2010 08:19 AM CURRENT TOBACCO USER [facility] May 17, 2009 08:43 AM CURRENT TOBACCO USER [facility] Encounter Notes: All associated encounter notes This section contains the clinical notes associated to the Encounter. Date/Time Encounter Note(s) Provider Source Nov 23, 2023 02:18 PM NO SHOW NOTE: LOCAL TITLE: NO SHOW/CANCELLATION CLINIC NOTE STANDARD TITLE: NO SHOW NOTE DATE OF NOTE: NOV 23, 2023@14:18 ENTRY DATE: NOV 23, 2023@14:18:36 AUTHOR: SAMAN STEPHENS COSIGNER: URGENCY: STATUS: COMPLETED [place] not seen for scheduled appointment due to: cancelled Pt cancelled appt for 12/23/23 @ 8:30 due to no van that day. Appointment Rescheduled: Yes Pt r/s for 12/24/23 @ 10:00. Please review patient chart and medications for renewal needs (if appropriate). /shantel/ SAMAN STEPHENS INSPECTOR TYPE Signed: 11/23/2023 14:19 Receipt Acknowledged By: 11/24/2023 07:52 /shantel/ ELIZABETH LEE DO STAFF PSYCHIATRIST 11/23/2023 15:06 /shantel/ JOSEPH NOLAND RN-BSN, CHE RN-BSN, CHE STEPHENSSAMAN [facility]
--- OUTSIDE RECORDS SUMMARY | 2024-05-20 11:37 | XMS_ITS | Encounter Summary ---
Author Name [facility] [place] Organization [facility] [place] Address [address] [place] [id number] Care Team Providers Care Certified Vehicle Fire Investigator Name Role Phone ADELIAKEVEN WASHINGTON Primary Care Provider Unavailabl e Insurance Providers: [...] to Policy [place] SU[place] MEDIC ARE SUPPL EMENT Oct 19, 2016 [id number] [phone] SEJAL WILSON PATIENT [place] SUPPLEMEN [place] MEDIC ARE SUPPL EMENT Oct 19, 2016 [id number] [phone] SEJAL WILSON PATIENT MEDICARE (WNR) MEDICARE (M) PART B Jun 19, 2009 PART B [id number] [phone] SEJAL WILSON PATIENT MEDICARE (WNR) MEDICARE (M) PART B Jun 19, 2009 PART B [id number] [phone] SEJAL WILSON PATIENT MEDICARE (WNR) MEDICARE (M) PART A February 17, 2008 PART A [id number] [phone] SEJAL WILSON PATIENT MEDICARE (WNR) MEDICARE (M) PART A February 17, 2008 PART A [id number] [phone] SEJAL WILSON PATIENT Selected Encounter This section includes the information on record at [place] for the Encounter. Date/Time Encounter Type Encounter Description Reason Pro vider Source Jul 07, 2023 11:36 AM Outpatient Encounter CLINICAL PHARMACY IHE Encounter Template Text not used by [place] Plan of Treatment: Future Appointments (+ 6 months) and Future Tests (+/- 45 days) The Plan of Treatment section includes future care activities for the [facility] [place] [facility] This section includes future appointments and future orders which are active, pending or scheduled. Future Appointments This section includes appointments that were scheduled to occur 6 months from the date of the Encounter, up to a maximum of 20 appointments. The data comes from all [place] treatment facilities. Appointment Date/Time Appointment Type Appointme nt Facility Name Jul 10, 2023 05:20 PM AMBULATORY - REHAB MEDICIN E [facility] Jul 10, 2023 05:30 PM AMBULATORY - REHAB MED[facility] Jul 23, 2023 09:00 AM [facility] Aug 03, 2023 08:30 AM [facility] Aug 11, 2023 09:30 AM [facility] Aug 11, 2023 03:30 PM AMBULATORY [facility] SURGERY [facility] Aug 18, 2023 08:30 AM AMBULATORY - REHAB MEDICIN E [facility] Sep 07, 2023 07:45 AM [facility] Sep 07, 2023 08:00 AM [facility] Sep 07, 2023 10:00 AM [facility] Nov 04, 2023 10:00 AM [facility] Dec 24, 2023 10:00 AM [facility] Dec 24, 2023 11:00 AM [facility] N[facility] Social History: Smoking Status (Most current) and Tobacco Use (All prior to encounter date) This section includes the most current, and the historical, smoking and tobacco- related health factors from the [place] facility where the Encounter took place. Current Smoking Status This section includes the most current smoking, or tobacco-related health factor, from the [place] facility where the Encounter took place. Date/Time Current Smoking Status Comment Jaqueline brink Feb 09, 2023 09:30 AM VA-TOBACCO USER EVERY DAY [facility] Tobacco Use History This section includes a history of the smoking, or tobacco-related health factors, that were collected on or before the date of the Encounter. The data comes from the [place] facility where the Encounter took place. Date/Time Smoking Status/Tobacco Use Comment F acility Feb 09, 2023 09:30 AM VA-TOBACCO USE 30 YEARS OR MORE [facility] Feb 09, 2023 09:30 AM VA-TOBACCO USE ADVICE [facility] Feb 09, 2023 09:30 AM VA-TOBACCO USE INSTRUMENTATION TECHNOLOGIST NO [facility] Feb 09, 2023 09:30 AM VA-TOBACCO USE MED NO [facility] Feb 09, 2023 09:30 AM VA-TOBACCO USER EVERY DAY [facility] Mar 20, 2022 09:00 AM VA-TOBACCO DOESNT USE WI 30 MIN WAKEUP [facility] Mar 20, 2022 09:00 AM VA-TOBACCO USE 30 YEARS OR MORE [facility] Mar 20, 2022 09:00 AM VA-TOBACCO USE ADVICE [facility] Mar 20, 2022 09:00 AM VA-TOBACCO USE INSTRUMENTATION TECHNOLOGIST NO [facility] Mar 20, 2022 09:00 AM VA-TOBACCO USE MED NO [facility] Mar 20, 2022 09:00 AM VA-TOBACCO USER EVERY DAY [facility] Mar 25, 2021 09:30 AM VA-TOBACCO USE 30 YEARS OR MORE [facility] Mar 25, 2021 09:30 AM VA-TOBACCO USE ADVICE [facility] Mar 25, 2021 09:30 AM VA-TOBACCO USE INSTRUMENTATION TECHNOLOGIST NO [facility] Mar 25, 2021 09:30 AM VA-TOBACCO USE MED NO [facility] Mar 25, 2021 09:30 AM VA-TOBACCO USE [place] 30 MIN OF WAKE UP [facility] Mar 25, 2021 09:30 AM VA-TOBACCO USER EVERY DAY [facility] Oct 03, 2019 09:42 AM VA-TOBACCO USE 30 YEARS OR MORE [facility] Oct 03, 2019 09:42 AM VA-TOBACCO USE ADVICE [facility] Oct 03, 2019 09:42 AM VA-TOBACCO USE INSTRUMENTATION TECHNOLOGIST NO [facility] Oct 03, 2019 09:42 AM VA-TOBACCO USE MED NO [facility] Oct 03, 2019 09:42 AM VA-TOBACCO USE [place] 30 MIN OF WAKE UP [facility] Oct 03, 2019 09:42 AM VA-TOBACCO USER EVERY DAY [facility] Dec 08, 2018 08:17 AM VA-TOBACCO DOESNT USE WI 30 MIN WAKEUP [facility] Dec 08, 2018 08:17 AM VA-TOBACCO USE 30 YEARS OR MORE [facility] Dec 08, 2018 08:17 AM VA-TOBACCO USE ADVICE [facility] Dec 08, 2018 08:17 AM VA-TOBACCO USE INSTRUMENTATION TECHNOLOGIST NO [facility] Dec 08, 2018 08:17 AM VA-TOBACCO USE MED NO [facility] Dec 08, 2018 08:17 AM VA-TOBACCO USER SOME DAYS [facility] March 05, 2018 08:43 AM INPT TOBACCO COUNSELING [facility] March 05, 2018 08:43 AM INPT TOBACCO USER [facility] [facility] Jan 06, 2018 08:32 AM INPT TOBACCO USE - PT REFUSED [facility] Jan 01, 2018 09:05 AM CURRENT TOBACCO USER [facility] Apr 06, 2017 08:43 AM CURRENT TOBACCO USER [facility] February 18, 2016 10:59 AM CURRENT TOBACCO USER [facility] Aug 23, 2014 08:16 AM CURRENT TOBACCO USER [facility] Jul 27, 2013 10:17 AM CURRENT TOBACCO USER [facility] Jun 08, 2012 09:13 AM CURRENT TOBACCO USER [facility] Apr 18, 2011 10:58 AM CURRENT TOBACCO USER [facility] Apr 15, 2010 08:19 AM CURRENT TOBACCO USER [facility] May 17, 2009 08:43 AM CURRENT TOBACCO USER [facility] Radiology Reports: +/- 30 days of the encounter Radiology Reports For cases when an order for radiology services may have been completed prior to the date of the Encounter, the report list includes the Radiology Reports that were completed up to 30 days before dateof the Encounter. For cases when an order for radiology services may have been completed after the date of the Encounter, the report list also includes the Radiology Reports that were completed up to30 days after date of the Encounter. The data comes from all [facility]. Date/Time Radiology Report Provider Source Aug 03, 2023 08:27 AM US RENAL (P): JACOB WILSON [id number] -1945 M Exm Date: AUG 03, 2023@08:27 Req Phys: KAVON SWIFT Loc: [facility] (Req'g Loc) Img Loc: Ultrasound Imaging Service: Unknown (Case [id number] COMPLETE) US RETROPERITONEAL RENAL (US Detailed) CPT:23850 Reason for Study: f/u in 6m to evaluate renal mass Clinical History: f/u in 6m to evaluate renal mass [place] IS NOT under investigation for COVID-19 or is COVID-19 negative Defer to radiologist for final protocol. f/u in 6m to evaluate renal mass Responsible provider name and phone number to notify for critical findings if other than user placing the order and pager listed below: User placing orders pager: [phone] LAST CREATININE 0.8 (08/11/22) Report Status: Verified Date Reported: AUG 03, 2023 Date Verified: AUG 03, 2023 [facility] E-Sig:/ES/VALERIE ESTRADA MD Report: Renal ultrasound 08/03/2023 History: Six month follow-up to evaluate renal mass. Comparison: CT 03/03/2023, 12/25/2022, 05/25/2020 ultrasound 08/07/2021, PET scan dated 07/16/2021 Technique: Transverse and longitudinal sonographic images of the kidneys and urinary bladder. Findings: Right kidney: Size: 10.7 cm Echogenicity: Normal Parenchymal thickness and contour: normal. Hydronephrosis: None Calculi (number and maximal diameter): None Cysts: Superior pole hypoechoic cyst measuring 2.3 x 1.8 x 2.2 cm unchanged. Assessment: Benign simple cyst. Lateral and inferior pole hypoechoic cyst with thin internal septations measures 2.3 x 1.6 x 1.6 cm. Assessment: Minimally complicated cyst: almost certainly benign and no further imaging or follow up indicated. Masses: None. Left kidney: Size: 13.2 cm. Echogenicity: Normal Parenchymal thickness and contour: normal. Hydronephrosis: None Calculi (number and maximal diameter): None Cysts: Interpolar region hypoechoic cyst measuring 1.3 x 1.2 x 0.9 cm. Assessment: Benign simple cyst Masses: Inferior pole hypoechoic exophytic mass (labelled #1) measures 2.0 x 2.2 x 2.1 cm. Assessment: Solid Mass Urinary bladder: Partially distended with mild circumferential bladder wall thickening, possibly due to underdistention versus chronic bladder outlet obstruction. Impression: 1. Suspicious 2.2 cm left renal mass is not significantly changed in size compared to prior CT dated 02/24/2023 but has been slowly increasing in size previously measuring 1.9 cm on PET/CT dated 07/16/2021, 1.[address] dated 05/25/2020. Mass remains concerning for renal cell carcinoma until proven otherwise. 2. Additional bilateral benign-appearing renal cysts, similar to prior. I, Valerie Estrada, have reviewed the images and report. Primary Interpreting Staff: VALERIE ESTRADA MD, RADIOLOGIST ([facility]) Primary Interpreting Resident: LIUDMILA MESSINA DO, SOFTWARE QUALITY TEST ENGINEER /[facility] VALERIE ESTRADA -[facility] Jun 16, 2023 09:37 AM MRI-BRAIN (P): JACOB WILSON [id number] -[id number] M Exm Date: JUN 16, 2023@09:37 Req Phys: SOPHIE RAY O Pat Loc: [facility] NEURO MVAR CORY (Req'g Img Loc: MRI IMAGING Service: Unknown (Case [id number] COMPLETE) MRI BRAIN/BRAINSTEM W/O CONTRAST (MRI Detailed) CPT:17338 Reason for Study: gait imbalance Clinical History: If this is a diagnostic procedure, has the patient's age and recent imaging history been considered? Yes Did the ordering provider speak with a industrial methods consultant regarding this imaging exam? No Gait imbalance Responsible provider name and phone number to notify for critical findings if other than user placing the order and pager listed below: User placing orders pager: [phone] LAST CREATININE 0.8 (02/09/23) Allergies: LISINOPRIL (May 17, 2009) Report Status: Verified Date Reported: JUN 16, 2023 Date Verified: JUN 16, 2023 [facility] [place] E-Sig:/ES/JV LUEVANO MD Report: MRI of the brain Comparison:MRI of the brain on August 26, 2019. HISTORY: Gait imbalance Technique: Routine multiplanar multisequence imaging. Findings: Brain parenchyma: No evidence of acute ischemia. Punctate and patchy white matter lesions in the cerebral hemispheres consistent with chronic small vessel ischemia. Remaining brain parenchyma is within normal limits. No evidence of intracranial hemorrhage or intracranial mass. CSF spaces: Within normal limits for patient's stated age. No hydrocephalus. Major intracranial vessels: Within normal limits. Internal auditory canals: Within normal limits. Orbits: Within normal limits. Perinasal sinuses: Small mucous retention cyst in the left maxillary sinus consistent with chronic sinusitis. New since previous. Sella: Within normal limits. Craniocervical junction: Within normal limits. Imaged face: Within normal limits Impression: 1. No evidence of an acute abnormality. 2. Mild to moderate amount of chronic small vessel ischemia is relatively stable. 3. New, small mucous retention cyst in the left maxillary sinus consistent with chronic sinusitis. Primary Interpreting Staff: JV LUEVANO MD, RADIOLOGIST (Channel Turner) /JV JARAMILLO [facility] Encounter Notes: All associated encounter notes This section contains the clinical notes associated to the Encounter. Date/Time Encounter Note(s) Provider Source Jul 07, 2023 11:36 AM EDUCATION NOTE: LOCAL TITLE: EDUCATION MEDICATION INSTRUCTION STANDARD TITLE: EDUCATION NOTE DATE OF NOTE: JUL 07, 2023@11:36 ENTRY DATE: JUL 07, 2023@11:36:16 AUTHOR: SHAMAR HARMAN EXP COSIGNER: URGENCY: STATUS: COMPLETED MEDICATION EDUCATION PARTICIPANTS: Patient TEACHING STRATEGY: Face to Face READINESS TO LEARN: No barriers identified LEARNING NEEDS/OBJECTIVES Participant(s) indicates readiness to learn and has been instructed on indications, side effects, and directions for use. Participant(s) will receive medication information sheets for medications filled. Education included discussion of the following new medication(s): QUETIAPINE PATIENT/FAMILY RESPONSE (OUTCOME): Verbalizes critical information about the topic FOLLOW-UP RECOMMENDED: None needed /shantel/ SHAMAR HARMAN PharmD, BCPS PHARMACIST Signed: 07/07/2023 11:36 SHAMAR HARMAN [facility]
--- OUTSIDE RECORDS SUMMARY | 2024-05-20 11:37 | XMS_ITS | Encounter Summary ---
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 Name Role Phone KEVEN CARDONA Primary Care [...] MEDIC ARE SUPPL EMENT Oct 19, 2016 [id number] [phone] SEJAL WILSON PATIENT [place] SUPPLEMEN CATHY MEDIC ARE SUPPL EMENT Oct 19, 2016 [id number] [phone] SEJAL WILSON PATIENT MEDICARE (WNR) MEDICARE (M) PART B Jun 19, 2009 PART B [id number] [phone] SEJAL WILSON PATIENT MEDICARE (WNR) MEDICARE (M) PART B Jun 19, 2009 PART B [id number] [phone] SEJAL WILSON PATIENT MEDICARE (WNR) MEDICARE (M) PART A February 17, 2008 PART A [id number] [phone] SEJAL WILSON PATIENT MEDICARE (WNR) MEDICARE (M) PART A February 17, 2008 PART A [id number] [phone] STEVESEJAL Sheth PATIENT Selected Encounter This section includes the information on record at [place] for the [place]. Date/Time Encounter Type Encounter Description Reason Provider Source Jan 27, 2024 08:30 AM OFFICE O/P EST MOD 30 MIN PSYCHOGERIATRIC - INDIVIDUAL ICD-10-CM F33.1 Major depressive disorder, recurrent, moderate CALIXTO LEE TIN E E Encounter Template Text not used by [place] Assessments - Encounter Diagnoses This section includes the primary and secondary diagnoses documented for the Encounter. Date/Time Primary/Secondary Diagnosis Diagnosis Name Provider Source Jan 27, 2024 05:22 PM PRIMARY Major depressive disorder, recurrent, moderate GURDEEP LEE IN [facility] Jan 27, 2024 05:22 PM SECONDARY Anxiety disorder, unspecified GURDEEP LEE [facility] Plan of Treatment: Future Appointments (+ 6 months) and Future Tests (+/- 45 days) The Plan of Treatment section includes future care activities for the patient from all [place] [facility] This section includes future appointments and future orders which are active, pending or scheduled. Future Appointments This section includes appointments that were scheduled to occur 6 months from the date of the Encounter, up to a maximum of 20 appointments. The data comes from all [place] [facility]. Appointment Date/Time Appointment Type Appointme nt Facility Name May 03, 2024 09:30 AM AMBULATORY - PSYCHIATRY [facility] May 11, 2024 09:30 AM AMBULATORY - MEDICINE [facility] Jul 05, 2024 10:00 AM AMBULATORY - PSYCHIATRY [facility] Social History: Smoking Status (Most current) and Tobacco Use (All prior to encounter date) This section includes the most current, and the historical, smoking and tobacco- related health factors from the [place] facility where the Encounter took place. Current Smoking Status This section includes the most current smoking, or tobacco-related health factor, from the [place] facility where the Encounter took place. Date/Time Current Smoking Status Comment Jaqueline ity Feb 09, 2023 09:30 AM VA-TOBACCO USER EVERY DAY [facility] Tobacco Use History This section includes a history of the smoking, or tobacco-related health factors, that were collected on or before the date of the Encounter. The data comes from the [place] facility where the Encounter took place. Date/Time Smoking Status/Tobacco Use Comment F acility Feb 09, 2023 09:30 AM VA-TOBACCO USE 30 YEARS OR MORE [facility] Feb 09, 2023 09:30 AM VA-TOBACCO USE ADVICE [facility] Feb 09, 2023 09:30 AM VA-TOBACCO USE ADMINISTRATIVE ASSISTANT COORDINATOR NO [facility] Feb 09, 2023 09:30 AM VA-TOBACCO USE MED NO [facility] Feb 09, 2023 09:30 AM VA-TOBACCO USER EVERY DAY [facility] Mar 20, 2022 09:00 AM VA-TOBACCO DOESNT USE WI 30 MIN WAKEUP [facility] Mar 20, 2022 09:00 AM VA-TOBACCO USE 30 YEARS OR MORE [facility] Mar 20, 2022 09:00 AM VA-TOBACCO USE ADVICE [facility] Mar 20, 2022 09:00 AM VA-TOBACCO USE ADMINISTRATIVE ASSISTANT COORDINATOR NO [facility] Mar 20, 2022 09:00 AM VA-TOBACCO USE MED NO [facility] Mar 20, 2022 09:00 AM VA-TOBACCO USER EVERY DAY [facility] Mar 25, 2021 09:30 AM VA-TOBACCO USE 30 YEARS OR MORE [facility] Mar 25, 2021 09:30 AM VA-TOBACCO USE ADVICE [facility] Mar 25, 2021 09:30 AM VA-TOBACCO USE ADMINISTRATIVE ASSISTANT COORDINATOR NO [facility] Mar 25, 2021 09:30 AM VA-TOBACCO USE MED NO [facility] Mar 25, 2021 09:30 AM VA-TOBACCO USE WI 30 MIN OF WAKE UP [facility] Mar 25, 2021 09:30 AM VA-TOBACCO USER EVERY DAY [facility] Oct 03, 2019 09:42 AM VA-TOBACCO USE 30 YEARS OR MORE [facility] Oct 03, 2019 09:42 AM VA-TOBACCO USE ADVICE [facility] Oct 03, 2019 09:42 AM VA-TOBACCO USE ADMINISTRATIVE ASSISTANT COORDINATOR NO [facility] Oct 03, 2019 09:42 AM VA-TOBACCO USE MED NO [facility] Oct 03, 2019 09:42 AM VA-TOBACCO USE WI 30 MIN OF WAKE UP [facility] Oct 03, 2019 09:42 AM VA-TOBACCO USER EVERY DAY [facility] Dec 08, 2018 08:17 AM VA-TOBACCO DOESNT USE WI 30 MIN WAKEUP [facility] Dec 08, 2018 08:17 AM VA-TOBACCO USE 30 YEARS OR MORE [facility] Dec 08, 2018 08:17 AM VA-TOBACCO USE ADVICE [facility] Dec 08, 2018 08:17 AM VA-TOBACCO USE ADMINISTRATIVE ASSISTANT COORDINATOR NO [facility] Dec 08, 2018 08:17 AM VA-TOBACCO USE MED NO [facility] Dec 08, 2018 08:17 AM VA-TOBACCO USER SOME DAYS [facility] March 05, 2018 08:43 AM INPT TOBACCO COUNSELING [facility] March 05, 2018 08:43 AM INPT TOBACCO USER M PIOTR [facility] Jan 06, 2018 08:32 AM INPT TOBACCO USE - PT REFUSED [facility] Jan 01, 2018 09:05 AM CURRENT TOBACCO USER [facility] Apr 06, 2017 08:43 AM CURRENT TOBACCO USER [facility] February 18, 2016 10:59 AM CURRENT TOBACCO USER [facility] Aug 23, 2014 08:16 AM CURRENT TOBACCO USER [facility] Jul 27, 2013 10:17 AM CURRENT TOBACCO USER [facility] Jun 08, 2012 09:13 AM CURRENT TOBACCO USER [facility] Apr 18, 2011 10:58 AM CURRENT TOBACCO USER [facility] Apr 15, 2010 08:19 AM CURRENT TOBACCO USER [facility] May 17, 2009 08:43 AM CURRENT TOBACCO USER [facility] Encounter Notes: All associated encounter notes This section contains the clinical notes associated to the Encounter. Date/Time Encounter Note(s) Provider Source Jan 27, 2024 02:56 PM PSYCHIATRY E & M N OTE: LOCAL TITLE: PSYCHIATRIC EVALUATION & MANAGEMENT STANDARD TITLE: PSYCHIATRY E & M NOTE DATE OF NOTE: JAN 27, 2024@14:56 ENTRY DATE: JAN 27, 2024@14:56:20 AUTHOR: JANIE SHELLEY EXP COSIGNER: URGENCY: STATUS: COMPLETED PSYCHIATRIC EVALUATION & MANAGEMENT Has ADDENDA PSYCHIATRIC EVALUATION AND MANAGEMENT FOLLOW UP VISIT Duration: 30 minutes Time spent performing psychotherapy services: 16-30 minutes INTERVAL HISTORY: Patient reports continued feelings of nerves and anxiety. He reports lack of ambition and motivation. While he does continue to report constipation, he does not report any changes in mood or newer side effects on the nortriptyline. Team reviewed that his nortriptyline levels were on the lower range of therapeutic (50) and team discussed possibility of increasing the dose. Patient was open to increasing the medication to get to higher levels. He reports he is able to do things around his apartment to keep himself busy. Continues to deny wanting therapy services at this time. PRIOR PSYCHIATRIC HISTORY: Hospitalizations : None Suicide attempt : None ECT: None Prior individual therapy : with Dr. Prince , elected to stop 2022 Prior medication trials: Duloxetine max 60mg Escitalopram Gabapentin 300mg TID Mirtazapine 30mg Sertraline 200mg Venlafaxine 150mg Methylphenidate 5mg - ineffective, too stimulating Quetiapine Buspirone SUBSTANCE USE: Denies use of alcohol, cannabis , stimulant or other recreational drug Current smoker MEDICATION RECONCILIATION: At this visit reviewed the relevant medication list and communicated relevant medication updates with the patient/surrogate. MENTAL STATUS EXAM: General: Cooperative, no acute distress Eye Contact: Good Psychomotor Activity: WNL (Within normal limits) Abnormal Involuntary Movements: None Speech: Regular rate and rhythm, normal volume Mood: Bundle of nerves Affect: Congruent with mood Thought Process: Linear, logical, goal oriented Thought Content: Denies SI (Suicidal Ideation), HI(Homicidal Ideation) Perceptual disturbances: No AH(Auditory Hallucinations),VH(Visual Hallucinations), or delusions Insight: Fair Judgment: Fair Attention/Concentration: Intact for exam purposes Musculoskeletal: Muscle strength/tone intact for exam purposes. Gait is wide based and slow but able to ambulate independently. MOCA performed on 01/27/2024: PERTINENT ASSESSMENTS: Neuropsychological Assessment 01/2023: DSM-5 DIAGNOSIS(ES): Mild Neurocognitive Disorder, Unspecified Persistent Depressive Disorder Anxiety Disorder, Unspecified At this time, reported functional difficulties appear best attributed to low motivation rather than cognitive impairment, and therefore, diagnosis remains consistent with MILD NEUROCOGNITIVE DISORDER. MOCA today is reflective of this with a score of 21/30.Etiology remains somewhat unclear. Mental health factors are likely to contribute to changes in cognitive performance but, in isolation, appear unlikely to fully account for all findings. Although changes in neurocognitive performances are fairly subtle, they are paired with mild declines in motor control/sequencing, progressive parkinsonism features, and late-onset and medication-refractory psychiatric symptoms. Taken together, these changes do raise concern for an underlying neurological contribution to Elon's clinical presentation and mental health symptomatology; however, there is no clearly emerging etiology at this time. An atypical parkinsonism disease process represents a possible leading consideration but would be unlikely to fully account for psychiatric features. An atypical frontal lobar disease with parkinsonism represents an additional but lower etiological consideration. Additional contributing factors likely include: - Cerebrovascular risk factors - History of alcohol use - Hearing impairment ASSESSMENT: Mr. Wilson is an 78 year old Male with a prior psychiatric history of chronic depression, anxiety, Mild neurocognitive disorder per neuropsychological testing 01/19/2023, with history of refractory psychiatric symptoms , Nonresponsive or poorly tolerant to multiple medication trials. 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 Mental health intake completed 07/04/2019 and per chart review and patient's own account, the anxiety and depressive symptoms have not significantly improved with medication trials listed in note above. 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 Neuropsychological testing 07/2023 (Mild Neurocognitive Disorder) reported that Mental health factors are likely to contribute to changes in cognitive performance but, in isolation, appear unlikely to fully account for all findings. Leading etiological considerations include atypical Parkinsonism or An atypical frontal lobar disease with parkinsonism (lower likelihood). Patient continues to endorse depressed mood, anhedonia, amotivation, anergia, reduced appetite, rigidity/irritability with changes to routine, increased anxiety and worry. He denies symptoms including insomnia/sleep disturbance, excessive feelings of guilt, suicidal ideation, psychosis or manic symptoms. Patient's nortriptyline levels on 75mg is only 50 which is the lower end of therapeutic. Patient has continued to voice he has not noticed a significant change to his mood/anxiety symptoms. Will plan to increase to 100mg.We will continue for a full trial and adjust nortriptyline dose based on blood levels. Despite patient subjective lack of improvement in psychiatric symptoms, He does continue to engage in positive behaviors such as exercise regularly, take adequate care of his home, socializes daily. Underlying neurocognitive disorder may contribute to symptoms, particularly difficulty with motivation , lack of completing desired tasks may be related to executive dysfunction. Patient continues to report independence in IADLs/ADLs. DIAGNOSES: Anxiety Disorder, unspecified Depressive Disorder, unspecified Mild Neurocognitive Disorder of uncertain etiology PLAN: -Increase nortriptyline from 75mg daily to 100mg daily. Patient has history of A. fib and on anticoagulation. I discussed with his primary care physician who did not believe patient needed an EKG to start nortriptyline unless symptomatic palpitations which pt denied. -Encouraged continued behavioral activation strategies. Patient completed course of therapy in the past is not interested in additional therapy -Will call to notify patient of the MoCA results -RTC: 1 month SUICIDE RISK ASSESSMENT: RISK FACTORS: age, gender, social isolation, lack of purpose, depression, anxiety, cognitive impairment PROTECTIVE FACTORS: Denies current suicidal ideation, intent or plan. Denies current hopelessness, no prior suicide attempt, denies current substance use, motivated for treatment, no hx of psychiatric hospitalizations. PERCEIVED ACUTE SUICIDE RISK: Low acute - No current intent or recent suicide preparatory behaviors. Protective factors and coping strategies are present. PERCEIVED CHRONIC SUICIDE RISK: Low Chronic - Can identify strengths, activate and utilize resources, does not have chronic suicidal ideation or history of self-directed violence. MH TREATMENT PLAN / EDUCATION / SAFETY Treatment goals are 1) to minimize and manage medication side effects, 2) decrease problematic symptoms and optimize wellness. Patient's overall Mental Health Treatment reviewed. Patient continues to benefit from psychiatric medications as documented. The patient has been told the purpose and side effects of the prescribed psychiatric medications. Supportive therapy to optimize wellness, including medications, will be done as indicated during visits by psychiatrist, and RN. Patient agrees to contact this clinic with any concerns prior to next appointment. Patient is aware of additional MH services that are available, including emergency room and [facility] options. This plan will be reviewed yearly with patient, or sooner if needs change. This plan was discussed with the patient who acknowledges agreement and understanding. Patient was seen and discussed with attending Dr. Lee who agrees with the assessment and plan. Janie Shelley DO PGY-2 Director Of Financial Aid /es/ JANIE SHELLEY Director Of Financial Aid Signed: 01/27/2024 15:38 Receipt Acknowledged By: 01/27/2024 17:22 /shantel/ ELIZABETH LEE DO STAFF PSYCHIATRIST 01/27/2024 ADDENDUM STATUS: COMPLETED I agree with the findings , assessment and plan as documented by Dr. Shelley and provided direct supervision at the time of the encouter. Addendum: Prior MoCA 07/04/2019 :MoCA score was 23+ 11/17 /shantel/ ELIZABETH LEE DO STAFF PSYCHIATRIST Signed: 01/27/2024 17:23 JANIE SHELLEY [facility]
--- OUTSIDE RECORDS SUMMARY | 2024-05-20 11:37 | XMS_ITS | Continuity of Care Document ---
Author Name [facility] Organization [facility] Care Team Providers Care Specialist Physician Name Role Phone [facility] Unavailable Unavailable Problems Combined list of problems from Department of Defense and Veterans Affairs facilities. It does not include entries that were removed or entered in error. Problem Status Onset Date Problem Type Date of Resolution Comments Source Long-term current use of anticoagulant Active 017 Condition Jan 21, 2018 Entered By: NAHUN THOMAS Comment: Indication: nonvalvular atrial fibrillationJan 21, 2018 Entered By: NAHUN THOMAS Comment: Duration: indefinite [facility] Anxiety Active Condition [facility] Atrial fibrillation Active Condition [facility] COPD - Chronic obstructive pulmonary disease Active Condition [facility] Gastroesophageal reflux disease without esophagitis (SNOMED CT 706341720) Active Condition [facility] Hyperlipidemia (SNOMED CT 16663626) Active Condition [facility] Hypertension (SNOMED CT 11086269) Active Condition [facility] 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 Masses suspicious for small. Being monitored closely [facility] SCREEN Active Condition May 30 11 Entered By: MART SOLANO Comment: AAA US 05/30/11 no AAA [facility] Social and personal history finding Active Condition Aug 23, 2014 Entered By: JV DEUTSCH Comment: Born in [facility].Aug 23, 2014 Entered By: JV DEUTSCH Comment: Immigrated to [place], [place] in 1950s.Aug 23, 2014 Entered By: JV DEUTSCH Comment: Lives alone. 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 No children.Aug 23, 2014 Entered By: JV DEUTSCH Comment: [employer] 59-64.Aug 23, 2014 Entered By: JV DEUTSCH Comment: Goes by [employer] [facility] Solitary nodule of lung Active Condition Feb 12, 2023 Entered By: KEVEN CARDONA Comment: Monitored by pulm. Solid component slightly bigger. Suspicious for slow-growing adenocarcinoma [facility] Tobacco Use Disorder * (ICD-9-CM 305.1) Active Condition [facility] Type 2 diabetes mellitus well controlled (SNOMED CT 001892554) Active Condition [facility] Ascites Inactive Condition 02/18/2016 Aug 23, 014 Entered By: JV DEUTSCH Comment: By clinical exam; US ordered 07/23/2014 [facility] Impaired fasting glycaemia Inactive Condition 01/23/2021 [facility] Diagnosis: ICD-10-CM K59.00 Constipation, unspecified Active Diagnosis [facility] Diagnosis: ICD-10-CM Z23 Encounter for immunization Active Diagnosis [facility] Diagnosis: ICD-10-CM F33.1 Major depressive disorder, recurrent, moderate Active Diagnosis [facility] Diagnosis: ICD-10-CM 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 Active Diagnosis [facility] Diagnosis: ICD-10-CM F34.1 Dysthymic disorder Active Diagnosis [facility] Diagnosis: ICD-10-CM F41.9 Anxiety disorder, unspecified Active Diagnosis [facility] Diagnosis: ICD-10-CM 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 Diagnosis: ICD-10-CM Z00.01 Encounter for general adult medical exam w abnormal findings Active Diagnosis [facility] Diagnosis: ICD-10-CM D41.02 Neoplasm of uncertain behavior of left kidney Active Diagnosis [facility] Medications Combined list of outpatient medications from Department of Defense and Veterans Affairs facilities.Medications provided include 1) outpatient medications from the last 15 months, and 2) patient-reported medications. Medication Details Route Status Patient Instructions Prescription Expires Prescription Number Last Dispense Date Ordering Provider Order Date Order Qty Source ALBUTEROL 90MCG/ACTUA T (CFC-F) INHL,ORAL,8 .5GM DOSE COUNTER ALBUTERO L 90MCG/AC TUAT (CFC-F) INHL,ORA L,8.5GM DOSE COUNTER Active INHALE 2 PUFFS BY INHALATI ON FOUR TIMES A DAY NEEDED FOR SHORTNES S OF BREATH FOR SHORTNES S OF BREATH May 11, 2024 2 May 12, 2025 [id number] May 11, 2024 LILY [facility] RESPIR ATORY (INHAL ATION) ACTIVE 05/12/2025 [id number] LILY PEREZ 2023 2 [facility] APIXABAN 5MG TAB APIXABAN 5MG TAB Active TAKE ONE TABLET BY MOUTH EVERY 12 HOURS TO PREVENT STROKES TO PREVENT STROKES March 17, 2024 180 March 18, 2025 [id number] March 17, [address] [facility] ORAL ACTIVE 03/18/2025 [id number] JORGE HERNANDEZ 2023 180 [facility] APIXABAN 5MG TAB APIXABAN 5MG TAB Disconti nued TAKE ONE TABLET BY MOUTH EVERY 12 HOURS TO PREVENT BLOOD CLOTS Apr 01, 2023 180 Apr 01, 2024 [id number] F Jan 12, [address] [facility] ORAL DISCONT INUED (EDIT) 04/01/2024 [id number] 4 Cecile BAJWA S 2022 180 [facility] DOCUSATE NA 50MG/SENNOS IDES 8.6MG TAB DOCUSATE NA 50MG/SEN NOSIDES 8.6MG TAB Active TAKE 1 TABLET BY MOUTH TWICE A DAY FOR CONSTIPA TION PREVENTI ON STOP IF DIARRHEA FOR CONSTIPA TION PREVENTI ON Apr 06, 2024 100 Apr 07, 2025 [id number] Apr 07, 2024 CHE JAUREGUIO A [facility] ORAL ACTIVE 04/07/2025 [id number] 4 SANDY JAUREGUI CO Lyn[place] 2023 [facility] DOCUSATE NA 50MG/SENNOS IDES 8.6MG TAB DOCUSATE NA 50MG/SEN NOSIDES 8.6MG TAB TAKE 1 TABLET BY MOUTH TWICE A DAY FOR CONSTIPA TION PREVENTI ON STOP IF DIARRHEA FOR CONSTIPA TION PREVENTI ON Feb 09, 2023 100 Feb 10, 2024 [id number] Jun 24, 2023 KEVEN CARDONA [facility] ORAL 02/10/2024 [id number] KEVEN CARDONA 2022 100 [facility] HYDROCHLORO THIAZIDE 12.5MG/LOSA RTAN POTASSIUM 50MG TAB HYDROCHL OROTHIAZ MCKENZIE 12.5MG/L OSARTAN POTASSIU M 50MG TAB Active TAKE 1 TABLET BY MOUTH EVERY DAY FOR BLOOD PRESSURE FOR BLOOD PRESSURE May 03, 2024 90 May 04, 2025 [id number] May 05, 2024 KEVEN CARDONA [facility] ORAL ACTIVE 05/04/2025 [id number] KEVEN CARDONA 2023 90 [facility] HYDROCHLORO THIAZIDE 12.5MG/LOSA RTAN POTASSIUM 50MG TAB HYDROCHL OROTHIAZ MCKENZIE 12.5MG/L OSARTAN POTASSIU M 50MG TAB TAKE 1 TABLET BY MOUTH EVERY DAY (REPLACE S LOSARTAN 50MG AND HYDROCHL OROTHIAZ MCKENZIE 25MG) Feb 09, 2023 90 Feb 10, 2024 [id number] B Jan 12, 2024 KEVEN ACRDONA [facility] ORAL 02/10/2024 [id number] KEVEN CARDONA 2022 90 [facility] LACTOBACILL US ACIDOPHILUS TAB LACTOBAC ILLUS ACIDOPHI YEISON TAB Disconti nued TAKE 1 TABLET BY MOUTH EVERY DAY (PROBIOT ICS) Apr 06, 2024 100 Apr 07, 2025 [id number] Apr 07, 2024 CHE JAUREGUI RCO A [facility] ORAL DISCONT INUED BY PROVIDE R 04/07/2025 [id number] SANDY JAUREGUI CO A 2023 100 [facility] LACTOBACILL US ACIDOPHILUS TAB LACTOBAC ILLUS ACIDOPHI YIESON TAB TAKE 1 TABLET BY MOUTH EVERY DAY (PROBIOT ICS) Mar 25, 2023 100 Mar 25, 2024 [id number] A Jan 12, 2024 KEVEN CARDONAO [facility] ORAL 03/25/2024 [id number] KEVEN CARDONA 2022 100 [facility] METHYLPHENI DATE HCL 5MG TAB METHYLPH ENIDATE HCL 5MG TAB Disconti nued TAKE ONE TABLET BY MOUTH EVERY MORNING FOR 1 WEEK, THEN TAKE ONE TABLET TWICE A DAY FOR MOTIVATI ON TAKE SECOND DOSE IN THE EARLY OO N. WINDOW PICKUP 03/25/23 FOR MOTIVATI ON Mar 25, 2023 49 Apr 24, 2023 [id number] Mar 25, [address] [facility] ORAL DISCONT INUED 04/24/2023 [id number] LORNE AGUIRRE 2022 49 [facility] METOPROLOL TARTRATE 25MG TAB METOPROL OL TARTRATE 25MG TAB Active TAKE ONE TABLET BY MOUTH TWICE A DAY FOR HEART RHYTHM Jan 13, 2024 180 Jan 13, 2025 [id number] A Apr 09, [address] [facility] ORAL ACTIVE 01/13/2025 [id number] KEVEN CARDONA 2023 180 [facility] METOPROLOL TARTRATE 25MG TAB METOPROL OL TARTRATE 25MG TAB Disconti nued TAKE ONE TABLET BY MOUTH TWICE A DAY FOR HEART RHYTHM Feb 04, 2023 180 Jan 31, 2024 [id number] Oct 22, [address] [facility] ORAL DISCONT INUED 01/31/2024 [id number] KEVEN CARDONA 2022 180 [facility] MODAFINIL 100MG TAB MODAFINI L 100MG TAB Active TAKE ONE TABLET BY MOUTH EVERY MORNING FOR 7 DAYS, THEN TAKE TWO TABLETS EVERY MORNING AMOTIVAT ION May 03, 2024 53 Nov 03, 2024 [id number] May 03, [address] [facility] ORAL ACTIVE 11/03/2024 [id number] Ralph CARVAJAL TALON R 2023 53 [facility] MOMETASONE FUROATE 200MCG/ACTU AT INHL,ORAL,1 20D,13GM MOMETASO NE FUROATE 200MCG/A CTUAT INHL,ORA L,120D,1 3GM Active INHALE 2 PUFFS BY INHALATI ON TWICE A DAY RINSE MOUTH AFTER USING FOR COPD (REPLACE S SYMBICOR T) May 11, 2024 3 May 12, 2025 [id number] B May 11, [address] [facility] RESPIR ATORY (INHAL ATION) ACTIVE 05/12/2025 [id number] 4 LILY PEREZ 2023 3 [facility] MULTIVITAMI NS W/MINERALS CAP/TAB MULTIVIT AMINS W/MINERA LS CAP/TAB Non-VA TAKE ONE TABLET BY MOUTH Apr 15, 2010 Non-VA Document ed by: BERHANE VALLECILLO Document ed at: [facility] ORAL ACTIVE BERHANE BUENROSTRO 2009 [facility] NORTRIPTYLI NE HCL 10MG CAP NORTRIPT YLINE HCL 10MG CAP Disconti nued TAKE ONE CAPSULE BY MOUTH AT BEDTIME FOR 3 DAYS, THEN TAKE TWO CAPSULES AT BEDTIME FOR 3 DAYS, THEN TAKE THREE CAPSULES AT BEDTIME FOR 3 DAYS, THEN TAKE FOUR CAPSULES AT BEDTIME FOR 3 DAYS, THEN TAKE FIVE CAPSULES AT BEDTIME FOR DEPRESSI ON DIRECTED FOR DEPRESSI ON Aug 11, 2023 450 Nov 09, 2023 [id number] Aug 13, [address] [facility] ORAL DISCONT INUED 11/09/2023 [id number] ELIZABETH LEE 2022 450 [facility] NORTRIPTYLI NE HCL 25MG CAP NORTRIPT YLINE HCL 25MG CAP Disconti nued TAKE THREE CAPSULES BY MOUTH AT BEDTIME FOR DEPRESSI ON FOR DEPRESSI ON Nov 04, 2023 270 Feb 02, 2024 [id number] Nov 09, 2023 ELIZABETH LEESOMMERO [facility] ORAL DISCONT INUED (EDIT) 02/02/2024 [id number] ELIZABETH LEE 2023 270 [place] [facility] NORTRIPTYLI NE HCL 50MG CAP NORTRIPT YLINE HCL 50MG CAP Active TAKE TWO CAPSULES BY MOUTH AT BEDTIME FOR DEPRESSI ON FOR DEPRESSI ON Jan 27, 2024 180 Jan 27, 2025 [id number] Jan 28, 2024 ELIZABETH LEE KAYDENO [facility] ORAL ACTIVE 01/27/2025 [id number] ELIZABETH LEE 2023 180 [facility] OLODATEROL 2.5MCG/TIOT ROPIUM 2.5MCG/ACTU AT INHL,ORAL,6 0D,4GM OLODATER OL 2.5MCG/T IOTROPIU M 2.5MCG/A CTUAT INHL,ORA L,60D,4G M Active INHALE 2 PUFFS BY INHALATI ON EVERY DAY TO PREVENT TROUBLE BREATHIN G FOR COPD (REPLACE S SPIRIVA/ TIOTROPI UM) May 11, 2024 3 May 12, 2025 [id number] B May 11, 2024 [facility] RESPIR ATORY (INHAL ATION) ACTIVE 05/12/2025 [id number] LILY PEREZ 2023 3 [facility] OLODATEROL 2.5MCG/TIOT ROPIUM 2.5MCG/ACTU AT INHL,ORAL,6 0D,4GM OLODATER OL 2.5MCG/T IOTROPIU M 2.5MCG/A CTUAT INHL,ORA L,60D,4G M Disconti nued INHALE 2 PUFFS BY INHALATI ON EVERY DAY TO PREVENT TROUBLE BREATHIN G FOR COPD (REPLACE S SPIRIVA/ TIOTROPI UM) Feb 09, 2023 3 Feb 10, 2024 [id number] A Jan 12, 2024 KEVEN CARDONA [facility] RESPIR ATORY (INHAL ATION) DISCONT INUED 02/10/2024 [id number] KEVEN CARDONA 2022 3 [place] [facility] PANTOPRAZOL E NA 40MG TAB,EC PANTOPRA ZOLE NA 40MG TAB,EC Active TAKE ONE TABLET BY MOUTH TWICE A DAY NEEDED FOR ACID REFLUX Apr 06, 2024 180 Apr 07, 2025 [id number] Apr 07, 2024 CHE JAUREGUI [facility]CO A [place] [facility] ORAL ACTIVE 04/07/2025 [id number] SANDY JAUREGUI CO A 2023 180 [place] [facility] PANTOPRAZOL E NA 40MG TAB,EC PANTOPRA ZOLE NA 40MG TAB,EC TAKE ONE TABLET BY MOUTH TWICE A DAY NEEDED FOR ACID REFLUX Jan 30, 2023 180 Jan 31, 2024 [id number] C Oct 14, 2023 [facility]ARD[facility] 01/31/2024 [id number] KEVEN CARDONA 2022 180 [facility] POLYETHYLEN E GLYCOL 3350 POWDER,ORAL POLYETHY ELDA GLYCOL 3350 POWDER,O RAL Non-VA TAKE BY MOUTH May 25, 2020 Non-VA Document ed by: KEVEN CARDONA Document ed at: [place] [facility] ORAL ACTIVE ADELIAFELIX KEVENHONORIO BURNS 2019 [place] [facility] POLYETHYLEN E GLYCOL 3350 PWDR,ORAL POLYETHY ELDA GLYCOL 3350 PWDR,ORA L Active TAKE 17 GRAMS BY MOUTH EVERY DAY NEEDED FOR SEVERE CONSTIPA TION - DISSOLVE 1 CAPFUL (17 GRAMS) IN 8 OUNCES OF WATER OR JUICE TAKE IF NO GOOD BOWEL MOVEMENT IN 2 DAYS FOR CONSTIPA TION May 11, 2024 510 May 12, 2025 [id number] May 11, 2024 PEREZLILY CUEVAS L [facility] ACTIVE 05/12/2025 [id number] LILY PEREZ 2023 510 [place] [facility] POLYETHYLEN E GLYCOL 3350 PWDR,ORAL POLYETHY ELDA GLYCOL 3350 PWDR,ORA L Disconti nued TAKE 17 GRAMS BY MOUTH EVERY DAY NEEDED FOR SEVERE CONSTIPA TION SEVERE CONSTIPA TION Feb 11, 2024 510 Feb 11, 2025 [id number] A Apr 06, 2024 GIULIANO MARQUEZ [facility] ORAL DISCONT INUED (EDIT) 02/11/2025 [id number] 4 ALMA XENIA Huber 2023 510 [facility] POLYETHYLEN E GLYCOL 3350 PWDR,ORAL POLYETHY ELDA GLYCOL 3350 PWDR,ORA L Disconti nued TAKE 17 GRAMS BY MOUTH EVERY DAY NEEDED FOR SEVERE CONSTIPA TION SEVERE CONSTIPA TION Feb 09, 2023 510 Feb 10, 2024 [id number] Jul 07, 2023 ADELIAKEVEN [place] [facility] ORAL DISCONT INUED 02/10/2024 [id number] PARADKEVEN [place] 2022 510 [facility] PSYLLIUM PWDR,ORAL PSYLLIUM PWDR,ORA L Active TAKE 1 TEASPOON FUL BY MOUTH EVERY DAY FOR REGULAR BOWEL MOVEMENT S FOR REGULAR BOWEL MOVEMENT S May 11, 2024 390 May 12, 2025 [id number] May 11, 2024 PEREZ,LILY L [facility] ORAL ACTIVE 05/12/2025 [id number] 4 PEREZ,LILY L 2023 390 [facility] PSYLLIUM PWDR,ORAL PSYLLIUM PWDR,ORA L TAKE 1 TABLESPO ONFUL BY MOUTH EVERY DAY FOR REGULAR BOWEL MOVEMENT S FOR REGULAR BOWEL MOVEMENT S Feb 09, 2023 780 Feb 10, 2024 [id number] Mar 25, 2023 [place]AD[place]VEN [place] [facility] ORAL 02/10/2024 [id number] [place]VEN [place] 2022 780 [facility] QUETIAPINE FUMARATE 25MG TAB QUETIAPI NE FUMARATE 25MG TAB Disconti nued TAKE ONE TABLET BY MOUTH TWICE A DAY FOR ANXIETY FOR ANXIETY Jul 23, 2023 180 Jul 23, 2024 [id number] Aug 06, 2023 [facility]ETH LEE [facility] ORAL DISCONT INUED 07/23/2024 [id number] ELIZABETH LEE 2022 180 [place] [facility] QUETIAPINE FUMARATE 25MG TAB QUETIAPI NE FUMARATE 25MG TAB Disconti nued TAKE ONE-HALF TABLET BY MOUTH TWO TIMES A DAY FOR 5 DAYS, THEN TAKE ONE TABLET TWO TIMES A DAY FOR ANXIETY FOR ANXIETY Jul 07, 2023 55 Aug 06, 2023 [id number] Jul 07, 2023 ELIZABETH LEE [facility] ORAL DISCONT INUED 08/06/2023 [id number] ELIZABETH LEE 2022 55 [facility] SIMETHICONE 80MG TAB,CHEW SIMETHIC ONE 80MG TAB,CHEW Active CHEW ONE TABLET BY MOUTH THREE TIMES A DAY NEEDED THESE TABLETS MUST BE CHEWED FOR BLOATING /FLATULE NCE Jan 13, 2024 100 Jan 13, 2025 [id number] A Apr 06, 2024 BRENDANKEVEN BURNS XUANO [facility] ORAL ACTIVE 01/13/2025 [id number] 4 KEVEN CARDONA 2023 100 [facility] SIMETHICONE 80MG TAB,CHEW SIMETHIC ONE 80MG TAB,CHEW Disconti nued CHEW ONE TABLET BY MOUTH THREE TIMES A DAY NEEDED THESE TABLETS MUST BE CHEWED FOR BLOATING /FLATULE NCE March 13, 2023 100 March 13, 2024 [id number] Oct 14, 2023 BRENDANKEVEN BURNS [facility] ORAL DISCONT INUED 03/13/2024 [id number] BRENDAN KEVENHONORIO BURNS 2022 100 [facility] SIMVASTATIN 40MG TAB SIMVASTA TIN 40MG TAB Active TAKE ONE TABLET BY MOUTH AT BEDTIME FOR CHOLESTE ROL FOR CHOLESTE ROL Apr 06, 2024 90 Apr 07, 2025 [id number] Apr 07, 2024 CHE JAUREGUI A [facility] ORAL ACTIVE 04/07/2025 [id number] 4 SANDY JAUREGUI 2023 90 [facility] SIMVASTATIN 40MG TAB SIMVASTA TIN 40MG TAB TAKE ONE TABLET BY MOUTH AT BEDTIME FOR CHOLESTE ROL FOR CHOLESTE ROL Feb 12, 2023 90 Feb 13, 2024 [id number] Jan 12, [address] [facility] ORAL 02/13/2024 [id number] KEVEN CARDONA 2022 90 [facility] SPIRONOLACT ONE 25MG TAB SPIRONOL ACTONE 25MG TAB Active TAKE ONE TABLET BY MOUTH EVERY DAY FOR BLOOD PRESSURE Jan 13, 2024 90 Jan 13, 2025 [id number] C Apr 06, [address] [facility] ORAL ACTIVE 01/13/2025 [id number] KEVEN CARDONA 2023 90 [facility] SPIRONOLACT ONE 25MG TAB SPIRONOL ACTONE 25MG TAB Disconti nued TAKE ONE TABLET BY MOUTH EVERY DAY FOR BLOOD PRESSURE Dec 16, 2022 90 Dec 17, 2023 [id number] B Oct 14, [address] [facility] ORAL DISCONT INUED 12/17/2023 [id number] KEVEN CARDONA 2022 90 [facility] VENLAFAXINE HCL 75MG 24HR CAP,SA VENLAFAX INE HCL 75MG 24HR CAP,SA Disconti nued TAKE THREE CAPSULES BY MOUTH EVERY MORNING FOR MOOD AND ANXIETY. Jul 16, 2022 270 Jul 17, 2023 [id number] March 13, [address] [facility] ORAL DISCONT INUED 07/17/2023 [id number] LORNE AGUIRRE 2021 270 [facility] Allergies, Adverse Reactions, Alerts Combined list of allergies from Department of Defense and Veterans Affairs facilities. It does not include entries that were removed or entered in error. Substance Category Reaction Severity Reaction type Status Date Reported Comments Source LISINOPRIL Propensity to adverse reactions to drug (finding) Cough active 9 [facility] Immunizations Combined list of available immunizations from the Department of Defense and Veterans Affairs facilities. Immunization Series Date Given Administered By Site Reaction Lot Number CVX Code [employer] Receptionist Status Comments Source COVID-19 (Unowhy), MRNA, LNP-S, PF, LENIN-SUCROSE, 30 MCG/0.3 ML (AGES 12+ YEARS) 2 2023 NYLA CONWAY LEFT DELTO ID [id number] 309 complet ed [facility] COVID-19 (MODERNA), MRNA, LNP-S, PF, 50 MCG/0.5 ML (AGES 12+ YEARS) 2022 312 complet ed [facility] INFLUENZA, HIGH-DOSE, QUADRIVALENT 2022 HABHENRYELAKATHY ,ANDOM G LEFT DELTO ID [id number] 197 complet ed [facility] ZOSTER RECOMBINANT 2 2022 HABHENRYELAKATHY ,ANDOM G RIGHT DELTO ID [id number] 187 complet ed @@ ENTER DILUENT LOT# HERE [facility] ZOSTER RECOMBINANT 1 2022 JOSTIN BURTON A LEFT DELTO ID [id number] 187 complet ed @@ ENTER DILUENT LOT# HERE [facility] COVID-19 (PFIZER), MRNA, LNP-S, BIVALENT, PF, 30 MCG/0.3 ML DOSE 2022 300 complet ed [facility] INFLUENZA, UNSPECIFIED FORMULATION 2022 88 complet ed [facility] INFLUENZA VACCINE, QUADRIVALENT, ADJUVANTED 2021 205 complet ed [facility] COVID-19 (PFIZER), MRNA, LNP-S, PF, 30 MCG/0.3 ML DOSE, LENIN-SUCROSE (AGES 12+ YEARS) 4 2021 217 complet ed PFR; [id number]; 2 [facility] INFLUENZA, HIGH-DOSE, QUADRIVALENT 2021 197 complet ed [facility] COVID-19 (PFIZER), MRNA, LNP-S, PF, 30 MCG/0.3 ML DOSE 3 2020 208 complet ed PFR; [id number]; 1 [facility] COVID-19 (PFIZER), MRNA, LNP-S, PF, 30 MCG/0.3 ML DOSE 2 2020 208 complet ed [facility] COVID-19 (PFIZER), MRNA, LNP-S, PF, 30 MCG/0.3 ML DOSE 2020 208 complet ed [facility] INFLUENZA, INJECTABLE, QUADRIVALENT, PRESERVATIVE FREE 2019 150 complet ed [facility] INFLUENZA, HIGH DOSE SEASONAL 2018 135 complet ed [facility] INFLUENZA, HIGH DOSE SEASONAL 2017 135 complet ed [facility] INFLUENZA, SEASONAL, INJECTABLE 2017 141 complet ed [facility] INFLUENZA, HIGH DOSE SEASONAL 2016 135 complet ed Drug store [facility] INFLUENZA, HIGH DOSE SEASONAL 2016 135 complet ed [facility] INFLUENZA, SEASONAL, INJECTABLE, PRESERVATIVE FREE 2015 140 complet ed [facility] PNEUMOCOCCAL POLYSACCHARID E [id number] 2015 33 complet ed [facility] INFLUENZA, HIGH DOSE SEASONAL 2015 135 complet ed [facility] INFLUENZA, HIGH DOSE SEASONAL 2014 135 complet ed [facility] PNEUMOCOCCAL CONJUGATE PCV 13 2014 133 complet ed [facility] INFLUENZA, SEASONAL, INJECTABLE 2014 141 complet ed [facility] PNEUMOCOCCAL CONJUGATE PCV 13 2014 133 complet ed [facility] INFLUENZA, UNSPECIFIED FORMULATION 2013 88 complet ed [facility] TDAP 2013 115 complet ed [place] hkline,34 EB5,12/02 [facility] ZOSTER LIVE 2013 121 complet ed [employer] [id number] [facility] INFLUENZA, UNSPECIFIED FORMULATION 2012 88 complet ed [facility] PNEUMOCOCCAL, UNSPECIFIED FORMULATION 2012 109 complet ed [employer] Lot# [facility] INFLUENZA, SEASONAL, INJECTABLE 2011 141 complet ed [facility] INFLUENZA, UNSPECIFIED FORMULATION 2010 88 complet ed [facility] INFLUENZA, UNSPECIFIED FORMULATION 2009 88 complet ed [facility] NOVEL [id number]-[id number] 1-09, ALL FORMULATIONS 2009 128 complet ed [employer] [facility] INFLUENZA, UNSPECIFIED FORMULATION 2008 88 complet ed [facility] INFLUENZA, SEASONAL, INJECTABLE 2007 141 complet ed [facility] INFLUENZA, UNSPECIFIED FORMULATION 2007 88 complet ed [facility] INFLUENZA, SEASONAL, INJECTABLE 2007 141 complet ed [facility] PNEUMOCOCCAL, UNSPECIFIED FORMULATION 2007 109 complet ed [facility] TD(ADULT) UNSPECIFIED FORMULATION 2006 139 complet ed [facility] INFLUENZA, SEASONAL, INJECTABLE 2005 141 complet ed [facility] INFLUENZA, SEASONAL, INJECTABLE 2004 141 complet ed [facility] INFLUENZA, SEASONAL, INJECTABLE 2002 141 complet ed [facility] TD (ADULT), 2 LF TETANUS TOXOID, PRESERVATIVE FREE, ADSORBED 2002 09 complet ed [facility] Results Combined list of recent chemistry, hematology and other laboratory results from Department of Defense and Veterans Affairs, ranging from 15 months to all on record, depending upon the facility. Order Name Results Value Reference Range Date Interpretation Specimen Comments Source ALBUMIN/ CREATINI NE RATIO URINE CREATININE [MASS/VOLU ME] IN URINE 38.9 mg/dL 58.0 - 161.0 05/11 L Specimen Type: URINE No comment entered. Ordering Provider: LILY PEREZ Report Released Date/Time: May 11, 2024 09:33 AM Reporting Lab: [facility] [address] Performing Lab: [facility] [address] [facility] ALBUMIN/ CREATINI NE RATIO URINE MICROALBUM IN/CREATIN INE [MASS RATIO] IN URINE 52.7 mg/g{cre at} <29.9 - 29.9 05/11 H Specimen Type: URINE No comment entered. Ordering Provider: LILY PEREZ Report Released Date/Time: May 11, 2024 09:33 AM Reporting Lab: [facility] [address] Performing Lab: [facility] [address] [facility] ALBUMIN/ CREATINI NE RATIO URINE MICROALBUM IN [MASS/VOLU ME] IN URINE 20.5 mg/L <29.9 - 29.9 05/11 Specimen Type: URINE No comment entered. Ordering Provider: LILY PEREZ Report Released Date/Time: May 11, 2024 09:33 AM Reporting Lab: [facility] [address] Performing Lab: [facility] [address] [facility] NORTRIPT YLINE NORTRIPTYL INE [MASS/VOLU ME] IN SERUM OR PLASMA 50 ug/L 50 - 150 12/23 Specimen Type: SERUM Comment: This test was developed and its analytical performance characteris tics have been determined by [facility] [place]. It has not been cleared or approved by the U.S. Food and Drug Administrat ion. This assay has been validated pursuant to the CLIA regulations and is used for clinical purposes. Test Performed by [employer], [facility], [address] [place] [address] Chance Godinez M.D., Ph.D., Director of Laboratorie s , CLIA [id number] Ordering Provider: LAYO LEE Report Released Date/Time: Dec 24, 2023 10:29 AM Reporting Lab: [facility] [address] Performing Lab: [address] [facility] CREATINI NE(INCLU MARI EGFR) CREATININE [MASS/VOLU ME] IN SERUM OR PLASMA 1.0 mg/dL 0.7 - 1.2 12/23 Specimen Type: PLASMA No comment entered. Ordering Provider: KADE HERNANDEZ Report Released Date/Time: Sep 09, 2023 10:29 AM Reporting Lab: [facility] [address] Performing Lab: [facility] [address] [facility] CREATINI NE(INCLU MARI EGFR) GLOMERULAR FILTRATION RATE/1.73 SQ M.PREDICTE D [VOLUME RATE/AREA] IN SERUM, PLASMA OR BLOOD BY CREATININE -BASED FORMULA (CKD-EPI 2020) 76 60 12/23 Specimen Type: PLASMA No comment entered. Ordering Provider: KADE HERNANDEZ Report Released Date/Time: Sep 09, 2023 10:29 AM Reporting Lab: [facility] [address] Performing Lab: [facility] [address] [place] [facility] AST/SGOT ASPARTATE AMINOTRANS FERASE [ENZYMATIC ACTIVITY/V OLUME] IN SERUM OR PLASMA 18 U/L <34 - 34 12/23 Specimen Type: PLASMA No comment entered. Ordering Provider: KADE HERNANDEZ Report Released Date/Time: Sep 09, 2023 10:29 AM Reporting Lab: [facility] [address] Performing Lab: [facility] [address] [place] [facility] ALT/SGPT ALANINE AMINOTRANS FERASE [ENZYMATIC ACTIVITY/V OLUME] IN SERUM OR PLASMA 12 U/L <55 - 55 12/23 Specimen Type: PLASMA No comment entered. Ordering Provider: KADE HERNANDEZ Report Released Date/Time: Sep 09, 2023 10:29 AM Reporting Lab: [facility] [address] Performing Lab: [facility] [address] [place] [facility] CBC LEUKOCYTES [#/VOLUME] IN BLOOD BY AUTOMATED COUNT 10.66 10*3/uL 4.0 - 11.0 12/23 Specimen Type: BLOOD No comment entered. Ordering Provider: KADE HERNANDEZ Report Released Date/Time: Sep 09, 2023 10:29 AM Reporting Lab: [facility] [address] Performing Lab: [facility] [address] [place] [facility] CBC ERYTHROCYT ES [#/VOLUME] IN BLOOD BY AUTOMATED COUNT 4.32 10*6/uL 4.6 - 6.2 12/23 L Specimen Type: BLOOD No comment entered. Ordering Provider: KADE HERNANDEZ Report Released Date/Time: Sep 09, 2023 10:29 AM Reporting Lab: [facility] [address] Performing Lab: [facility] [address] [place] [facility] CBC HEMOGLOBIN [MASS/VOLU ME] IN BLOOD 13.2 g/dL 13.5 - 17.9 12/23 L Specimen Type: BLOOD No comment entered. Ordering Provider: KADE HERNANDEZ Report Released Date/Time: Sep 09, 2023 10:29 AM Reporting Lab: [facility] [address] Performing Lab: [facility] [address] [place] [facility] CBC HEMATOCRIT [VOLUME FRACTION] OF BLOOD BY AUTOMATED COUNT 40.2 41 - 54 12/23 L Specimen Type: BLOOD No comment entered. Ordering Provider: KADE HERNANDEZ Report Released Date/Time: Sep 09, 2023 10:29 AM Reporting Lab: [facility] [address] Performing Lab: [place] [phone] [place] [facility] CBC MCV [ENTITIC VOLUME] BY AUTOMATED COUNT 93.1 fL 80 - 100 12/23 Specimen Type: BLOOD No comment entered. Ordering Provider: KADE HERNANDEZ Report Released Date/Time: Sep 09, 2023 10:29 AM Reporting Lab: [facility] [address] Performing Lab: [facility] [address] [place] [facility] CBC MCH [ENTITIC MASS] BY AUTOMATED COUNT 30.6 pg 27 - 33 12/23 Specimen Type: BLOOD No comment entered. Ordering Provider: KADE HERNANDEZ Report Released Date/Time: Sep 09, 2023 10:29 AM Reporting Lab: [facility] [address] Performing Lab: [facility] [address] [place] [facility] CBC MCHC [MASS/VOLU ME] BY AUTOMATED COUNT 32.8 g/dL 32.0 - 37.5 12/23 Specimen Type: BLOOD No comment entered. Ordering Provider: KADE HERNANDEZ Report Released Date/Time: Sep 09, 2023 10:29 AM Reporting Lab: [facility] [address] Performing Lab: [facility] [address] [place] [facility] CBC PLATELETS [#/VOLUME] IN BLOOD BY AUTOMATED COUNT 347 10*3/uL 150 - 400 12/23 Specimen Type: BLOOD No comment entered. Ordering Provider: KADE HERNANDEZ Report Released Date/Time: Sep 09, 2023 10:29 AM Reporting Lab: [facility] [address] Performing Lab: [facility] [address] [facility] CBC PLATELET MEAN VOLUME [ENTITIC VOLUME] IN BLOOD BY AUTOMATED COUNT 8.9 fL 7.4 - 10.4 12/23 Specimen Type: BLOOD No comment entered. Ordering Provider: KADE HERNANDEZ Report Released Date/Time: Sep 09, 2023 10:29 AM Reporting Lab: [facility] [address] Performing Lab: [place] [address] [facility] CBC ERYTHROCYT E DISTRIBUTI ON WIDTH [RATIO] BY AUTOMATED COUNT 13.4 11.5 - 14.5 12/23 Specimen Type: BLOOD No comment entered. Ordering Provider: KADE HERNANDEZ Report Released Date/Time: Sep 09, 2023 10:29 AM Reporting Lab: [facility] [address] Performing Lab: [facility] [address] [facility] NORTRIPT YLINE NORTRIPTYL INE [MASS/VOLU ME] IN SERUM OR PLASMA 29 ug/L 50 - 150 09/07 L Specimen Type: SERUM Comment: This test was developed and its analytical performance characteris tics have been determined by [facility], [place]. It has not been cleared or approved by the U.S. Food and Drug Administrat ion. This assay has been validated pursuant to the CLIA regulations and is used for clinical purposes. Test Performed by [employer], [facility], [address] [place] [address] Chance Godinez M.D., Ph.D., Director of Laboratorie s , CLIA [id number] Ordering Provider: LAYO LEE Report Released Date/Time: Sep 07, 2023 10:18 AM Reporting Lab: [facility] [address] Performing Lab: [place] [id number] [facility] [place] [facility] HEMOGLOB IN A1C HEMOGLOBIN A1C/HEMOGL OBIN.TOTAL IN BLOOD 5.8 4.0 - 6.0 02/09 Specimen Type: BLOOD Comment: Values obtained from A1C measurement s can vary. For typical A1C assays, a reported value of 7.0 could actually be between 6.7 and 7.3 if measured by a reference method. A reported value of 9.0 could actually be between 8.7 and 9.3. Ref: http://www. ngsp.org/[place] Pdata.asp Ordering Provider: HENRIETTA CARDONA Report Released Date/Time: Dec 17, 2022 12:00 AM Reporting Lab: [facility] [address] Performing Lab: [facility] [address] [place] [facility] LIPID PANEL,NO N-FASTIN G CHOLESTERO L [MASS/VOLU ME] IN SERUM OR PLASMA 167 mg/dL <199 - 199 02/09 Specimen Type: PLASMA No comment entered. Ordering Provider: HENRIETTA CARDONA Report Released Date/Time: Dec 17, 2022 12:00 AM Reporting Lab: [facility] [address] Performing Lab: [facility] [address] [place] [facility] LIPID PANEL,NO N-FASTIN G CHOLESTERO L IN HDL [MASS/VOLU ME] IN SERUM OR PLASMA 42 mg/dL 40 02/09 Specimen Type: PLASMA No comment entered. Ordering Provider: HENRIETTA CARDONA Report Released Date/Time: Dec 17, 2022 12:00 AM Reporting Lab: [facility] [address] Performing Lab: [facility] [address] [place] [facility] LIPID PANEL,NO N-FASTIN G CHOLESTERO L IN LDL [MASS/VOLU ME] IN SERUM OR PLASMA BY CALCULATIO N 103 mg/dL <99 - 99 02/09 H Specimen Type: PLASMA No comment entered. Ordering Provider: HENRIETTA ACRDONA Report Released Date/Time: Dec 17, 2022 12:00 AM Reporting Lab: [facility] [address] Performing Lab: [facility] [address] [place] [facility] LIPID PANEL,NO N-FASTIN G CHOLESTERO L IN VLDL [MASS/VOLU ME] IN SERUM OR PLASMA BY CALCULATIO N 22 mg/dL <29 - 29 02/09 Specimen Type: PLASMA No comment entered. Ordering Provider: HENRIETTA CARDONA Report Released Date/Time: Dec 17, 2022 12:00 AM Reporting Lab: [facility] [address] Performing Lab: [facility] [address] [place] [facility] LIPID PANEL,NO N-FASTIN G CHOLESTERO L NON HDL [MASS/VOLU ME] IN SERUM OR PLASMA 125 mg/dL <129 - 129 02/09 Specimen Type: PLASMA No comment entered. Ordering Provider: HENRIETTA CARDONA Report Released Date/Time: Dec 17, 2022 12:00 AM Reporting Lab: [facility] [address] Performing Lab: [facility] [address] [place] [facility] LIPID PANEL,NO N-FASTIN G TRIGLYCERI DE [MASS/VOLU ME] IN SERUM OR PLASMA 111 mg/dL <149 - 149 02/09 Specimen Type: PLASMA No comment entered. Ordering Provider: HENRIETTA CARDONA Report Released Date/Time: Dec 17, 2022 12:00 AM Reporting Lab: [facility] [address] Performing Lab: [facility] [address] [place] [facility] EXTRA GOLD GEL TUBE EXTRA GOLD GEL TUBE RECEIVED 02/09 Specimen Type: SERUM No comment entered. Ordering Provider: HENRIETTA CARDONA Report Released Date/Time: Dec 17, 2022 12:00 AM Reporting Lab: [facility] [address] Performing Lab: [facility] [address] [place] [facility] Vital Signs Combined list of inpatient and outpatient Vital Signs from Department of Defense and Veterans Affairs, ranging from 12 months to all on record, depending upon the facility. Vital Sign Value Date Comments Source Encounters Combined list of: 1) Encounters from Department of Veterans Affairs facilities going back up to thelast 18 months. 2) Encounters from the Department of Defense facilities going back up to 280 months. Location Location Details Encounter Type Encounter Number Reason For Visit Attending Provider ADM Date DC Date Status Disposition Source [place] [facility] Outpatient Encounter [id number] 12/11 [facility] OFF[facility] O/P EST MOD 30-39 MIN [id number] Diagnos is: ICD-10- CM F33.1 Major depress joni disorde r, recurre nt, moderat e
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
CZIPRI,SHE SANTA L 01/19 [facility] O/P EST MOD 30-39 MIN [id number] Diagnos is: ICD-10- CM F33.1 Major depress joni disorde r, recurre nt, moderat e
AGUIRRE,D DANIEL SCHAEFFER 01/26 [facility] IMMUNIZATI ON ADMIN [id number] Diagnos is: ICD-10- CM Z00.01 Encount er for general adult medical exam w abnorma l finding s
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
CZIPRDYLAN Hutchinson SANTA L 02/09 [place] [facility] Outpatient Encounter [id number] 03/03 [place] [facility] Outpatient Encounter [id number] 03/04 [place] [facility] Outpatient Encounter [id number] TORSTEN NATARAJAN 03/10 [facility] O/P EST MOD 30-39 MIN [id number] Diagnos is: ICD-10- CM F33.9 Major depress joni disorde r, recurre nt, unspeci fied
Gris AGUIRRE 03/25 [facility] Out[facility] Encounter [id number] 04/15 [facility] O/P EST MOD 30-39 MIN [id number] Diagnos is: ICD-10- CM F33.1 Major depress joni disorde r, recurre nt, moderat e
Gris AGUIRRE 05/05 [place] [facility] OFF/OP CNSLTJ NEW/EST MOD 40 [id number] Diagnos is: ICD-10- CM R26.89 Other abnorma lities of gait and mobilit y
DENICE RAY ALAFALLA O 05/12 [place] [facility] Outpatient Encounter [id number] 05/13 [place] [facility] O/P EST MOD 30-39 MIN [id number] Diagnos is: ICD-10- CM F41.9 Anxiety disorde r, unspeci fied
Jai LEE E 07/07 [facility] IMMUNIZATI ON ADMIN EACH ADD [id number] Diagnos is: ICD-10- CM Z23 Encount er for immuniz ation<b r/> HABTESELAS SIE,ANDOM G 07/07 [facility] Outpatient Encounter [id number] 07/07 [facility] Outpatient Encounter [id number] Diagnos is: ICD-10- CM F41.9 Anxiety disorde r, unspeci fied
Jai LEE E 07/23 [facility] Outpatient Encounter [id number] Diagnos is: ICD-10- CM F41.9 Anxiety disorde r, unspeci fied
Jai LEE 08/11 [facility] Outpatient Encounter [id number] Diagnos is: ICD-10- CM C64.2 Maligna nt neoplas m of left kidney, except renal pelvis< br/> DAHM,PHILI PP 08/11 [facility] OFF[facility] O/P NEW LOW 30-44 MIN [id number] Diagnos is: ICD-10- CM G57.83 Other specifi ed mononeu ropathi es of bilater al lower limbs<b r/> Randi ZHAO 08/18 [facility] Outpatient Encounter [id number] 09/07 [facility] O/P EST MOD 30-39 MIN [id number] Diagnos is: ICD-10- CM F41.9 Anxiety disorde r, unspeci fied
Jai LEE 09/07 [facility] [place] [facility] Outpatient Encounter [id number] GWENDOLYN DOOLEY M 09/09 [facility] Outpatient Encounter [id number] 09/09 [facility] Outpatient Encounter [id number] 09/16 [facility] Outpatient Encounter [id number] 10/27 [facility] Outpatient Encounter [id number] Diagnos is: ICD-10- CM F33.1 Major depress joni disorde r, recurre nt, moderat e
Jai LEE E 11/04 [facility] Outpatient Encounter [id number] 11/10 [facility] Outpatient Encounter [id number] 12/22 [facility] O/P EST MOD 30 MIN [id number] Diagnos is: ICD-10- CM F34.1 Dysthym ic disorde r
Jai LEE 12/23 [facility] Outpatient Encounter [id number] Melani LEE 01/05 [facility] O/P EST MOD 30 MIN [id number] Diagnos is: ICD-10- CM F33.1 Major depress joni disorde r, recurre nt, moderat e
Jai LEE 01/26 [facility] Outpatient Encounter [id number] 03/02 [facility] QNHP OL DIG ASSMT&MGMT 5-10 [id number] Diagnos is: ICD-10- CM Z79.01 snf (curren t) use of anticoa gulants
JANENE HERNANDEZ 03/17 [facility] O/P EST MOD 30 MIN [id number] Diagnos is: ICD-10- CM F33.1 Major depress joni disorde r, recurre nt, moderat e
SHIROMAPA ULO R 05/03 [facility] ADMN SARSCOV2 VACC 1 DOSE [id number] Diagnos is: ICD-10- CM Z23 Encount er for immuniz ation<b r/> SATHYA CONWAY 05/03 [facility] Outpatient Encounter [id number] 05/11 [facility] OFF[facility] O/P EST MOD 30 MIN [id number] Diagnos is: ICD-10- CM K59.00 Constip ation, unspeci fied
PEREZLILY CUEVAS L 05/11 [facility] Social History Combined list of available smoking, tobacco, and other social history from Department of Defense and [facility] Affairs facilities. Social History Type Response Date Comment Sourc e Tobacco smoking status NHIS VA-TOBACCO USER SOME DAYS 05/11/2024 [facility] History of tobacco use VA-TOBACCO USE 30 YEARS OR MORE 05/11/2024 [facility] History of tobacco use VA-TOBACCO USER E VERY DAY 02/09/2023 [facility] History of tobacco use VA-TOBACCO USER E VERY DAY 03/20/2022 [facility] History of tobacco use VA-TOBACCO USER E VERY DAY 03/25/2021 [facility] History of tobacco use VA-TOBACCO USE MED NO 10/03/2019 [place] History of tobacco use VA-TOBACCO USE CO UNSEL NO 12/08/2018 [facility] History of tobacco use INPT TOBACCO USER 03/05/2018 [facility] History of tobacco use INPT TOBACCO USE - PT REFUSED 01/06/2018 [facility] History of tobacco use CURRENT TOBACCO USER 01/01/2018 [facility] History of tobacco use CURRENT TOBACCO USER 04/06/2017 [facility] History of tobacco use CURRENT TOBACCO USER 02/18/2016 [facility] History of tobacco use CURRENT TOBACCO USER 08/23/2014 [facility] History of tobacco use CURRENT TOBACCO USER 07/27/2013 [facility] History of tobacco use CURRENT TOBACCO USER 06/08/2012 [facility] History of tobacco use CURRENT TOBACCO USER 04/18/2011 [facility] History of tobacco use CURRENT TOBACCO USER 04/15/2010 [facility] History of tobacco use CURRENT TOBACCO USER 05/17/2009 [facility] Plan of Care List of future care activities from Department of Veterans Affairs facilities. Additional future care activities may be listed in the Assessment and Plan section. Date/Time Care Activity Care Activity Detail Facili ty 07/05/2024 AMBULATORY - PSYCHIATRY AMBULATORY - PSYC HIATRY [facility]
--- OUTSIDE RECORDS SUMMARY | 2024-05-20 11:37 | XMS_ITS | Encounter Summary ---
Author Name [facility] Organization [facility] [place] Address [address] [place] [address] Care Team Providers Care Camera Tuning Engineer Name Role Phone KEVEN CARDONA Primary Care [...] MEDIC ARE SUPPL EMENT Oct 19, 2016 [id number] [phone] SEJAL WILSON PATIENT [place] SUPPLEMEN CATHY MEDIC ARE SUPPL EMENT Oct 19, 2016 [id number] SEJAL WILSON PATIENT MEDICARE (WNR) MEDICARE (M) PART B Jun 19, 2009 PART B [id number] [phone] SEJAL WILSON PATIENT MEDICARE (WNR) MEDICARE (M) PART B Jun 19, 2009 PART B [id number] [phone] SEJAL WILSON PATIENT MEDICARE (WNR) MEDICARE (M) PART A February 17, 2008 PART A [id number] SEJAL WILSON PATIENT MEDICARE (WNR) MEDICARE (M) PART A February 17, 2008 PART A [id number] [phone] SEJAL WILSON PATIENT Selected Encounter This section includes the information on record at [place] for the Encounter. Date/Time Encounter Type Encounter Description Reason Provider Source Sep 09, 2023 09:21 AM Outpatient Encounter ADMIN PAT ACTIVTIES (MASNONCT) JAXON DOOLEY IHRnadi Encounter Template Text not used by ME Plan of Treatment: Future Appointments (+ 6 months) and Future Tests (+/- 45 days) The Plan of Treatment section includes future care activities for the [facility] This section includes future appointments and future orders which are active, pending or scheduled. Future Appointments This section includes appointments that were scheduled to occur 6 months from the date of the Encounter, up to a maximum of 20 appointments. The data comes from all [place] treatment facilities. Appointment Date/Time Appointment Type Appointme nt Facility Name Nov 04, 2023 10:00 AM AMBULATORY - PSYCHIATRY [facility] Dec 24, 2023 10:00 AM AMBULATORY - PSYCHIATRY [facility] Dec 24, 2023 11:00 AM AMBULATORY - NONE [facility] Jan 06, 2024 09:07 PM AMBULATORY - NONE [facility] Jan 27, 2024 08:30 AM AMBULATORY - PSYCHIATRY [facility] Lab Results: +/- 30 days of the encounter This section includes the Chemistry and Hematology Lab Results on record with [place] for the patient. Radiology Reports and Pathology Reports are provided separately, in subsequent sections. Lab Results This section contains the Chemistry/Hematology Results that were resulted 30 days before or 30 daysafter the date of the Encounter. Date/Time Source Result Type Result - Unit Interpretation Reference Range Comment Sep 07, 2023 10:37 AM [facility] Specimen Type: SERUM Comment: This test was developed and its analytical performance characteristics have been determined by [facility] [facility] [place], [place]. It has not been cleared or approved by the U.S. Food and Drug Administration. This assay has been validated pursuant to the CLIA regulations and is used for clinical purposes. Test Performed by [facility], [place], [address] [place] [address] Chance Godinez M.D., Ph.D., Director of Laboratories , CLIA [id number] Ordering Provider: ELIZABETH LEE Report Released Date/Time: Sep 07, 2023 10:18 AM Reporting Lab: [facility] [id number] Performing Lab: [facility] [id number] [facility] 29 ug/L L 50-150 Social History: Smoking Status (Most current) and Tobacco Use (All prior to encounter date) This section includes the most current, and the historical, smoking and tobacco- related health factors from the [place] facility where the Encounter took place. Current Smoking Status This section includes the most current smoking, or tobacco-related health factor, from the [place] facility where the Encounter took place. Date/Time Current Smoking Status Comment Facil ity Feb 09, 2023 09:30 AM VA-TOBACCO USER EVERY DAY [facility] Tobacco Use History This section includes a history of the smoking, or tobacco-related health factors, that were collected on or before the date of the Encounter. The data comes from the [place] facility where the Encounter took place. Date/Time Smoking Status/Tobacco Use Comment F acility Feb 09, 2023 09:30 AM VA-TOBACCO USE 30 YEARS OR MORE [facility] Feb 09, 2023 09:30 AM VA-TOBACCO USE ADVICE [facility] Feb 09, 2023 09:30 AM VA-TOBACCO USE BLIND HANGER NO [facility] Feb 09, 2023 09:30 AM VA-TOBACCO USE MED NO [facility] Feb 09, 2023 09:30 AM VA-TOBACCO USER EVERY DAY [facility] Mar 20, 2022 09:00 AM VA-TOBACCO DOESNT USE [place] 30 MIN WAKEUP [facility] Mar 20, 2022 09:00 AM VA-TOBACCO USE 30 YEARS OR MORE [facility] Mar 20, 2022 09:00 AM VA-TOBACCO USE ADVICE [facility] Mar 20, 2022 09:00 AM VA-TOBACCO USE BLIND HANGER NO [facility] Mar 20, 2022 09:00 AM VA-TOBACCO USE MED NO [facility] Mar 20, 2022 09:00 AM VA-TOBACCO USER EVERY DAY [facility] Mar 25, 2021 09:30 AM VA-TOBACCO USE 30 YEARS OR MORE [facility] Mar 25, 2021 09:30 AM VA-TOBACCO USE ADVICE [facility] Mar 25, 2021 09:30 AM VA-TOBACCO USE BLIND HANGER NO [facility] Mar 25, 2021 09:30 AM VA-TOBACCO USE MED NO [facility] Mar 25, 2021 09:30 AM VA-TOBACCO USE [place] 30 MIN OF WAKE UP [facility] Mar 25, 2021 09:30 AM VA-TOBACCO USER EVERY DAY [facility] Oct 03, 2019 09:42 AM VA-TOBACCO USE 30 YEARS OR MORE [facility] Oct 03, 2019 09:42 AM VA-TOBACCO USE ADVICE [facility] Oct 03, 2019 09:42 AM VA-TOBACCO USE BLIND HANGER NO [facility] Oct 03, 2019 09:42 AM VA-TOBACCO USE MED NO [facility] Oct 03, 2019 09:42 AM VA-TOBACCO USE [place] 30 MIN OF WAKE UP [facility] Oct 03, 2019 09:42 AM VA-TOBACCO USER EVERY DAY [facility] Dec 08, 2018 08:17 AM VA-TOBACCO DOESNT USE [place] 30 MIN WAKEUP [facility] Dec 08, 2018 08:17 AM VA-TOBACCO USE 30 YEARS OR MORE [facility] Dec 08, 2018 08:17 AM VA-TOBACCO USE ADVICE [facility] Dec 08, 2018 08:17 AM VA-TOBACCO USE BLIND HANGER NO [facility] Dec 08, 2018 08:17 AM VA-TOBACCO USE MED NO [facility] Dec 08, 2018 08:17 AM VA-TOBACCO USER SOME DAYS [facility] March 05, 2018 08:43 AM INPT TOBACCO COUNSELING [facility] March 05, 2018 08:43 AM INPT TOBACCO USER [place] [facility] Jan 06, 2018 08:32 AM INPT TOBACCO USE - PT REFUSED [facility] Jan 01, 2018 09:05 AM CURRENT TOBACCO USER [facility] Apr 06, 2017 08:43 AM CURRENT TOBACCO USER [facility] February 18, 2016 10:59 AM CURRENT TOBACCO USER [facility] Aug 23, 2014 08:16 AM CURRENT TOBACCO USER [facility] Jul 27, 2013 10:17 AM CURRENT TOBACCO USER [facility] Jun 08, 2012 09:13 AM CURRENT TOBACCO USER [facility] Apr 18, 2011 10:58 AM CURRENT TOBACCO USER [facility] Apr 15, 2010 08:19 AM CURRENT TOBACCO USER [facility] May 17, 2009 08:43 AM CURRENT TOBACCO USER [facility] Radiology Reports: +/- 30 days of the [...] the Encounter. The data comes from all [place] treatment facilities. Date/Time Radiology Report Provider Source Sep 07, 2023 07:33 AM LDCT INCIDENTAL PU LMONARY NODULE: JACOB WILSON [id number] -[id number] M Exm Date: SEP 07, 2023@07:33 Req Phys: STEPHANE NORTON Loc: [facility] PULM CHART CHECK LNT (Req' Img Loc: CT IMAGING Service: Unknown (Case [id number] COMPLETE) LDCT INCIDENTAL PULMONARY NODULE (CT Detailed) CPT:59529 Proc Modifiers : LOW DOSE PROTOCOL Reason for Study: Low dose CT F/U Nodule Clinical History: [place] IS NOT under investigation for COVID-19 or is COVID-19 negative follow up lung nodule Responsible provider name and phone number to notify for critical findings if other than user placing the order and pager listed below: User placing orders pager: LAST CREATININE [phone] (02/09/23) Report Status: Verified Date Reported: SEP 07, 2023 Date Verified: SEP 07, 2023 Marketing Communications Assistant E-Sig: Report: LDCT INCIDENTAL PULMONARY NODULE CLINICAL HISTORY: Follow-up nodule COMPARISON: CT chest March 03, 2023, August 11, 2022, January 22, 2022, PET CT July 16, 2021 TECHNIQUE: The study was protocoled and supervised at the local [place] facility. 2244 images were subsequently received by the [place] National [facility] (NTP) for interpretation. Total DLP (mGy*cm): 57. IV Contrast Not Administered. FINDINGS: Lungs: Biapical scarring, unchanged. Severe emphysema. Fibrotic changes with associated honeycombing at the lung bases, unchanged compared to prior. Unchanged 3 mm solid nodule in the right lower lobe (series 3 image 264). Unchanged ill-defined peripheral groundglass opacity in the right upper lobe (series 3 image 104). Mild bronchial wall thickening and some mucous plugging in the lower lobes, as before. Large Airways: The central airways are patent. Pleura: No pleural effusion or pleural thickening. No pneumothorax. Heart and pericardium: Heart size enlarged, as before. No pericardial effusion. Coronary artery calcifications. Lymph Nodes: Unchanged mildly enlarged subcarinal and right paratracheal lymph nodes measuring 1.2 cm in short axis. Vessels: Mild ectasia of ascending thoracic aorta, measuring 4.0 cm in cross section. Main pulmonary artery is enlarged, measuring 3.5 cm in cross-section, unchanged from prior, compatible with pulmonary arterial hypertension. Chest wall and lower neck: Chest wall unremarkable. Visualized thyroid gland within normal limits. Upper abdomen: Unremarkable. Osseous structures: No lytic or blastic lesions. Mild chronic compression fracture of the L1 vertebral body. Diffuse idiopathic skeletal hyperostosis. Impression: No new or enlarging pulmonary nodules. Unchanged ill-defined peripheral groundglass opacity in the right upper lobe. Severe emphysema and mild chronic bronchitis. Chronic fibrotic changes at the lung bases. Mediastinal adenopathy unchanged from prior, nonspecific, likely reactive READING PHYSICIAN: Edmond Perrin MD -[id number] 09/07/2023 10:10 [employer] [facility] [phone] (For Medical Practitioner Use Only) Attention Patients / Veterans: If you have questions or concerns about these test results, please contact your ordering provider or primary care team. Primary Interpreting Staff: RADIOLOGY,OUTSIDE SERVICE, Staff Physician / RADIOLOGY,OUTSIDE SERVICE [facility] Encounter Notes: All associated encounter notes This section contains the clinical notes associated to the Encounter. Date/Time Encounter Note(s) Provider Source Sep 09, 2023 09:25 AM LETTERS: LOCAL TITLE: FOLLOW UP RESULTS LETTER STANDARD TITLE: LETTERS DATE OF NOTE: SEP 09, 2023@09:25 ENTRY DATE: SEP 09, 2023@09:25:16 AUTHOR: JAXON DOOLEY EXP COSIGNER: URGENCY: STATUS: COMPLETED [facility] [address] [place] [address] Aug JACOB WILSON [address] [place] [id number] Dear : Your recent chest imaging on Aug showed: no significant change in your lung nodule(s) since your last scan. *THIS IS IMPORTANT: Your next CT scan should be scheduled for 24 months from the date of your last scan. You will receive a recall letter six weeks before your CT scan is due asking you to call to schedule the appointment. If you are scheduled for a scan in the future and you have symptoms of a chest cold at that time, please call number on appointment letter to reschedule for four weeks after symptoms improve. If you have any further questions or problems, please contact Lung Nodule Tracking staff at [phone]. JAXON DOOLEY, RN REGISTERED NURSE JAXON DOOLEY [facility] Sep 09, 2023 09:21 AM PULMONARY NOTE: LOCAL TITLE: PULMONARY LUNG NODULE NOTE STANDARD TITLE: PULMONARY NOTE DATE OF NOTE: SEP 09, 2023@09:21 ENTRY DATE: SEP 09, 2023@09:21:44 AUTHOR: JAXON DOOLEY EXP COSIGNER: URGENCY: STATUS: COMPLETED Lung Nodule Registry Follow Up: Date of initial imaging exam: 05/25/2020 Lnr Initial Image Date Date of current follow up image: September 07, 2023 The patient will be tracked by the [facility]. Patient risk level: High Nodule density: Sub-solid (Part-solid or Mixed Density) Number of nodules: Single nodule or >/=6 nodules Size of nodule of greatest concern: All nodules <6mm Nodule border: Regular/smooth Location of largest nodule: Right Upper Lobe Behavior: Stable (<1.5mm change in diameter). Next CT is recommended in 24 months. Results letter sent to patient. Report: LDCT INCIDENTAL PULMONARY NODULE CLINICAL HISTORY: Follow-up nodule COMPARISON: CT chest March 03, 2023, August 11, 2022, January 22, 2022, PET CT July 16, 2021 TECHNIQUE: The study was protocoled and supervised at the local [place] facility. 2244 images were subsequently received by the [place] National Telerad[facility] Program (NTP) for interpretation. Total DLP (mGy*cm): 57. IV Contrast Not Administered. FINDINGS: Lungs: Biapical scarring, unchanged. Severe emphysema. Fibrotic changes with associated honeycombing at the lung bases, unchanged compared to prior. Unchanged 3 mm solid nodule in the right lower lobe (series 3 image 264). Unchanged ill-defined peripheral groundglass opacity in the right upper lobe (series 3 image 104). Mild bronchial wall thickening and some mucous plugging in the lower lobes, as before. Large Airways: The central airways are patent. Pleura: No pleural effusion or pleural thickening. No pneumothorax. Heart and pericardium: Heart size enlarged, as before. No pericardial effusion. Coronary artery calcifications. Lymph Nodes: Unchanged mildly enlarged subcarinal and right paratracheal lymph nodes measuring 1.2 cm in short axis. Vessels: Mild ectasia of ascending thoracic aorta, measuring 4.0 cm in cross section. Main pulmonary artery is enlarged, measuring 3.5 cm in cross-section, unchanged from prior, compatible with pulmonary arterial hypertension. Chest wall and lower neck: Chest wall unremarkable. Visualized thyroid gland within normal limits. Upper abdomen: Unremarkable. Osseous structures: No lytic or blastic lesions. Mild chronic compression fracture of the L1 vertebral body. Diffuse idiopathic skeletal hyperostosis. Impression: No new or enlarging pulmonary nodules. Unchanged ill-defined peripheral groundglass opacity in the right upper lobe. Severe emphysema and mild chronic bronchitis. Chronic fibrotic changes at the lung bases. Mediastinal adenopathy unchanged from prior, nonspecific, likely reactive /es/ JAXON DOOLEY RN REGISTERED NURSE Signed: 09/09/2023 09:24 JAXON DOOLEY [facility]
--- OUTSIDE RECORDS SUMMARY | 2024-05-20 11:38 | XMS_ITS | Encounter Summary ---
Author Name [facility] [place] [facility] [place] Address [address] [place] [address] Care Team Providers Care Cloth Printer Name Role Phone KEVEN CARDONA Primary Care [...] MEDIC ARE SUPPL EMENT Oct 19, 2016 [id number] [phone] SEJAL WILSON PATIENT [place] SUPPLEMEN CATHY MEDIC ARE SUPPL EMENT Oct 19, 2016 [id number] [phone] SEJAL WILSON PATIENT MEDICARE (WNR) MEDICARE (M) PART B Jun 19, 2009 PART B [id number] SEJAL WILSON PATIENT MEDICARE (WNR) MEDICARE (M) PART B Jun 19, 2009 PART B [id number] [phone] SEJAL WILSON PATIENT MEDICARE (WNR) MEDICARE (M) PART A February 17, 2008 PART A [id number] SEJAL WILSON PATIENT MEDICARE (WNR) MEDICARE (M) PART A February 17, 2008 PART A [id number] [phone] SEJAL WILSON Meryl PATIENT Selected Encounter This section includes the information on record at [place] for the Encounter. Date/Time Encounter Type Encounter Description Reason Provider Source May 03, 2024 11:26 AM ADMN SARSCOV2 VACC 1 DOSE GENERAL INTERNAL MEDICINE ICD-10-CM Z23 Encounter for immunization NYLA VILLALBA Encounter Template Text not used by [place] Assessments - Encounter Diagnoses This section includes the primary and secondary diagnoses documented for the Encounter. Date/Time Primary/Secondary Diagnosis Diagnosis Name Provider Source May 03, 2024 11:27 AM PRIMARY Encounter for immunization NYLA VILLALBA [facility] Plan of Treatment: Future Appointments (+ 6 months) and Future Tests (+/- 45 days) The Plan of Treatment section includes future care activities for the patient from all [place] treatmentfacilities. This section includes future appointments and future orders which are active, pending or scheduled. Future Appointments This section includes appointments that were scheduled to occur 6 months from the date of the Encounter, up to a maximum of 20 appointments. The data comes from all [place] treatment facilities. Appointment Date/Time Appointment Type Appointme nt Facility Name May 11, 2024 09:30 AM AMBULATORY - MEDICINE [facility] Jul 05, 2024 10:00 AM AMBULATORY - PSYCHIATRY [facility] Lab Results: +/- 30 days of the encounter This section includes the Chemistry and Hematology Lab Results on record with [place] for the patient. Radiology Reports and Pathology Reports are provided separately, in subsequent sections. Lab Results This section contains the Chemistry/Hematology Results that were resulted 30 days before or 30 daysafter the date of the Encounter. Date/Time Source Result Type Result - Unit Interpretation Reference Range Comment May 11, 2024 09:40 AM [facility] ALBUMIN/CREATININE RATIO URINE Specimen Type: URINE No comment entered. Ordering Provider: LILY PEREZ Report Released Date/Time: May 11, 2024 09:33 AM Reporting Lab: [facility] [id number] Performing Lab: [facility] [id number] CREATININ E,UR RANDOM 38.9 mg/dL L 58.0-161.0 ALB/CREAT RATIO,UR 52.7 mg/g{creat} H <29.9 ALBUMIN,U R 20.5 mg/L <29.9 Immunizations: All administered on the encounter date This section contains immunizations associated to the Encounter. Immunization Series Date Issued Reaction Comments COVID-19 (PFIZER), MRNA, LNP -S, PF, LENIN-SUCROSE, 30 MCG/0.3 ML (AGES 12+ YEARS) 2 May 03, 2024 Social History: Smoking Status (Most current) and Tobacco Use (All prior to encounter date) This section includes the most current, and the historical, smoking and tobacco- related health factors from the [place] facility where the Encounter took place. Current Smoking Status This section includes the most current smoking, or tobacco-related health factor, from the [place] facility where the Encounter took place. Date/Time Current Smoking Status Comment Facil ity Feb 09, 2023 09:30 AM VA-TOBACCO USER EVERY DAY [facility] Tobacco Use History This section includes a history of the smoking, or tobacco-related health factors, that were collected on or before the date of the Encounter. The data comes from the [place] facility where the Encounter took place. Date/Time Smoking Status/Tobacco Use Comment F acility Feb 09, 2023 09:30 AM VA-TOBACCO USE 30 YEARS OR MORE [facility] Feb 09, 2023 09:30 AM VA-TOBACCO USE ADVICE [facility] Feb 09, 2023 09:30 AM VA-TOBACCO USE HEALTH INSPECTOR NO [facility] Feb 09, 2023 [...] Mar 20, 2022 09:00 AM VA-TOBACCO USE HEALTH INSPECTOR NO [facility] Mar 20, 2022 09:00 AM VA-TOBACCO USE MED NO [facility] Mar 20, 2022 09:00 AM VA-TOBACCO USER EVERY DAY [facility] Mar 25, 2021 09:30 AM VA-TOBACCO USE 30 YEARS OR MORE [facility] Mar 25, 2021 09:30 AM VA-TOBACCO USE ADVICE [facility] Mar 25, 2021 09:30 AM VA-TOBACCO USE HEALTH INSPECTOR NO [facility] Mar 25, 2021 [...] Oct 03, 2019 09:42 AM VA-TOBACCO USE HEALTH INSPECTOR NO [facility] Oct 03, 2019 [...] Dec 08, 2018 08:17 AM VA-TOBACCO USE HEALTH INSPECTOR NO [facility] Dec 08, 2018 08:17 AM VA-TOBACCO USE MED NO [facility] Dec 08, 2018 08:17 AM VA-TOBACCO USER SOME DAYS [facility] March 05, 2018 08:43 AM INPT TOBACCO COUNSELING [facility] March 05, 2018 08:43 AM INPT TOBACCO USER [place] [facility] Jan 06, 2018 08:32 AM INPT TOBACCO [...] the Encounter. Date/Time Encounter Note(s) Provider Source May 03, 2024 11:26 AM NURSING IMMUNIZATI ON NOTE: LOCAL TITLE: [facility] OUTPATIENT COVID VACCINE ADMINISTRATION STANDARD TITLE: NURSING IMMUNIZATION NOTE DATE OF NOTE: MAY 03, 2024@11:26 ENTRY DATE: MAY 03, 2024@11:27 AUTHOR: MITZY VILLALBA EXP COSIGNER: URGENCY: STATUS: COMPLETED Pfizer Monovalent (Comirnaty) Administered: COVID-19 (PFIZER), MRNA, LNP-S, PF, LENIN-SUCROSE, 30 MCG/0.3 ML (AGES 12+ YEARS) Date Administered: May 03, 2024 11:26 Series: Series 2 [employer] Trainer: [employer] Lot: [id number] Exp Date: Jun 18, 2024 [facility]: [phone] Admin Route/Site: INTRAMUSCULAR/LEFT DELTOID Dosage: 0.3mL Vaccine Information Statement(s): COVID-19 MRNA VACCINE (12+ YRS) VACCINE VIS Aug 06, 2023 ([facility]) Order By: Policy Administered By: Mitzy Villalba Vaccine administered without complications. /shantel/ MITZY VILLALBA RN RN Signed: 05/03/2024 11:28 MITZY VILLALBA [facility]
--- OUTSIDE RECORDS SUMMARY | 2024-05-20 11:38 | XMS_ITS | Encounter Summary ---
Author Name [facility] [place] [facility] [place] Address [address] [place] [address] Care Team Providers Care Ping Pong Table Assembler Name Role Phone KEVEN CARDONA Primary Care [...] MEDIC ARE SUPPL EMENT Oct 19, 2016 [id number] [phone] SEJAL WILSON PATIENT [place] SUPPLEMEN CATHY MEDIC ARE SUPPL EMENT Oct 19, 2016 [id number] [phone] SEJAL WILSON PATIENT MEDICARE (WNR) MEDICARE (M) PART B Jun 19, 2009 PART B [id number] [phone] SEJAL WILSON PATIENT MEDICARE (WNR) MEDICARE (M) PART B Jun 19, 2009 PART B [id number] SEJAL WILSON PATIENT MEDICARE (WNR) MEDICARE (M) PART A February 17, 2008 PART A [id number] [phone] SEJAL WILSON PATIENT MEDICARE (WNR) MEDICARE (M) PART A February 17, 2008 PART A [id number] [phone] STEVESEJAL Sheth PATIENT Selected Encounter This section includes the information on record at [place] for the Encounter. Date/Time Encounter Type Encounter Description Reason Provider Source May 03, 2024 09:30 AM OFFICE O/P EST MOD 30 MIN PSYCHOGERIATRIC - INDIVIDUAL ICD-10-CM F33.1 Major depressive disorder, recurrent, moderate SHIROMA,CHRISTIANO R IHE Encounter Template Text not used by [place] Assessments - Encounter Diagnoses This section includes the primary and secondary diagnoses documented for the Encounter. Date/Time Primary/Secondary Diagnosis Diagnosis Name Provider Source May 03, 2024 10:17 AM PRIMARY Major depressive disorder, recurrent, moderate SHIROMA,CHRISTIANO R [facility] May 03, 2024 10:17 AM SECONDARY Anxiety disorder, unspecified SHIROMA,CHRISTIANO R [facility] Plan of Treatment: Future Appointments (+ 6 months) and Future Tests (+/- 45 days) The Plan of Treatment section includes future care activities for the patient from all [place] treatmentfacilities. This section includes future appointments and future orders which are active, pending or scheduled. Future Appointments This section includes appointments that were scheduled to occur 6 months from the date of the Encounter, up to a maximum of 20 appointments. The data comes from all [place] treatment facilities. Appointment Date/Time Appointment Type Appointme nt Facility Name May 11, 2024 09:30 AM AMBULATORY - MEDICINE [facility] Jul 05, 2024 10:00 AM AMBULATORY - PSYCHIATRY [facility] Lab Results: +/- 30 days of the encounter This section includes the Chemistry and Hematology Lab Results on record with [place] for the patient. Radiology Reports and Pathology Reports are provided separately, in subsequent sections. Lab Results This section contains the Chemistry/Hematology Results that were resulted 30 days before or 30 daysafter the date of the Encounter. Date/Time Source Result Type Result - Unit Interpretation Reference Range Comment May 11, 2024 09:40 AM [facility] ALBUMIN/CREATININE RATIO URINE Specimen Type: URINE No comment entered. Ordering Provider: LILY PEREZ Report Released Date/Time: May 11, 2024 09:33 AM Reporting Lab: [facility] [id number] Performing Lab: [facility] [id number] CREATININ E,UR RANDOM 38.9 mg/dL L 58.0-161.0 ALB/CREAT RATIO,UR 52.7 mg/g{creat} H <29.9 ALBUMIN,U R 20.5 mg/L <29.9 Social History: Smoking Status (Most current) and Tobacco Use (All prior to encounter date) This section includes the most current, and the historical, smoking and tobacco- related health factors from the [place] facility where the Encounter took place. Current Smoking Status This section includes the most current smoking, or tobacco-related health factor, from the [place] facility where the Encounter took place. Date/Time Current Smoking Status Comment Facil ity Feb 09, 2023 09:30 AM [place]-TOBACCO USER EVERY DAY [facility] Tobacco Use History This section includes a history of the smoking, or tobacco-related health factors, that were collected on or before the date of the Encounter. The data comes from the [place] facility where the Encounter took place. Date/Time Smoking Status/Tobacco Use Comment F acility Feb 09, 2023 09:30 AM VA-TOBACCO USE 30 YEARS OR MORE [facility] Feb 09, 2023 09:30 AM VA-TOBACCO USE ADVICE [facility] Feb 09, 2023 09:30 AM VA-TOBACCO USE VULNERABILITY RESEARCHER NO [facility] Feb 09, 2023 09:30 AM VA-TOBACCO USE MED NO [facility] Feb 09, 2023 09:30 AM VA-TOBACCO USER EVERY DAY [facility] Mar 20, 2022 09:00 AM VA-TOBACCO DOESNT USE WI 30 MIN WAKEUP [facility] Mar 20, 2022 09:00 AM VA-TOBACCO USE 30 YEARS OR MORE [facility] Mar 20, 2022 09:00 AM VA-TOBACCO USE ADVICE [facility] Mar 20, 2022 09:00 AM VA-TOBACCO USE VULNERABILITY RESEARCHER NO [facility] Mar 20, 2022 09:00 AM VA-TOBACCO USE MED NO [facility] Mar 20, 2022 09:00 AM VA-TOBACCO USER EVERY DAY [facility] Mar 25, 2021 09:30 AM VA-TOBACCO USE 30 YEARS OR MORE [facility] Mar 25, 2021 09:30 AM VA-TOBACCO USE ADVICE [facility] Mar 25, 2021 09:30 AM VA-TOBACCO USE VULNERABILITY RESEARCHER NO [facility] Mar 25, 2021 09:30 AM VA-TOBACCO USE MED NO [facility] Mar 25, 2021 09:30 AM VA-TOBACCO USE [place] 30 MIN OF WAKE UP [facility] Mar 25, 2021 09:30 AM VA-TOBACCO USER EVERY DAY [facility] Oct 03, 2019 09:42 AM VA-TOBACCO USE 30 YEARS OR MORE [facility] Oct 03, 2019 09:42 AM VA-TOBACCO USE ADVICE [facility] Oct 03, 2019 09:42 AM VA-TOBACCO USE VULNERABILITY RESEARCHER NO [facility] Oct 03, 2019 09:42 AM VA-TOBACCO USE MED NO [facility] Oct 03, 2019 09:42 AM VA-TOBACCO USE [place] 30 MIN OF WAKE UP [facility] Oct 03, 2019 09:42 AM VA-TOBACCO USER EVERY DAY [facility] Dec 08, 2018 08:17 AM VA-TOBACCO DOESNT USE WI 30 MIN WAKEUP [facility] Dec 08, 2018 08:17 AM VA-TOBACCO USE 30 YEARS OR MORE [facility] Dec 08, 2018 08:17 AM VA-TOBACCO USE ADVICE [facility] Dec 08, 2018 08:17 AM VA-TOBACCO USE VULNERABILITY RESEARCHER NO [facility] Dec 08, 2018 08:17 AM VA-TOBACCO USE MED NO [facility] Dec 08, 2018 08:17 AM VA-TOBACCO USER SOME DAYS [facility] March 05, 2018 08:43 AM INPT TOBACCO COUNSELING [facility] March 05, 2018 08:43 AM INPT TOBACCO USER [facility] Jan 06, 2018 08:32 AM INPT TOBACCO USE - PT REFUSED [facility] Jan 01, 2018 09:05 AM CURRENT TOBACCO USER [facility] Apr 06, 2017 08:43 AM CURRENT TOBACCO USER [facility] February 18, 2016 10:59 AM CURRENT TOBACCO USER [facility] Aug 23, 2014 08:16 AM CURRENT TOBACCO USER [facility] Jul 27, 2013 10:17 AM CURRENT TOBACCO USER [facility] Jun 08, 2012 09:13 AM CURRENT TOBACCO USER [facility] Apr 18, 2011 10:58 AM CURRENT TOBACCO USER [facility] Apr 15, 2010 08:19 AM CURRENT TOBACCO USER [facility] May 17, 2009 08:43 AM CURRENT TOBACCO USER [facility] Encounter Notes: All associated encounter notes This section contains the clinical notes associated to the Encounter. Date/Time Encounter Note(s) Provider Source May 04, 2024 08:31 AM ACCOUNTING OF DISC LOSURES NOTE: LOCAL TITLE: STATE PRESCRIPTION DRUG MONITORING PROGRAM STANDARD TITLE: ACCOUNTING OF DISCLOSURES NOTE DATE OF NOTE: MAY 04, 2024@08:31:25 ENTRY DATE: MAY 04, 2024@08:31:25 AUTHOR: SHIROMA,CHRISTIANO R EXP COSIGNER: URGENCY: STATUS: COMPLETED This PDMP query was submitted by Christiano Carvajal MD. The clinical justification for this PDMP query is to review controlled substances prescribed outside of the [place], and any additional information that may become available, as an important component of standard clinical care, and in accordance with [facility] policy. Patient information was shared with the PDMP [place]. No prescription(s) for controlled substances outside the [place] were found in the last 90 days. /shantel/ CHRISTIANO CARVAJAL MD STAFF PHYSICIAN Signed: 05/04/2024 08:31 CHRISTIANO CARVAJAL [facility] May 03, 2024 10:02 AM PSYCHIATRY E & M N OTE: LOCAL TITLE: PSYCHIATRIC EVALUATION & MANAGEMENT STANDARD TITLE: PSYCHIATRY E & M NOTE DATE OF NOTE: MAY 03, 2024@10:02 ENTRY DATE: MAY 03, 2024@10:02:26 AUTHOR: CHRISTIANO CARVAJAL COSIGNER: URGENCY: STATUS: COMPLETED PSYCHIATRIC EVALUATION AND MANAGEMENT FOLLOW UP VISIT MOST RECENT VITALS: Blood Pressure: 144/66 (08/18/2023 08:58) Pulse: 91 (08/18/2023 08:58) Temperature: 97.8 F [36.6 C] (05/12/2023 10:44) Weight: 206.6 lb [93.71 kg] (02/09/2023 09:22) Body Mass Index: 28.5 Kidney Function: Creatinine: CREATININE 1.0 (12/24/23) Liver Panel: Alk Phosphatase ALK PHOSPHATASE____ ALT/SGPT: SGPT 12 (12/24/23) AST/SGOT: SGOT 18 (12/24/23) Bilirubin: BILIRUBIN, TOTAL____ Metabolic: LAB TESTS SELECTED Collection DT Specimen Test Name Result Units Ref Range 02/09/2023 08:59 BLOOD !! HEMOGLOBIN A1C 5.8 % 4.0 - 6.0 !! Indicates COMMENTS AVAILABLE...Refer to Interim Lab Report. GLUCOSE____ Lipid Panel: Cholesterol: CHOLESTEROL____ Triglyceride: TRIGLYCERIDE____ HDL: HDL____ LDL-C: LDL CALCULATION____ Mr. Wilson is an 78 year old Male with a prior psychiatric history of chronic depression, anxiety, mild neurocognitive disorder per neuropsychological testing 01/19/2023, with history of refractory psychiatric symptoms , Nonresponsive or poorly tolerant to multiple medication trials. Covering for Dr. Butler who is on leave. Patient stated that due to constipation he stopped nortriptyline. He has continued with low motivation, anhedonia, irritability, and upset when routines goes off track. He thinks this is a trait of his personality which got worse. Eats as usual but does not enjoy food as he used to. denies sleep problems. Denies feeling sad or unhappy but rather anxious. He drinks about 01-02 beers a day but never more. Lives alone ( 10 years ago and has no children). Pt denies any recent falls or feeling his mobility got worse. On the top of his symptoms is the lack of motivation and anhedonia. He said he has many things to do but feel he is not in the mood to do it. PRIOR PSYCHIATRIC HISTORY: Hospitalizations : None Suicide attempt : None ECT: None Prior individual therapy : with Dr. Prince , elected to stop 2022 Prior medication trials: Duloxetine max 60mg Escitalopram Gabapentin 300mg TID Mirtazapine 30mg Sertraline 200mg Venlafaxine 150mg Methylphenidate 5mg - ineffective, too stimulating Quetiapine Buspirone Bupropion SUBSTANCE USE: Denies use of alcohol, cannabis , stimulant or other recreational drug Current smoker MENTAL STATUS EXAM: General: Cooperative, no acute distress; hard of hearing Eye Contact: Good Psychomotor Activity: WNL (Within normal limits) Speech: Regular rate and rhythm, normal volume Mood: nervous Affect: Congruent with mood Thought Process: Linear, logical, goal oriented Thought Content: Denies SI (Suicidal Ideation), HI(Homicidal Ideation) Perceptual disturbances: No AH(Auditory Hallucinations),VH(Visual Hallucinations), or delusions Insight: Fair Judgment: Fair Attention/Concentration: Intact for exam purposes ASSESSMENT/DIAGNOSES: Mild Neurocognitive Disorder, Unspecified Persistent Depressive Disorder Anxiety Disorder, Unspecified Patient has failed or been unable to tolerate multiple antidepressants including nortriptyline. His depression profile is characterized by lack of motivation and anhedonia rather than sadness. His anxiety and lack of appetite seem derived from core symptoms of amotivation. We discussed options. SUICIDE RISK ASSESSMENT: RISK FACTORS: age, gender, social isolation, lack of purpose, depression, anxiety, cognitive impairment PROTECTIVE FACTORS: access to health care; denies current suicidal ideation, intent or plan. Denies [...] suicidal ideation or history of self-directed violence. PLAN: Medications: Start modafinil for lack of motivation at 100 mg qam for 7 days and then 200 mg qam. Side effects discussed. CC to Joseph Noland RN to call patient in 2 weeks about tolerability. Labs/Monitoring: None Next due: none Therapy/Other: Not interested RTC: 2 months or sooner PRN./ /shantel/ CHRISTIANO CARVAJAL MD STAFF PHYSICIAN Signed: 05/03/2024 10:17 Receipt Acknowledged By: 05/04/2024 08:23 /shantel/ JOSEPH NOLAND RN-BSN, CHE HOWARD-BSN, CHRISTIANO MASTERSON [facility]
--- OUTSIDE RECORDS SUMMARY | 2024-05-20 11:38 | XMS_ITS | Encounter Summary ---
Author Name [facility] [place] [facility] [place] [facility] [place] Address [address] [place] [address] Care Team Providers Care Senior Technical Support Engineer Name Role Phone KVEEN CARDONA Primary Care Provider Unavailabl e Insurance [...] MEDIC ARE SUPPL EMENT Oct 19, 2016 [id number] SEJAL WILSON PATIENT [place] SUPPLEMEN CATHY MEDIC ARE SUPPL EMENT Oct 19, 2016 [id number] SEJAL WILSON PATIENT MEDICARE (WNR) MEDICARE (M) PART B Jun 19, 2009 PART B [id number] SEJAL WILSON PATIENT MEDICARE (WNR) MEDICARE (M) PART B Jun 19, 2009 PART B [id number] [phone] SEJAL WILSON PATIENT MEDICARE (WNR) MEDICARE (M) PART A February 17, 2008 PART A [id number] SEJAL WILSON PATIENT MEDICARE (WNR) MEDICARE (M) PART A February 17, 2008 PART A [id number] SEJAL WILSON PATIENT Selected Encounter This section includes the information on record at [place] for the Encounter. Date/Time Encounter Type Encounter Description Reason Provider Source March 17, 2024 01:49 PM QNHP OL DIG ASSMT&MGMT 5-10 CLINICAL PHARMACY ICD-10-CM Z79.01 residential (current) use of anticoagulants ELAINA HERNANDEZ [facility] Encounter Template Text not used by [place] Assessments - Encounter Diagnoses This section includes the primary and secondary diagnoses documented for the Encounter. Date/Time Primary/Secondary Diagnosis Diagnosis Name Provider Source March 17, 2024 01:53 PM PRIMARY rn long term care (current) use of anticoagulants [facility] March 17, 2024 01:53 PM SECONDARY Encounter for therapeutic drug level monitoring ELAINA HERNANDEZ [facility] March 17, 2024 01:53 PM SECONDARY Unspecified atrial fibrillation ELAINA HERNANDEZ [facility] Plan of Treatment: Future Appointments (+ 6 months) and Future Tests (+/- 45 days) The Plan of Treatment section includes future care activities for the patient [facility] [place] [facility] This section includes future appointments and future orders which are active, pending or scheduled. Future Appointments This section includes appointments that were scheduled to occur 6 months from the date of the Encounter, up to a maximum of 20 appointments. The data comes from all [place] treatment facilities. Appointment Date/Time Appointment Type Appointme nt Facility Name May 03, 2024 09:30 AM AMBULATORY - PSYCHIATRY [facility] May 11, 2024 09:30 AM AMBULATORY - MEDICINE [facility] Jul 05, 2024 10:00 AM AMBULATORY - PSYCHIATRY [facility] Social History: Smoking Status (Most current) and Tobacco Use (All prior to encounter date) This section includes the most current, and the historical, smoking and tobacco- related health factors from the [place] facility where the Encounter took place. Current Smoking Status This section includes the most current smoking, or tobacco-related health factor, from the [place] facility where the Encounter took place. Date/Time Current Smoking Status Comment Jaqueline brink Feb 09, 2023 09:30 AM [place]-TO[place]ACCO DOES[place] USE [place] 30 MIN WAKEUP [facility] Tobacco Use History This section includes a history of the smoking, or tobacco-related health factors, that were collected on or before the date of the Encounter. The data comes from the [place] facility where the Encounter took place. Date/Time Smoking Status/Tobacco Use Comment F acility Feb 09, 2023 09:30 AM VA-TOBACCO USE 30 YEARS OR MORE [facility] Feb 09, 2023 09:30 AM VA-TOBACCO USE ADVICE [facility] Feb 09, 2023 09:30 AM VA-TOBACCO USE ACADEMIC AFFAIRS ASSISTANT NO [facility] Feb 09, 2023 09:30 AM VA-TOBACCO USE MED NO [facility] Feb 09, 2023 09:30 AM VA-TOBACCO USER EVERY DAY [facility] Mar 20, 2022 09:00 AM VA-TOBACCO DOESNT USE WI 30 MIN WAKEUP [facility] Mar 20, 2022 09:00 AM VA-TOBACCO USE 30 YEARS OR MORE [facility] Mar 20, 2022 09:00 AM VA-TOBACCO USE ADVICE [facility] Mar 20, 2022 09:00 AM VA-TOBACCO USE ACADEMIC AFFAIRS ASSISTANT NO [facility] Mar 20, 2022 09:00 AM VA-TOBACCO USE MED NO [facility] Mar 20, 2022 09:00 AM VA-TOBACCO USER EVERY DAY [facility] Mar 25, 2021 09:30 AM VA-TOBACCO USE 30 YEARS OR MORE [facility] Mar 25, 2021 09:30 AM VA-TOBACCO USE ADVICE [facility] Mar 25, 2021 09:30 AM VA-TOBACCO USE ACADEMIC AFFAIRS ASSISTANT NO [facility] Mar 25, 2021 09:30 AM VA-TOBACCO USE MED NO [facility] Mar 25, 2021 09:30 AM VA-TOBACCO USE WI 30 MIN OF WAKE UP [facility] Mar 25, 2021 09:30 AM VA-TOBACCO USER EVERY DAY [facility] Oct 03, 2019 09:42 AM VA-TOBACCO USE 30 YEARS OR MORE [facility] Oct 03, 2019 09:42 AM VA-TOBACCO USE ADVICE [facility] Oct 03, 2019 09:42 AM VA-TOBACCO USE ACADEMIC AFFAIRS ASSISTANT NO [facility] Oct 03, 2019 09:42 AM VA-TOBACCO USE MED NO [facility] Oct 03, 2019 09:42 AM VA-TOBACCO USE [place] 30 MIN OF WAKE UP [facility] Oct 03, 2019 09:42 AM VA-TOBACCO USER EVERY DAY [facility] Dec 08, 2018 08:17 AM VA-TOBACCO DOESNT USE WI 30 MIN WAKEUP [facility] Dec 08, 2018 08:17 AM VA-TOBACCO USE 30 YEARS OR MORE [facility] Dec 08, 2018 08:17 AM VA-TOBACCO USE ADVICE [facility] Dec 08, 2018 08:17 AM VA-TOBACCO USE ACADEMIC AFFAIRS ASSISTANT NO [facility] Dec 08, 2018 08:17 AM VA-TOBACCO USE MED NO [facility] Dec 08, 2018 08:17 AM VA-TOBACCO USER SOME DAYS [facility] March 05, 2018 08:43 AM INPT TOBACCO COUNSELING [facility] March 05, 2018 08:43 AM INPT TOBACCO USER M [place] [facility] Jan 06, 2018 08:32 AM INPT TOBACCO USE - PT REFUSED [facility] Jan 01, 2018 09:05 AM CURRENT TOBACCO USER [facility] Apr 06, 2017 08:43 AM CURRENT TOBACCO USER [facility] February 18, 2016 10:59 AM CURRENT TOBACCO USER [facility] Aug 23, 2014 08:16 AM CURRENT TOBACCO USER [facility] Jul 27, 2013 10:17 AM CURRENT TOBACCO USER [facility] Jun 08, 2012 09:13 AM CURRENT TOBACCO USER [facility] Apr 18, 2011 10:58 AM CURRENT TOBACCO USER [facility] Apr 15, 2010 08:19 AM CURRENT TOBACCO USER [facility] May 17, 2009 08:43 AM CURRENT TOBACCO USER [facility] Encounter Notes: All associated encounter notes This section contains the clinical notes associated to the Encounter. Date/Time Encounter Note(s) Provider Source March 17, 2024 01:49 PM PHARMACY OUTPATIEN T MEDICATION MGT NOTE: LOCAL TITLE: PHARMACY ANTICOAGULATION CLINIC F/U STANDARD TITLE: PHARMACY OUTPATIENT MEDICATION MGT NOTE DATE OF NOTE: MARCH 17, 2024@13:49 ENTRY DATE: MARCH 17, 2024@13:49:39 AUTHOR: GÓMEZ HERNANDEZ EXP COSIGNER: URGENCY: STATUS: COMPLETED DOAC DASHBOARD ALERT - Anticoagulant: Apixaban 5mg every 12 hours - Indication: Atrial fibrillation - Relevant PMH: - Prior major bleeds: None - Prior anticoagulants: None - Date started: 09/2017 - Anticipated duration: Indefinite - CHADS2-VASC = 4 (age +2, HTN, DM) - HAS-BLED = 2 (age, anemia) SUBJECTIVE/OBJECTIVE: Obtained from chart review. Dashboard flags: Rx renewal Labs ==== Age: 79 Height: 71.5 in [181.6 cm] (02/09/2023 09:22) Weight: 206.6 lb [93.71 kg] (02/09/2023 09:22) Collection DT Specimen Test Name Result Units Ref Range 12/24/2023 10:38 PLASMA CREATININE 1.0 mg/dL 0.7 - 1.2 02/09/2023 08:59 PLASMA CREATININE 0.8 mg/dL 0.7 - 1.2 08/11/2022 09:43 PLASMA CREATININE 0.8 mg/dL 0.7 - 1.2 12/16/2021 08:26 PLASMA CREATININE 0.9 mg/dL 0.7 - 1.2 03/25/2021 08:25 PLASMA CREATININE 0.9 mg/dL 0.7 - 1.2 05/25/2020 07:26 PLASMA CREATININE 0.9 mg/dL 0.7 - 1.2 Cockcroft & Gault (actual body weight) = 77 mL/min Collection DT Spec WBC HGB HCT PLT MCV 12/24/2023 10:38 BLOOD 10.66 13.2 L 40.2 L 347 93.1 Collection DT Specimen Test Name Result Units Ref Range 02/09/2023 08:59 PLASMA BILIRUBIN, TOTAL 0.6 mg/dL 0.2 - 1.2 02/09/2023 08:59 PLASMA ALKALINE PHOSPHAT 76 U/L 40 - 150 12/24/2023 10:38 PLASMA AST/SGOT 18 U/L Ref: <=34 12/24/2023 10:38 PLASMA ALT/SGPT 12 U/L Ref: <=55 ASSESSMENT/PLAN: Per chart review, appropriate for continued anticoagulant use. No apparent contraindications noted. Benefit of therapy likely continues to outweigh risk. Lab monitoring current and without concern. - Continue anticoagulation at current dose. - Appropriate review planned: Periodic review only as patient is monitored via dashboard for labs, drug interactions, and compliance. - Dashboard flags reviewed/cleared, if applicable. - Lab monitoring frequency defined by dashboard or as clinically indicated. - Rx reviewed; Renewed for 90 DS w/ refills x1 year. Time spent: 10 min /shantel/ STELLA VIRKD CLINICAL PHARMACIST Signed: 03/17/2024 13:53 GÓMEZ HERNANDEZ [facility]
--- OUTSIDE RECORDS SUMMARY | 2024-05-20 11:38 | XMS_ITS | Encounter Summary ---
Author Name [facility] [place] [facility] [place] [facility] [facility] [place] Address [address] [place] [address] Care Team Providers Care Well Reactivator Operator Name Role Phone KEVEN CARDONA Primary Care [...] MEDIC ARE SUPPL EMENT Oct 19, 2016 [id number] [phone] SEJAL WILSON PATIENT [place] SUPPLEMEN CATHY MEDIC ARE SUPPL EMENT Oct 19, 2016 [id number] [phone] SEJAL WILSON PATIENT MEDICARE (WNR) MEDICARE (M) PART B Jun 19, 2009 PART B [id number] SEJAL WILSON PATIENT MEDICARE (WNR) MEDICARE (M) PART B Jun 19, 2009 PART B [id number] [phone] SEJAL WILSON PATIENT MEDICARE (WNR) MEDICARE (M) PART A February 17, 2008 PART A [id number] SEJAL WILSON PATIENT MEDICARE (WNR) MEDICARE (M) PART A February 17, 2008 PART A [id number] [phone] SEJAL WILSON PATIENT Selected Encounter This section includes the information on record at [place] for the Encounter. Date/Time Encounter Type Encounter Description Reason Pro vider Source March 02, 2024 09:00 AM Outpatient Encounter PSYCHOGERIATRIC - INDIVIDUAL IHE Encounter Template Text not used by [place] Plan of Treatment: Future Appointments (+ 6 months) and Future Tests (+/- 45 days) The Plan of Treatment section includes future care [facility] the [facility] This section includes future appointments and future orders which are active, pending or scheduled. Future Appointments This section includes appointments that were scheduled to occur 6 months from the date of the Encounter, up to a maximum of 20 appointments. The data comes from all [place] treatment facilities. Appointment Date/Time Appointment Type Appointme nt Facility Name May 03, 2024 09:30 AM AMBULATORY - PSYCHIATRY [facility] May 11, 2024 09:30 AM AMBULATORY - MEDICINE [facility] Jul 05, 2024 10:00 AM AMBULATORY - PSYCHIATRY [facility] Social History: Smoking Status (Most current) and Tobacco Use (All prior to encounter date) This section includes the most current, and the historical, smoking and tobacco- related health factors from the [place] facility where the Encounter took place. Current Smoking Status This section includes the most current smoking, or tobacco-related health factor, from the [place] facility where the Encounter took place. Date/Time Current Smoking Status Comment Facil ity Feb 09, 2023 09:30 AM VA-TOBACCO DOESNT USE [place] 30 MIN WAKEUP [facility] Tobacco Use History This section includes a history of the smoking, or tobacco-related health factors, that were collected on or before the date of the Encounter. The data comes from the [place] facility where the Encounter took place. Date/Time Smoking Status/Tobacco Use Comment F acility Feb 09, 2023 09:30 AM VA-TOBACCO USE 30 YEARS OR MORE [facility] Feb 09, 2023 09:30 AM VA-TOBACCO USE ADVICE [facility] Feb 09, 2023 09:30 AM VA-TOBACCO USE DRAGGER NO [facility] Feb 09, 2023 09:30 AM VA-TOBACCO USE MED NO [facility] Feb 09, 2023 09:30 AM VA-TOBACCO USER EVERY DAY [facility] Mar 20, 2022 09:00 AM VA-TOBACCO DOESNT USE WI 30 MIN WAKEUP [facility] Mar 20, 2022 09:00 AM VA-TOBACCO USE 30 YEARS OR MORE [facility] Mar 20, 2022 09:00 AM VA-TOBACCO USE ADVICE [facility] Mar 20, 2022 09:00 AM VA-TOBACCO USE DRAGGER NO [facility] Mar 20, 2022 09:00 AM VA-TOBACCO USE MED NO [facility] Mar 20, 2022 09:00 AM VA-TOBACCO USER EVERY DAY [facility] Mar 25, 2021 09:30 AM VA-TOBACCO USE 30 YEARS OR MORE [facility] Mar 25, 2021 09:30 AM VA-TOBACCO USE ADVICE [facility] Mar 25, 2021 09:30 AM VA-TOBACCO USE DRAGGER NO [facility] Mar 25, 2021 09:30 AM VA-TOBACCO USE MED NO [facility] Mar 25, 2021 09:30 AM VA-TOBACCO USE WI 30 MIN OF WAKE UP [facility] Mar 25, 2021 09:30 AM VA-TOBACCO USER EVERY DAY [facility] Oct 03, 2019 09:42 AM VA-TOBACCO USE 30 YEARS OR MORE [facility] Oct 03, 2019 09:42 AM VA-TOBACCO USE ADVICE [facility] Oct 03, 2019 09:42 AM VA-TOBACCO USE DRAGGER NO [facility] Oct 03, 2019 09:42 AM VA-TOBACCO USE MED NO [facility] Oct 03, 2019 09:42 AM VA-TOBACCO USE [place] 30 MIN OF WAKE UP [facility] Oct 03, 2019 09:42 AM VA-TOBACCO USER EVERY DAY [facility] Dec 08, 2018 08:17 AM VA-TOBACCO DOESNT USE WI 30 MIN WAKEUP [facility] Dec 08, 2018 08:17 AM VA-TOBACCO USE 30 YEARS OR MORE [facility] Dec 08, 2018 08:17 AM VA-TOBACCO USE ADVICE [facility] Dec 08, 2018 08:17 AM VA-TOBACCO USE DRAGGER NO [facility] Dec 08, 2018 08:17 AM VA-TOBACCO USE MED NO [facility] Dec 08, 2018 08:17 AM VA-TOBACCO USER SOME DAYS [facility] March 05, 2018 08:43 AM INPT TOBACCO COUNSELING [facility] March 05, 2018 08:43 AM INPT TOBACCO USER M [facility] Jan 06, 2018 08:32 AM INPT TOBACCO USE - PT REFUSED [facility] Jan 01, 2018 09:05 AM CURRENT TOBACCO USER [facility] Apr 06, 2017 08:43 AM CURRENT TOBACCO USER [facility] February 18, 2016 10:59 AM CURRENT TOBACCO USER [facility] Aug 23, 2014 08:16 AM CURRENT TOBACCO USER [facility] Jul 27, 2013 10:17 AM CURRENT TOBACCO USER [facility] Jun 08, 2012 09:13 AM CURRENT TOBACCO USER [facility] Apr 18, 2011 10:58 AM CURRENT TOBACCO USER [facility] Apr 15, 2010 08:19 AM CURRENT TOBACCO USER [facility] May 17, 2009 08:43 AM CURRENT TOBACCO USER [facility] Encounter Notes: All associated encounter notes This section contains the clinical notes associated to the Encounter. Date/Time Encounter Note(s) Provider Source Apr 11, 2024 10:36 AM REPORT OF CONTACT: LOCAL TITLE: APPOINTMENT SCHEDULING NOTE STANDARD TITLE: REPORT OF CONTACT DATE OF NOTE: APR 11, 2024@10:36 ENTRY DATE: APR 11, 2024@10:36:13 AUTHOR: SAMAN STEPHENS COSIGNER: URGENCY: STATUS: COMPLETED APPOINTMENT SCHEDULING NOTE Has ADDENDA Attempted to schedule Return to clinic (RTC) Left [facility] for pt to call [phone]. Sent letter. /cl STEPHENS GUSSET EDGER Signed: 04/11/2024 10:36 04/12/2024 ADDENDUM STATUS: COMPLETED 3rd Attempt- Called to (re)schedule appointment with provider. Spole to pt. Pt was trying to switch over to Dr Burrell. I told him that I could not due that according to [place] policy. Pt then said I will get back to you. /cl STEPHENS GUSSET EDGER Signed: 04/12/2024 10:39 04/13/2024 ADDENDUM STATUS: COMPLETED 4th Attempt- Called to (re)schedule appointment with provider. No answer, LVM to call [phone]. No further attempts will be made to contact [place]. /cl STEPHENS GUSSET EDGER Signed: 04/13/2024 11:02 SAMAN STEPHENS [facility] March 01, 2024 03:32 PM NO SHOW NOTE: LOCAL TITLE: NO SHOW/CANCELLATION CLINIC NOTE STANDARD TITLE: NO SHOW NOTE DATE OF NOTE: MARCH 01, 2024@15:32 ENTRY DATE: MARCH 01, 2024@15:32:53 AUTHOR: SAMAN STEPHENS EXP COSIGNER: URGENCY: STATUS: COMPLETED [place] not seen for scheduled appointment due to: Other Pt was CBC for 03/02/24 @ 9:00 due to provider out. Appointment Rescheduled: No 1st Attempt: Left msg for pt to call [phone]. Sent letter. Please review patient chart and medications for renewal needs (if appropriate). /shantel/ SAMAN STEPHENS GUSSET EDGER Signed: 03/01/2024 15:36 Receipt Acknowledged By: 03/02/2024 10:51 /shantel/ JOSEPH NOLAND RN-BSN, CHE RN-BSN, CHE STEPHENS,SAMAN [facility]
[2024-05-20 11:39] LABS: C Reactive Protein* 0.8 mg/dL (0.5-1.0)
--- OUTSIDE RECORDS SUMMARY | 2024-05-20 11:39 | XMS_ITS | Encounter Summary ---
Author Name [facility] [place] [facility] [place] [facility] [place] Address [address] [place] [address] Care Team Providers Care Laborer Driver Name Role Phone ADELIAKEVEN WASHINGTON Primary Care [...] MEDIC ARE SUPPL EMENT Oct 19, 2016 [id number] [phone] SEJAL WILSON [place]IENT [place] SUPPLEMEN CATHY MEDIC ARE SUPPL EMENT Oct 19, 2016 [id number] SEJAL WILSON PATIENT MEDICARE (WNR) MEDICARE (M) PART B Jun 19, 2009 PART B [id number] [phone] SEJAL WILSON PATIENT MEDICARE (WNR) MEDICARE (M) PART B Jun 19, 2009 PART B [id number] [phone] SEJAL WILSON PATIENT MEDICARE (WNR) MEDICARE (M) PART A February 17, 2008 PART A [id number] [phone] SEJAL WILSON PATIENT MEDICARE (WNR) MEDICARE (M) PART A February 17, 2008 PART A [id number] [phone] STEVESEJAL Sheth PATIENT Selected Encounter This section includes the information on record at [place] for the Encounter. Date/Time Encounter Type Encounter Description Reason Pro vider Source May 11, 2024 09:19 AM Outpatient Encounter PRIMARY CARE/MEDICINE [facility] Encounter Template Text not used by [place] Plan of Treatment: Future Appointments (+ 6 months) and Future Tests (+/- 45 days) The Plan of Treatment section includes future care activities for the patient from all [place] treatmentfacilities. This section includes future appointments and future orders which are active, pending or scheduled. Future Appointments This section includes appointments that were scheduled to occur 6 months from the date of the Encounter, up to a maximum of 20 appointments. The data comes from all [place] treatment facilities. Appointment Date/Time Appointment Type Appointme nt Facility Name Jul 05, 2024 10:00 AM AMBULATORY - PSYCHIATRY [facility] Lab Results: +/- 30 days of the encounter This section includes the Chemistry and Hematology Lab Results on record with [place] for the patient. Radiology Reports and Pathology Reports are provided separately, in subsequent sections. Lab Results This section contains the Chemistry/Hematology Results that were resulted 30 days before or 30 daysafter the date of the Encounter. Date/Time Source Result Type Result - Unit Interpretation Reference Range Comment May 11, 2024 09:40 AM [facility] ALBUMIN/CREATININE RATIO URINE Specimen Type: URINE No comment entered. Ordering Provider: LILY PEREZ Report Released Date/Time: May 11, 2024 09:33 AM Reporting Lab: [facility] [id number] Performing Lab: [facility] [id number] CREATININ E,UR RANDOM 38.9 mg/dL L 58.0-161.0 ALB/CREAT RATIO,UR 52.7 mg/g{creat} H <29.9 ALBUMIN,U R 20.5 mg/L <29.9 Vital Signs: All taken on the encounter date This section contains inpatient and outpatient Vital Signs collected on the date of the Encounter. Date/Time Temperature Pulse Blood Pressure Respiratory Rate SP02 Pain Height Weight Body Mass Index Source May 11, 2024 09:26 AM 96.9 85 133/76 18 99 0 71.5 216.9 30 [place] [facility] Social History: Smoking Status (Most current) and Tobacco Use (All prior to encounter date) This section includes the most current, and the historical, smoking and tobacco- related health factors from the [place] facility where the Encounter took place. Current Smoking Status This section includes the most current smoking, or tobacco-related health factor, from the [place] facility where the Encounter took place. Date/Time Current Smoking Status Comment Jaqueline ity May 11, 2024 09:30 AM VA-TOBACCO USER SOME DAYS [facility] Tobacco Use History This section includes a history of the smoking, or tobacco-related health factors, that were collected on or before the date of the Encounter. The data comes from the [place] facility where the Encounter took place. Date/Time Smoking Status/Tobacco Use Comment F acruthy May 11, 2024 09:30 AM VA-TOBACCO USE 30 YEARS OR MORE [facility] May 11, 2024 09:30 AM VA-TOBACCO USE ADVICE [facility] May 11, 2024 09:30 AM VA-TOBACCO USE VERIFICATION MANAGER NO [facility] May 11, 2024 09:30 AM VA-TOBACCO USE MED NO [facility] May 11, 2024 09:30 AM VA-TOBACCO USER SOME DAYS [facility] Feb 09, 2023 09:30 AM VA-TOBACCO DOESNT USE WI 30 MIN WAKEUP [facility] Feb 09, 2023 09:30 AM VA-TOBACCO USE 30 YEARS OR MORE [facility] Feb 09, 2023 09:30 AM VA-TOBACCO USE ADVICE [facility] Feb 09, 2023 09:30 AM VA-TOBACCO USE VERIFICATION MANAGER NO [facility] Feb 09, 2023 09:30 AM VA-TOBACCO USE MED NO [facility] Feb 09, 2023 09:30 AM VA-TOBACCO USER EVERY DAY [facility] Mar 20, 2022 09:00 AM VA-TOBACCO DOESNT USE WI 30 MIN WAKEUP [facility] Mar 20, 2022 09:00 AM VA-TOBACCO USE 30 YEARS OR MORE [facility] Mar 20, 2022 09:00 AM VA-TOBACCO USE ADVICE [facility] Mar 20, 2022 09:00 AM VA-TOBACCO USE VERIFICATION MANAGER NO [facility] Mar 20, 2022 09:00 AM VA-TOBACCO USE MED NO [facility] Mar 20, 2022 09:00 AM VA-TOBACCO USER EVERY DAY [facility] Mar 25, 2021 09:30 AM VA-TOBACCO USE 30 YEARS OR MORE [facility] Mar 25, 2021 09:30 AM VA-TOBACCO USE ADVICE [facility] Mar 25, 2021 09:30 AM VA-TOBACCO USE VERIFICATION MANAGER NO [facility] Mar 25, 2021 09:30 AM VA-TOBACCO USE MED NO [facility] Mar 25, 2021 09:30 AM VA-TOBACCO USE [place] 30 MIN OF WAKE UP [facility] Mar 25, 2021 09:30 AM VA-TOBACCO USER EVERY DAY [facility] Oct 03, 2019 09:42 AM VA-TOBACCO USE 30 YEARS OR MORE [facility] Oct 03, 2019 09:42 AM VA-TOBACCO USE ADVICE [facility] Oct 03, 2019 09:42 AM VA-TOBACCO USE VERIFICATION MANAGER NO [facility] Oct 03, 2019 09:42 AM VA-TOBACCO USE MED NO [facility] Oct 03, 2019 09:42 AM VA-TOBACCO USE [place] 30 MIN OF WAKE UP [facility] Oct 03, 2019 09:42 AM VA-TOBACCO USER EVERY DAY [facility] Dec 08, 2018 08:17 AM VA-TOBACCO DOESNT USE WI 30 MIN WAKEUP [facility] Dec 08, 2018 08:17 AM VA-TOBACCO USE 30 YEARS OR MORE [facility] Dec 08, 2018 08:17 AM VA-TOBACCO USE ADVICE [facility] Dec 08, 2018 08:17 AM VA-TOBACCO USE VERIFICATION MANAGER NO [facility] Dec 08, 2018 08:17 AM VA-TOBACCO USE MED NO [facility] Dec 08, 2018 08:17 AM VA-TOBACCO USER SOME DAYS [facility] March 05, 2018 08:43 AM INPT TOBACCO COUNSELING [facility] March 05, 2018 08:43 AM INPT TOBACCO USER [place] [facility] Jan 06, 2018 08:32 AM INPT TOBACCO USE - PT REFUSED [facility] Jan 01, 2018 09:05 AM CURRENT TOBACCO USER [facility] Apr 06, 2017 08:43 AM CURRENT TOBACCO USER [facility] February 18, 2016 10:59 AM CURRENT TOBACCO USER [facility] Aug 23, 2014 08:16 AM CURRENT TOBACCO USER [facility] Jul 27, 2013 10:17 AM CURRENT TOBACCO USER [facility] Jun 08, 2012 09:13 AM CURRENT TOBACCO USER [facility] Apr 18, 2011 10:58 AM CURRENT TOBACCO USER [facility] Apr 15, 2010 08:19 AM CURRENT TOBACCO USER [facility] May 17, 2009 08:43 AM CURRENT TOBACCO USER [facility] Encounter Notes: All associated encounter notes This section contains the clinical notes associated to the Encounter. Date/Time Encounter Note(s) Provider Source May 11, 2024 09:19 AM ADVANCE DIRECTIVE: LOCAL TITLE: AD NOTIFICATION AND SCREENING STANDARD TITLE: ADVANCE DIRECTIVE DATE OF NOTE: MAY 11, 2024@09:19 ENTRY DATE: MAY 11, 2024@09:19:26 AUTHOR: ANDREW ROMAN EXP COSIGNER: URGENCY: STATUS: COMPLETED ADVANCE DIRECTIVE NOTIFICATION: Patient was given written notification of the following rights: 1. Accept or refuse any medical treatment. 2. Complete a durable power of patent prosecution attorney for health care. 3. Complete a living will. ADVANCE DIRECTIVE SCREENING: Does patient have an Advance Directive? The patient does not have an Advance Directive. The patient does not wish to create an Advance Directive for health care. Comment: declined /es/ ANDREW ROMAN Advance Instrument Repairer Signed: 05/11/2024 09:19 ANDREW ROMAN [facility]
--- OUTSIDE RECORDS SUMMARY | 2024-05-20 11:39 | XMS_ITS | Encounter Summary ---
Author Name [facility] [facility] [place] Address [address] [place] [address] Care Team Providers Care Sider Mechanic Name Role Phone KEVEN MOSELEY Primary Care Provider Unavailabl e Insurance Providers: [...] MEDIC ARE SUPPL EMENT Oct 19, 2016 [id number] [phone] SEJAL WILSON PATIENT [place] SUPPLEMEN CATHY MEDIC ARE SUPPL EMENT Oct 19, 2016 [id number] [phone] SEJAL WILSON PATIENT MEDICARE (WNR) MEDICARE (M) PART B Jun 19, 2009 PART B [id number] [phone] SEJAL WILSON PATIENT MEDICARE (WNR) MEDICARE (M) PART B Jun 19, 2009 PART B [id number] [phone] SEJAL WILSON PATIENT MEDICARE (WNR) MEDICARE (M) PART A February 17, 2008 PART A [id number] [phone] SEJAL WILSON PATIENT MEDICARE (WNR) MEDICARE (M) PART A February 17, 2008 PART A [id number] [phone] SEJAL WILSON PATIENT Selected Encounter This section includes the information on record at [place] for the Encounter. Date/Time Encounter Type Encounter Description Reason Provider Source May 11, 2024 09:30 AM OFFICE O/P EST MOD 30 MIN PRIMARY CARE/MEDICINE ICD-10-CM K59.00 Constipation, unspecified PEREZLILY CUEVAS IHE Encounter Template Text not used by [place] Assessments - Encounter Diagnoses This section includes the primary and secondary diagnoses documented for the Encounter. Date/Time Primary/Secondary Diagnosis Diagnosis Name Provider Source May 11, 2024 12:11 PM PRIMARY Constipation, unspecified PEREZ,LILY Polo [facility] May 11, 2024 12:11 PM SECONDARY Chronic obstructive pulmonary disease, unspecified PEREZ,LILY Polo [facility] May 11, 2024 12:11 PM SECONDARY Essential (primary) hypertension LILY PEREZ [facility] Plan of Treatment: Future Appointments (+ 6 months) and Future Tests (+/- 45 days) The Plan of Treatment section includes future care activities for the patient from all [place] treatmentfacilities. This section includes future appointments and future orders which are active, pending or scheduled. Future Appointments This section includes appointments that were scheduled to occur 6 months from the date of the Encounter, up to a maximum of 20 appointments. The data comes from all [place] treatment facilities. Appointment Date/Time Appointment Type Appointme nt Facility Name Jul 05, 2024 10:00 AM AMBULATORY - PSYCHIATRY [facility] Lab Results: +/- 30 days of the encounter This section includes the Chemistry and Hematology Lab Results on record with [place] for the patient. Radiology Reports and Pathology Reports are provided separately, in subsequent sections. Lab Results This section contains the Chemistry/Hematology Results that were resulted 30 days before or 30 daysafter the date of the Encounter. Date/Time Source Result Type Result - Unit Interpretation Reference Range Comment May 11, 2024 09:40 AM [facility] ALBUMIN/CREATININE RATIO URINE Specimen Type: URINE No comment entered. Ordering Provider: LILY PEREZ Report Released Date/Time: May 11, 2024 09:33 AM Reporting Lab: [facility] [id number] Performing Lab: [facility] [id number] CREATININ E,UR RANDOM 38.9 mg/dL L 58.0-161.0 [...] 99 0 71.5 216.9 30 [place] [facility] Social History: Smoking Status (Most current) and Tobacco Use (All prior to encounter date) This section includes the most current, and the historical, smoking and tobacco- related health factors from the [place] facility where the Encounter took place. Current Smoking Status This section includes the most current smoking, or tobacco-related health factor, from the [place] facility where the Encounter took place. Date/Time Current Smoking Status Comment Facil ity May 11, 2024 09:30 AM VA-TOBACCO USER SOME DAYS [facility] Tobacco Use History This section includes a history of the smoking, or tobacco-related health factors, that were collected on or before the date of the Encounter. The data comes from the [place] facility where the Encounter took place. 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 [facility] May 11, 2024 09:30 AM VA-TOBACCO USE MED NO [facility] May 11, 2024 09:30 AM VA-TOBACCO USER SOME DAYS [facility] Feb 09, 2023 09:30 AM VA-TOBACCO DOESNT USE WI 30 MIN WAKEUP [facility] Feb 09, 2023 09:30 AM VA-TOBACCO USE 30 YEARS OR MORE [facility] Feb 09, 2023 09:30 AM VA-TOBACCO USE ADVICE [facility] Feb 09, 2023 09:30 AM VA-TOBACCO USE CATALY[employer] MANUFACTURING OPERATOR NO [facility] Feb 09, 2023 09:30 AM VA-TOBACCO USE MED NO [facility] Feb 09, 2023 09:30 AM VA-TOBACCO USER EVERY DAY [facility] Mar 20, 2022 09:00 AM VA-TOBACCO DOESNT USE WI 30 MIN WAKEUP [facility] Mar 20, 2022 09:00 AM VA-TOBACCO USE 30 YEARS OR MORE [facility] Mar 20, 2022 09:00 AM VA-TOBACCO USE ADVICE [facility] Mar 20, 2022 09:00 AM VA-TOBACCO USE 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 MANUFACTURING 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 NO [facility] Mar 20, 2022 09:00 AM VA-TOBACCO USE MED NO [facility] Mar 20, 2022 09:00 AM VA-TOBACCO USER EVERY DAY [facility] Mar 25, 2021 09:30 AM VA-TOBACCO USE 30 YEARS OR MORE [facility] Mar 25, 2021 09:30 AM VA-TOBACCO USE ADVICE [facility] Mar 25, 2021 09:30 AM VA-TOBACCO USE 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 MANUFACTURING OPERATOR NO [facility] Mar 25, 2021 09:30 AM VA-TOBACCO USE MED NO [facility] Mar 25, 2021 09:30 AM VA-TOBACCO USE WI 30 MIN OF WAKE UP [facility] Mar 25, 2021 09:30 AM VA-TOBACCO USER EVERY DAY [facility] Oct 03, 2019 09:42 AM VA-TOBACCO USE 30 YEARS OR MORE [facility] Oct 03, 2019 09:42 AM VA-TOBACCO USE ADVICE [facility] Oct 03, 2019 09:42 AM VA-TOBACCO USE 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 MANUFACTURING 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 NO [facility] Oct 03, 2019 09:42 AM VA-TOBACCO USE MED NO [facility] Oct 03, 2019 09:42 AM VA-TOBACCO USE WI 30 MIN OF WAKE UP [facility] Oct 03, 2019 09:42 AM VA-TOBACCO USER EVERY DAY [facility] Dec 08, 2018 08:17 AM VA-TOBACCO DOESNT USE WI 30 MIN WAKEUP [facility] Dec 08, 2018 08:17 AM VA-TOBACCO USE 30 YEARS OR MORE [facility] Dec 08, 2018 08:17 AM VA-TOBACCO USE ADVICE [facility] Dec 08, 2018 08:17 AM VA-TOBACCO USE CATALYST MANUFACTURING OPERATOR NO [facility] Dec 08, 2018 08:17 AM VA-TOBACCO USE MED NO [facility] Dec 08, 2018 08:17 AM VA-TOBACCO USER SOME DAYS [facility] March 05, 2018 08:43 AM INPT TOBACCO COUNSELING [facility] March 05, 2018 08:43 AM INPT TOBACCO USER M [facility] Jan 06, 2018 08:32 AM INPT TOBACCO USE - PT REFUSED [facility] Jan 01, 2018 09:05 AM CURRENT TOBACCO USER [facility] Apr 06, 2017 08:43 AM CURRENT TOBACCO USER [facility] February 18, 2016 10:59 AM CURRENT TOBACCO USER [facility] Aug 23, 2014 08:16 AM CURRENT TOBACCO USER [facility] Jul 27, 2013 10:17 AM CURRENT TOBACCO USER [facility] Jun 08, 2012 09:13 AM CURRENT TOBACCO USER [facility] Apr 18, 2011 10:58 AM CURRENT TOBACCO USER [facility] Apr 15, 2010 08:19 AM CURRENT TOBACCO USER [facility] May 17, 2009 08:43 AM CURRENT TOBACCO USER [facility] Encounter Notes: All associated encounter notes This section contains the clinical notes associated to the Encounter. Date/Time Encounter Note(s) Provider Source May 11, 2024 09:56 AM ADMINISTRATIVE NOTE: LOCAL TITLE: AFTER VISIT SUMMARY NOTE STANDARD TITLE: ADMINISTRATIVE NOTE DICT DATE: MAY 11, 2024@09:56:23 ENTRY DATE: MAY 11, 2024@09:56:23 DICTATED BY: LILY PEREZ EXP COSIGNER: URGENCY: STATUS: COMPLETED The patient was provided with a copy of an after-visit summary at the conclusion of the visit. A copy of the after-visit summary provided to the patient is available in Splice. SCANNED DOCUMENT SIGNATURE NOT REQUIRED Electronically Filed: 05/11/2024 by: LILY PEREZ MD STAFF PHYSICIAN LILY PEREZ [facility] May 11, 2024 09:34 AM INTERNAL MEDICINE NOTE: LOCAL TITLE: MEDICINE CLINIC NOTE STANDARD TITLE: INTERNAL MEDICINE NOTE DATE OF NOTE: MAY 11, 2024@09:34 ENTRY DATE: MAY 11, 2024@09:35:01 AUTHOR: LILY PEREZ EXP COSIGNER: URGENCY: STATUS: COMPLETED 79 year old male with COPD, HTN, GERD, depression, type 2 diabetes, here for follow up of RE-EVALUATE INHALERS AND LOSS OF APPETITE. Last clinic visit: January [address] Moseley Pt seen for PACT [place]. Interim events: - Started modafinil for low motivation earlier this month ASSESSMENT AND PLAN # Constipation: infrequent, hard stools. has not been taking any medications regularly. no blood in stool, wt loss, or other red flags -discontinue probiotics (not helping) see AVS for full recs daily psyllium. if no BM in 2 days, miralax and senna. drink plenty of water. RTC if not improved with above measures. # COPD: refilled inhalers; he had not filled in a long time but reports he has two daily inhalers and is only out of albuterol. breathing is overall OK, not slowing him down. lung exam normal today. encouraged him to continue to cut down on cigarettes # HTN mildly elevated UACR: already on losartan. BP at goal for age. will not adjust today. 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 Has 6-month CT ordered by pulmonary to follow-up # L parotid lesion 6mm stableseen by ENT # hand shake attributed to anxiety/stiff gait not significant today. Consider neuro evaluation in the future if symptoms become more prominent # DM diet controlled - a1c 6.4 ->6.3 # LEIGH - Shortness of breath when walking. inhaler helping. stopped buspiron # B12 deficienty - on MVI # GERD c/w pantoprazole # Routine [facility] [place]- see clinical reminders Vaccines - see immunization history SHx - reduced to 1/2 ppd and prev 1.5-2ppd Preventive screening -being monitored for suspicious lung nodule and kidney mass by urology and pulmonary RETURN TO CLINIC: 4m or sooner PRN Note: TC[employer] Online software may have been used in writing this note. HPI [place]'s concerns: Stomach issues: was on a medication for anxiety that had severe side effects and constipation. Low appetite. Trying gas-X. Tried imodium OTC. No good bowel movements. small, hard. probiotics not helping glass of milk for breakfast glass of water for lunch - 16 oz two non alcoholic beers When stomach feels hard it's harder to breathe. Did ultrasound - could not find anything wrong. no blood in stool Weight: stable Breathing: using inhalers. coughing up mucus in the morning. mostly bothers him when he bends over and his stomach feels full. could walk all the way to clinic without shortness of breath. does feel short of breath when trying to exercise. currently at /2 ppd cigarettes. EXAM Today's vital signs per nurse: Pulse 85 (05/11/2024 09:26) Blood pressure Measurement DT BP 05/11/2024 09:26 133/76 08/18/2023 08:58 144/66 05/12/2023 10:44 130/70 Weight Measurement DT WEIGHT LB(KG)[BMI] 05/11/2024 09:26 216.9(98.38)[30*] 02/09/2023 09:22 206.6(93.71)[28*] 12/16/2021 10:07 215(97.52)[30*] BMI 29.9 Exam: well appearing Ambulates into clinic in no acute distress CV: Regular rate and rhythm. No murmurs appreciated. Pulm: Clear to auscultation bilaterally, with good air movement and no wheezing or crackles. Abd: Tympanic. Soft, nontender throughout without masses. +Diastasis recti. ====== ====== Clinical reminders Medication Reconciliation: Education Evaluations *Was medication education provided for NEW medications or CHANGES to medications? (including medication name, dose, route, reason for use, and potential side effects). Yes. Verbal education was provided to patient/caregiver and patient/caregiver verbalized understanding. TERATOGENIC MED & CONTRACEPTION REVIEW (Optional)... = MEDICATION RECONCILIATION = List Given: An updated medication list was provided to the patient/caregiver. Review Done: The medication list shown below was verified for accuracy and it includes all pending medications/active medications/all medications or discontinued within the last 90 days/all remote medications and non-VA medications. If a given category (i.e. remote meds) is not shown, that means that a patient doesn't have a medication(s) in that category. Allergies listed below were also reviewed/updated for accuracy. Allergies/ADR from [facility] may not display in CPRS. Use JLV MRT5 - Allergies/ADRs FACILITY ALLERGY/ADR -------- No Remote Allergy/ADR Data available for this patient [facility] LISINOPRIL Active and Recently Outpatient Medications (including Supplies): Issue Date Status Last Fill Active Outpatient Medications Refills Expiration 1) ALBUTEROL 90MCG (CFC-F) 200D ORAL INHL ACTIVE Issu:05-11-24 Qty: 2 for 50 days Sig: INHALE 2 Refills: 11 Last:05-11-24 PUFFS BY INHALATION FOUR TIMES A DAY Expr:05-12-25 NEEDED FOR SHORTNESS OF BREATH 2) APIXABAN 5MG TAB Qty: 180 for 90 days ACTIVE Issu:03-17-24 Sig: TAKE ONE TABLET BY MOUTH EVERY 12 Refills: 3 Last:03-17-24 HOURS TO PREVENT STROKES Expr:03-18-25 3) DOCUSATE NA 50MG/SENNOSIDES 8.6MG TAB ACTIVE Issu:04-06-24 Qty: 100 for 50 days Sig: TAKE 1 Refills: 5 Last:04-07-24 TABLET BY MOUTH TWICE A DAY FOR Expr:04-07-25 CONSTIPATION PREVENTION STOP IF DIARRHEA 4) HCTZ 12.5MG/LOSARTAN 50MG TAB Qty: 90 ACTIVE Issu:05-03-24 for 90 days Sig: TAKE 1 TABLET BY Refills: 3 Last:05-05-24 MOUTH EVERY DAY FOR BLOOD PRESSURE Expr:05-04-25 5) METOPROLOL TARTRATE 25MG TAB Qty: 180 ACTIVE Issu:01-13-24 for 90 days Sig: TAKE ONE TABLET BY Refills: 2 Last:04-09-24 MOUTH TWICE A DAY FOR HEART RHYTHM Expr:01-13-25 6) MODAFINIL 100MG TAB Qty: 53 for 30 days ACTIVE Issu:05-03-24 Sig: TAKE ONE TABLET BY MOUTH EVERY Refills: 2 Last:05-03-24 MORNING FOR 7 DAYS, THEN TAKE TWO Expr:11-03-24 TABLETS EVERY MORNING 7) MOMETASONE 200MCG/ACTUAT 120D ORAL INHL ACTIVE Issu:05-11-24 Qty: 3 for 90 days Sig: INHALE 2 Refills: 3 Last:05-11-24 PUFFS BY INHALATION TWICE A DAY Expr:05-12-25 RINSE MOUTH AFTER USING FOR COPD (REPLACES SYMBICORT) 8) NORTRIPTYLINE HCL 50MG CAP Qty: 180 for ACTIVE Issu:01-27-24 90 days Sig: TAKE TWO CAPSULES BY Refills: 2 Last:01-28-24 MOUTH AT BEDTIME FOR DEPRESSION Expr:01-27-25 9) OLODATEROL/TIOTROP 2.5MCG/ACTUAT 60D INH ACTIVE Issu:05-11-24 Qty: 3 for 90 days Sig: INHALE 2 Refills: 3 Last:05-11-24 PUFFS BY INHALATION EVERY DAY TO Expr:05-12-25 PREVENT TROUBLE BREATHING FOR COPD (REPLACES SPIRIVA/TIOTROPIUM) 10) PANTOPRAZOLE NA 40MG EC TAB Qty: 180 ACTIVE Issu:04-06-24 for 90 days Sig: TAKE ONE TABLET BY Refills: 3 Last:04-07-24 MOUTH TWICE A DAY NEEDED FOR ACID Expr:04-07-25 REFLUX 11) POLYETHYLENE GLYCOL 3350 ORAL PWDR Qty: ACTIVE (S) Issu:05-11-24 510 for 30 days Sig: TAKE 17 GRAMS BY Refills: 11 Last:05-11-24 MOUTH EVERY DAY NEEDED FOR SEVERE Expr:05-12-25 CONSTIPATION - DISSOLVE 1 CAPFUL (17 GRAMS) IN 8 OUNCES OF WATER OR JUICE TAKE IF NO GOOD BOWEL MOVEMENT IN 2 DAYS 12) PSYLLIUM ORAL PWD Qty: 390 for 78 days ACTIVE Issu:05-11-24 Sig: TAKE 1 TEASPOONFUL BY MOUTH EVERY Refills: 3 Last:05-11-24 DAY FOR REGULAR BOWEL MOVEMENTS Expr:05-12-25 13) SIMETHICONE 80MG CHEW TAB Qty: 100 for ACTIVE Issu:01-13-24 30 days Sig: CHEW ONE TABLET BY MOUTH Refills: 2 Last:04-06-24 THREE TIMES A DAY NEEDED THESE Expr:01-13-25 TABLETS MUST BE CHEWED FOR BLOATING/FLATULENCE 14) SIMVASTATIN 40MG TAB Qty: 90 for 90 ACTIVE Issu:04-06-24 days Sig: TAKE ONE TABLET BY MOUTH AT Refills: 3 Last:04-07-24 BEDTIME FOR CHOLESTEROL Expr:04-07-25 15) SPIRONOLACTONE 25MG TAB Qty: 90 for 90 ACTIVE Issu:01-13-24 days Sig: TAKE ONE TABLET BY MOUTH Refills: 2 Last:04-06-24 EVERY DAY FOR BLOOD PRESSURE Expr:01-13-25 Issue Date Status Last Fill Inactive Outpatient Medications Refills Expiration 1) APIXABAN 5MG TAB Qty: 180 for 90 days DISCONTINUED Issu:04-01-23 Sig: TAKE ONE TABLET BY MOUTH EVERY 12 (EDIT) Last:01-12-24 HOURS TO PREVENT BLOOD CLOTS Refills: 0 Expr:04-01-24 2) DOCUSATE NA 50MG/SENNOSIDES 8.6MG TAB Issu:02-09-23 Qty: 100 for 50 days Sig: TAKE 1 Refills: 4 Last:06-24-23 TABLET BY MOUTH TWICE A DAY FOR Expr:02-10-24 CONSTIPATION PREVENTION STOP IF DIARRHEA 3) HCTZ 12.5MG/LOSARTAN 50MG TAB Qty: 90 Issu:02-09-23 for 90 days Sig: TAKE 1 TABLET BY Refills: 0 Last:01-12-24 MOUTH EVERY DAY (REPLACES LOSARTAN Expr:02-10-24 50MG AND HYDROCHLOROTHIAZIDE 25MG) 4) LACTOBACILLUS ACIDOPHILUS TAB Qty: 100 DISCONTINUED Issu:04-06-24 for 90 days Sig: TAKE 1 TABLET BY Refills: 3 Last:04-07-24 MOUTH EVERY DAY (PROBIOTICS) Expr:04-07-25 5) LACTOBACILLUS ACIDOPHILUS TAB Qty: 100 Issu:03-25-23 for 90 days Sig: TAKE 1 TABLET BY Refills: 1 Last:01-12-24 MOUTH EVERY DAY (PROBIOTICS) Expr:03-25-24 6) METOPROLOL TARTRATE 25MG TAB Qty: 180 DISCONTINUED Issu:01-30-23 for 90 days Sig: TAKE ONE TABLET BY Refills: 0 Last:10-22-23 MOUTH TWICE A DAY FOR HEART RHYTHM Expr:01-31-24 7) METOPROLOL TARTRATE 50MG TAB Qty: 90 DISCONTINUED Issu:01-30-23 for 90 days Sig: TAKE ONE-HALF TABLET (EDIT) Last:02-04-23 BY MOUTH TWICE A DAY FOR HEART RHYTHM Refills: 3 Expr:01-31-24 8) MOMETASONE 200MCG/ACTUAT 120D ORAL INHL DISCONTINUED Issu:02-09-23 Qty: 3 for 90 days Sig: INHALE 2 Refills: 3 Last:02-10-23 PUFFS BY INHALATION TWICE A DAY Expr:02-10-24 RINSE MOUTH AFTER USING FOR COPD (REPLACES SYMBICORT) 9) NORTRIPTYLINE HCL 25MG CAP Qty: 270 for DISCONTINUED Issu:11-04-23 90 days Sig: TAKE THREE CAPSULES BY (EDIT) Last:11-09-23 MOUTH AT BEDTIME FOR DEPRESSION Refills: 0 Expr:02-02-24 10) OLODATEROL/TIOTROP 2.5MCG/ACTUAT 60D INH DISCONTINUED Issu:02-09-23 Qty: 3 for 90 days Sig: INHALE 2 Refills: 2 Last:01-12-24 PUFFS BY INHALATION EVERY DAY TO Expr:02-10-24 PREVENT TROUBLE BREATHING FOR COPD (REPLACES SPIRIVA/TIOTROPIUM) 11) PANTOPRAZOLE NA 40MG EC TAB Qty: 180 Issu:01-30-23 for 90 days Sig: TAKE ONE TABLET BY Refills: 1 Last:10-14-23 MOUTH TWICE A DAY NEEDED FOR ACID Expr:01-31-24 REFLUX 12) POLYETHYLENE GLYCOL 3350 ORAL PWDR Qty: DISCONTINUED Issu:02-11-24 510 for 30 days Sig: TAKE 17 GRAMS BY (EDIT) Last:04-06-24 MOUTH EVERY DAY NEEDED FOR SEVERE Refills: 10 Expr:02-11-25 CONSTIPATION 13) POLYETHYLENE GLYCOL 3350 ORAL PWDR Qty: DISCONTINUED Issu:02-09-23 510 for 30 days Sig: TAKE 17 GRAMS BY Refills: 10 Last:07-07-23 MOUTH EVERY DAY NEEDED FOR SEVERE Expr:02-10-24 CONSTIPATION 14) PSYLLIUM ORAL PWD Qty: 780 for 30 days Issu:02-09-23 Sig: TAKE 1 TABLESPOONFUL BY MOUTH Refills: 10 Last:03-25-23 EVERY DAY FOR REGULAR BOWEL MOVEMENTS Expr:02-10-24 15) QUETIAPINE FUMARATE 25MG TAB Qty: 180 DISCONTINUED Issu:07-23-23 for 90 days Sig: TAKE ONE TABLET BY Refills: 1 Last:08-06-23 MOUTH TWICE A DAY FOR ANXIETY Expr:07-23-24 16) SIMETHICONE 80MG CHEW TAB Qty: 100 for DISCONTINUED Issu:03-13-23 30 days Sig: CHEW ONE TABLET BY MOUTH Refills: 0 Last:10-14-23 THREE TIMES A DAY NEEDED THESE Expr:03-13-24 TABLETS MUST BE CHEWED FOR BLOATING/FLATULENCE 17) SIMVASTATIN 40MG TAB Qty: 90 for 90 Issu:02-12-23 days Sig: TAKE ONE TABLET BY MOUTH AT Refills: 0 Last:01-12-24 BEDTIME FOR CHOLESTEROL Expr:02-13-24 Start Date Active Non-VA Medications Refills Expiration 1) Non-VA MULTIVITAMIN/MINERALS CAP/TAB ACTIVE Si TABLET MOUTH 2) Non-VA POLYETHYLENE GLYCOL 3350 ACTIVE POWDER,ORAL Sig: MOUTH 34 Total Medications Time-based coding used because *more than 50 percent* of the time below was spent counseling or coordinating care. Total Time spent for F2F/VVC encounter: __28__ Minutes [X] Preparing to see the patient (ex: chart review) [X] Obtaining and/or reviewing separately obtained history [X] Performing a medically appropriate examination and/or evaluation [X] Counseling and educating the patient/family/caregiver [X] Ordering medications, tests, or procedures [ ] Referring to and communicating with other health career transition specialist (when not separately reported) [X] Documenting clinical information in the electronic or other health record [X] Independently interpreting results (not separately reported) and communicating results to the patient/family/caregiver [ ] Care coordination (not separately reported) /shantel/ LILY PEREZ MD STAFF PHYSICIAN Signed: 05/11/2024 12:12 LILY PEREZ [facility] May 11, 2024 09:20 AM INTERNAL MEDICINE OUTPATIENT NOTE: LOCAL TITLE: MEDICINE CLINIC NURSING NOTE STANDARD TITLE: INTERNAL MEDICINE OUTPATIENT NOTE DATE OF NOTE: MAY 11, 2024@09:20 ENTRY DATE: MAY 11, 2024@09:20:20 AUTHOR: HIRO MARTINEZ EXP COSIGNER: URGENCY: STATUS: COMPLETED TYPE OF VISIT: Appointment Check In Type of appointment: In-person appointment REASON FOR VISIT: c/o breathing concerns and bloating ALLERGIES: LISINOPRIL (May 17, 2009) Vital Signs: Blood Pressure: 133/76 (05/11/2024 09:26) Pulse: 85 (05/11/2024 09:26) Respiration: 18 (05/11/2024 09:26) Temperature: 96.9 F [36.1 C] (05/11/2024 09:26) Weight: 216.9 lb [98.38 kg] (05/11/2024 09:26) Height: 71.5 in [181.6 cm] (05/11/2024 09:26) BMI: 29.9 Pain: 0 (05/11/2024 09:26) PAIN SCREEN: Patient is not having significant pain that they wish to discuss with their provider today. MEDICATION Over the Counter/Herbal Medications: The patient denies taking any outside medications or herbals. Nursing Annual Screening: Fall History Screen During the past 12 months, have you had any falls? Patient does not report any falls in the past 12 months. MEDICATIONS: Patient is on one of the following medication classes: Antihypertensives, Antidepressants, Antipsychotics, Diuretics, or Controlled substance medication used for pain. Script Talk Screen Are you able to read your prescription bottles with your glasses, magnifiers or other aids? Yes or patient not taking any prescriptions. 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 Yes MOVE! Program Screen Body Mass Index (BMI)= 28.5 [place]: Collection DT Specimen Test Name Result Units Ref Range 02/09/2023 08:59 BLOOD !! HEMOGLOBIN A1C 5.8 % 4.0 - 6.0 !! Indicates COMMENTS AVAILABLE...Refer to Interim Lab Report. [place] Hgb A1C: No data available [place] Hgb A1C: No data available Point of Care Hgb A1C: POC HGB A1C____ Outpatient Nutrition Screen Body Mass Index (BMI)= 28.5 [place]: Collection DT Specimen Test Name Result Units Ref Range 02/09/2023 08:59 BLOOD !! HEMOGLOBIN A1C 5.8 % 4.0 - 6.0 !! Indicates COMMENTS AVAILABLE...Refer to Interim Lab Report. [place] Hgb A1C: No data available [place] Hgb A1C: No data available Point of Care Hgb A1C: POC HGB A1C____ Is patient's BMI less than 18.5? No Does patient have swallowing, coughing, or chewing problems affecting oral intake? No Has patient experienced unplanned weight loss or gain greater than 10 pounds over the last 2 months? No Is patient's Hgb A1C (Glycosylated Hemoglobin) greater than 9.5? No Is patient receiving Total Parenteral Nutrition (TPN) or Tube Feedings? No Patient Health Education Screen BARRIERS/SPECIAL NEEDS: Physical limitations PREFERRED STYLE OF LEARNING: Watching something Listening Reading Client Assistive Service (LEILA) Screen Does the patient require assistance with outpatient visit? No Homelessness/Food Insecurity Screen: In the past 2 months, have you been living in stable housing that you own, rent, or stay in as part of a household? Yes - Living in stable housing. Are you worried or concerned that in the next 2 months you may NOT have stable housing that you own, rent, or stay in as part of a household? No - Not worried about housing near future [facility] reports the following: Within the past 12 months, you worried whether your food would run out before you got money to buy more. Never true Within the past 12 months, the food you bought just didn't last and you didn't have money to get more. Never true Food Assistance Programs [facility] Food Assistance [facility] PTSD Screening: PC-PTSD-5 A PTSD screening test (PC-PTSD-5) was negative (score=0). IN THE PAST MONTH, have you ever had any experience that was so frightening, horrible or traumatic. For example: A serious accident or fire a physical or sexual assault or abuse An earthquake or flood A war Seeing someone be killed or seriously injured Having a loved one through homicide or suicide 1. Have you ever experienced this kind of event? NO 2. Had nightmares about the event(s) or thought about the event(s) when you did not want to? Response not required due to responses to other questions. 3. Tried hard not to think about the event(s) or went out of your way to avoid situations that reminded you of the event(s)? Response not required due to responses to other questions. 4. Been constantly on guard, watchful, or easily startled? Response not required due to responses to other questions. 5. Randall numb or detached from people, activities, or your surroundings? Response not required due to responses to other questions. 6. Randall guilty or unable to stop blaming yourself or others for the event(s) or any problems the event(s) may have caused? Response not required due to responses to other questions. Suicide Screen: C-SSRS Screening [place] Suicide Severity Rating Scale (C-SSRS) screener 1. Over the past month, have you wished you were or wished you could go to sleep and not wake up? No 2. Over the past month, have you had any actual thoughts of killing yourself? No 3. Over the past month, have you been thinking about how you might do this? Response not required due to responses to other questions. 4. Over the past month, have you had these thoughts and had some intention of acting on them? Response not required due to responses to other questions. 5. Over the past month, have you started to work out or worked out the details of how to kill yourself? Response not required due to responses to other questions. 6. If yes, at any time in the past month did you intend to carry out this plan? Response not required due to responses to other questions. 7. In your lifetime, have you ever done anything, started to do anything, or prepared to do anything to end your life (for example, collected pills, obtained a gun, gave away valuables, went to the roof but didn't jump)? No 8. If YES, was this within the past 3 months? Response not required due to responses to other questions. Alcohol Use Screen (AUDIT-C): Alcohol Screen: SCREEN FOR ALCOHOL (AUDIT-C) An alcohol screening test (AUDIT-C) was negative (score=0). 1. How often did you have a drink containing alcohol in the past year? Consider a drink to be a 12 ounce can or bottle of regular beer, 8 ounces of malt liquor, a 5 ounce glass of table wine, or a 1.5 ounce shot of liquor (like scotch, gin, or vodka). Never 2. How many drinks containing alcohol did you have on a typical day when you were drinking in the past year? Response not required due to responses to other questions. 3. How often did you have six or more drinks on one occasion in the past year? Response not required due to responses to other questions. Tobacco Use Screening: The patient uses tobacco but not every day. The patient does not use tobacco within 30 minutes of waking up. The patient has been smoking or using tobacco for thirty years or more. Patient was advised to quit smoking and/or using tobacco. Discussion with patient included: - Quitting smoking or tobacco use is one of the most important things you can do to protect and improve your health and [place] has the resources to support you. - Set a quit date when you are ready to quit. - Get support from your family and friends. - Review any past quit attempts- What helped? What didn't? - On the day you plan to quit, get rid of all cigarettes and tobacco products from your home, car or work. - Using a combination of behavioral counseling or other support strategies and FDA-approved cessation medications is the most effective way to ensure success in quitting. Patient was offered Behavioral Counseling and other support strategies to assist with quitting. Discussion with patient included: - Behavioral counseling or other support strategies greatly increases your chances of successfully quitting smoking or tobacco use by helping you develop a quit plan and providing support and other strategies to make behavioral changes to help you quit. - [facility] has a number of behavioral counseling options to help you with quitting, including: * Provide information about the facility smoking or tobacco use treatment options or clinics * [place]'s national quitline, 1-202-IPCG-VET, with counseling available Thursday-Thursday The patient was not interested in receiving additional information about how to use the treatment options discussed. Patient was offered FDA-approved cessation medications. Discussion with patient included: - Medications for Nicotine replacement therapy such as the patch, gum or lozenge, and other medications such as varenicline or bupropion, can play an important role in the initial weeks and months after you quit smoking or tobacco use. - Medications help with cravings and withdrawal symptoms and they greatly increase your chances of successfully quitting. The patient was not interested in a prescription for tobacco cessation medications. Td / Tdap Immunization: The patient declines to receive the recommended dose of Td/Tdap vaccine. Immunization: TD(ADULT) UNSPECIFIED FORMULATION Refusal Reason: PATIENT DECISION Patient refuses all immunization(s) in the Td group Date Documented: 05/11/24 09:26 EDUCATION: PARTICIPANT(s): Patient Clean Catch Urine Instructed in collection of clean catch urine. Printed instructions provided and participant(s) is able to repeat these instructions accurately. Albumin/Creatinine urine sent to lab /es/ HIRO MARTINEZ LPN Signed: 05/11/2024 09:33 HIRO MARTINEZ [facility]
--- OUTSIDE RECORDS SUMMARY | 2024-05-20 11:40 | XMS_ITS | Clinical Summary ---
Author Organization [facility] Address [place], [place] [address] Care Team Providers Care Director Report Name Role Phone Darius Temple MD Primary Care Provider [phone] Allergies Active Allergy Reactions Criticality Noted Date Comments Lisinopril Cough 05/29/2009 Ranitidine Agitation 05/26/2016 Medications Medication Sig Dispensed Refills Start Date End Date Status MULTIVITAMIN TAB take 1 tablet by oral route once daily with food 0 11/16/2007 Active SIMVASTATIN 80 MG TABIndications:Pure hypercholesterolemia one tablet in the evening 30 1 06/20/2008 Active losartan (COZAAR) 50 mg tablet Take 1 tablet by mouth once daily. 0 01/08/2012 Active Psyllium Seed-Sucrose (METAMUCIL, SUGAR,) powder Take 1 tsp by mouth once daily. 0 01/15/2017 Active apixaban (ELIQUIS) 5 mg tablet Take 1 tablet by mouth 2 times daily. 0 12/18/2017 Active metoprolol tartrate (LOPRESSOR) 50 mg tablet Take 0.5 tablets by mouth 2 times daily. 0 12/18/2017 Active pantoprazole (PROTONIX) 40 mg delayed-release tablet Take 1 tablet by mouth 2 times daily before meals. 0 02/08/2020 Active albuterol HFA 90 mcg/actuation inhalerIndications:Shortne ss of breath,Cough Inhale 1-2 Puffs by mouth every 4 hours if needed. 1 Inhaler 06/06/2020 Active losartan-hydrochlorothiazi de, 50-12.5 mg, (HYZAAR) 50-12.5 mg tablet Take 1 Tablet by mouth once daily. 02/09/2023 Active tiotropium-olodateroL (STIOLTO RESPIMAT) 2.5-2.5 mcg/actuation inhaler Inhale 2 Puffs by mouth once daily. 02/09/2023 Active nortriptyline (PAMELOR) 75 mg capsuleIndications:Other depression Take 1 Capsule (75 mg) by mouth at bedtime. 01/13/2024 Active Active Problems Problem Noted Date Diagnosed Date Obstructive emphysema 09/12/2020 Overview: Moderate to severe based on CT scan from 08/2020. Anxiety 02/08/2020 Permanent atrial fibrillation 12/18/2017 Overview: Diagnosed 10/2017 at [facility] Hyperplastic colon polyp 11/05/2015 Overview: Colonoscopy 10/2015 polyp repeat, no follow up needed. 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 Type II or unspecified type diabetes mellitus without mention of complication, not stated as uncontrolled 03/12/2006 Immunizations Name Administration Dates Next Due COVID-19 Vaccine Spikevax (M oderna 50mcg/0.5mL) 12YO+ [id number] Formula PF 09/16/2023 COVID-19 vaccine (tabulateBio NTech 30mcg/0.3mL) 12YO+ BIVALENT PF, MDV 01/03/2023 COVID-19 vaccine (Kash NTech 30mcg/0.3mL) 12YO+ LENIN-SUCROSE PF, MDV 03/04/2022 COVID-19 vaccine (Kash NTech 30mcg/0.3mL) PF, MDV 07/16/2021,01/15/2021,12/25/2020 Influenza A (H1N1), Inactivated 12/11/2009 Influenza Virus, Unspecified 11/19/2022, 08/23/2014,07/27/2013,2010,08/20/2010,07/25/2009,07/19/2008 Influenza, High-dose Inactivated 019,07/31/2018,08/11/2017,2014 Influenza, High-dose Quadriv alent Inactivated 07/07/2023,10/26/2021 Influenza, IIV3 (Age 6-35 mos) 09/20/2016 Influenza, IIV3 (Age >=3 years) 09/20/20 16,08/08/2012,09/26/2008,2007,10/16/2006,08/07/2005,10/03/2003 Influenza, IIV4 08/07/2005,10/03/2003 Influenza, Inactivated AIIV4 (Age 65+ Years) Preserv Free 08/02/2022 Pneumococcal Poly,23-Valent (Pneumovax) 09/20/2016,10/04/2004 Pneumococcal conj 13-Valent (Prevnar 13) 09/20/2015,07/19/2015 Pneumococcal, Unspecified 07/27/2013,10/19/2007 TD, UNSPECIFIED 10/19/2006 Td (Age >=7 Years) 10/03/2003 Tdap 08/23/2014 Zoster (Shingrix-RZV, recombinant) 07/07/2023, Zoster (Zostavax-ZVL, live) 08/23/2014 Family History Medical History Relation Name Comments Hypertension Brother Other Father in ld war from [place]aria? Cancer Mother Brain tumor, di ed at 85 Relation Name Status Comments Brother Father Mother Social History Tobacco Use Types Packs/Day Years Used Date Smoking Tobacco: Every Day Cigarettes 0.8 50 Started: 08/23/1970; Last attempted to quit: 08/23/2020 Smokeless Tobacco: Never Tobacco Cessation:Ready to Q uit: Not Asked; Counseling Given: Yes Alcohol Use Standard Drinks/Week Comments Not Currently 0 (1 standard drink = 0.6 oz pur e alcohol) couple beer per day PHQ-2 Answer Date Recorded PHQ-2 Score 3 12/18/2018 Social Connections Answer Date Recorded Frequency of Communication with Friends and Fami ly Not on file 01/13/2024 Financial Resource Strain Answer Date R ecorded Difficulty of Paying Living Expenses Not on file 10/19/2021 Difficulty of Paying Living Expenses Not on file 10/19/2021 Sex and Gender Information Value Date Recorded Sex Assigned at Not on file Gender Identity Not on file Sexual Orientation Not on file Obstetrics History Last Filed Vital Signs Vital Sign Reading Time Taken Comments Blood Pressure 103/64 01/13/2024 12:00 PM CDT Pulse 81 01/13/2024 12:00 PM CDT Temperature 36.5 ??C (97.7 ??F) 01/13/2024 1 2:00 PM CDT Respiratory Rate - - Oxygen Saturation 95% 01/13/2024 12: 00 PM CDT Inhaled Oxygen Concentration - - Weight 101.6 kg (223 lb 14.4 oz) 2023 12:00 PM CDT Height 181.6 cm (5' 11.5) 06/06/2020 1:59 PM CD T Body Mass Index 30.79 06/06/2020 1:59 PM CDT Plan of Treatment Health Maintenance Due Date Last Done Comments Medicare Wellness for age 65+ 02/22/2008 Depression screening for age 12+ 12/18/2018 12/18/2017, 01/15/2017, 01/02/2017, Additional history exists BMI (ht and wt on same day) for age 18+ 06/06/2021 06/06/2020, 04/01/2017, 11/26/2016, Additional history exists COVID-19 vaccine series (2022- season) 2024 09/16/2023, 01/03/2023, 03/04/2022, Additional history exists Influenza for age 65+ 06/19/2024 07/07/2023 , 11/19/2022, 08/02/2022, Additional history exists Tetanus booster 08/23/2024 08/23/2014, 10/2006, 10/03/2003 Tdap Completed 08/23/2014 Pneumococcal series for age 65+ Completed 09/20/2016, 09/20/2015, 07/19/2015, Additional history exists Zoster (shingles) series for age 50+ Completed 07/07/2023, 02/09/2023, 08/23/2014 Care Teams Director Report Relationship Specialty Start Date End Date Darius Temple MD [address] [place] [address] PCP - General Family Practice 09/01/12
[2024-05-20 11:47] LABS: SARS PCR* Negative SARS-CoV-2 (Negative)
[2024-05-20 11:47] LABS: NT Pro B Type NatriureticPept* 929 pg/mL
--- NOTE | 2024-05-20 12:22 | ED.NURSE ---
Pt walked around unit, room air, oxygen levels maintained 96-97%. Reported feeling short of breath.
--- NOTE | 2024-05-20 12:30 | CRLHL7_ITS ---
For Patients: As a result of the 21st Century Cures Act, medical imaging exams and procedure reports are released immediately into your electronic medical record. You may view this report before your referring provider. If you have questions, please contact your health care provider. INDICATION: Fatigue and shortness of breath. COMPARISON: None available. TECHNIQUE: CT of the chest, abdomen and pelvis with 110 cc of Isovue 370 intravenous contrast. Please note that all CT scans at this facility use dose modulation, iterative reconstruction, and/or weight-based dosing when appropriate to reduce radiation dose to as low as reasonably achievable. FINDINGS: CHEST Visualized Lower Neck: No lower cervical adenopathy. Lungs and Pleura: Severe upper lobe predominant emphysema. Bibasilar multilobar fibrosis. Bilateral lower lobe calcified and noncalcified micro nodules. No pleural effusion. No pneumothorax. Mediastinum: Borderline dilated mid ascending thoracic aorta which measures 4 cm in caliber (2; 60). Dilated pulmonary trunk measuring 3.4 cm. Extensive severe multivessel atherosclerotic coronary artery calcifications. Trachea and esophagus are normal in appearance. There is no mediastinal lymphadenopathy. ABDOMEN Liver: Normal hepatic attenuation. No suspicious focal hepatic lesion. No intrahepatic biliary ductal dilatation. Patent portal and hepatic veins. Gallbladder: Normal gallbladder size. Normal common duct caliber. No pericholecystic inflammatory changes. Pancreas: Normal pancreatic attenuation. No focal lesion. Normal duct caliber. No peripancreatic inflammatory changes. Spleen: Normal splenic attenuation. No suspicious focal lesion. Patent splenic artery and vein. Adrenal Glands: Symmetrical adrenal glands. No focal lesion of significance. Kidneys: Heterogeneously enhancing posterior left renal interpolar cortical lesion measuring 2 cm (series 2; image 192) representing a renal cell carcinoma until proven otherwise. Bilateral uncomplicated renal cortical cysts. No obstructing stone. Gastrointestinal tract: Normal caliber, attenuation and wall thickness of the gastrointestinal tract. No inflammatory changes. Normal mesentery. Normal appendix. Vascular: Chronic diffuse severe aortoiliac and branch vessel atherosclerotic mural calcification. Atherosclerotic ostial calcification of the celiac artery is noted. There is noncircumferential short segmental atherosclerotic mural calcification of the proximal SMA. Bilateral renal artery ostial atherosclerotic calcifications are present. Mild infrarenal abdominal aortic focal fusiform ectasia. No aneurysm. Abdominal aorta and its major proximal branches including the celiac, superior mesenteric, inferior mesenteric, renal, and bilateral common iliac arteries are patent. Inferior vena cava, portal and superior mesenteric veins are patent. Additional findings: No adenopathy per imaging criteria. No significant ascites, free fluid or pneumoperitoneum. PELVIS No bladder lesion is identified. No significant incidental findings related to the uterus and uterine adnexae. No significant incidental findings related to the prostate and seminal vesicles. No abnormal free fluid. No adenopathy per imaging criteria. SKELETON AND BODY WALL No acute or suspicious incidental findings. Chronic appearing L1 superior endplate compression deformity. Advanced right hip osteoarthrosis. Right shoulder arthroplasty. IMPRESSION: 1. Incidental solid enhancing left renal lesion representing renal cell cancer until proven otherwise. Nonemergent subspecialty referral is recommended for further management. 2. Severe emphysema. 3. Severe multivessel atherosclerotic coronary artery calcifications. 4. Borderline dilated mid ascending thoracic aorta. Otherwise, no evidence of thoracoabdominal aortic aneurysm. 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 Please note that all CT scans at this facility use dose modulation, iterative reconstruction, and/or weight-based dosing when appropriate to reduce radiation dose to as low as reasonably achievable. Dictated by Chance Chaney MD @ 05/20/2024 2:29:20 PM (Electronically Signed)
[2024-05-20 12:51] LABS: Magnesium* 2.1 mg/dL (1.5-2.6)
[2024-05-20 12:54] LABS: Mono Screen* Negative (Negative)
[2024-05-20 13:08] LABS: Vitamin D 25 Hydroxy* 43 ng/mL (30-80)
[2024-05-20 13:09] LABS: Procalcitonin* 0.05 ng/mL (<0.50)
[2024-05-20] MEDS: AZITHROMYCIN 250 MG TABLET 500 MG PO (13:12)
[2024-05-20] MEDS: METHYLPREDNISOLONE SOD SUCC 62.5 MG/ML (125) 60 MG IVP (13:13)
[2024-05-20 13:14] LABS: Troponin I* < 0.01 ng/mL (0.01-0.04)
[2024-05-20] MEDS: cefTRIAXone 1 GM in 0.9 % SODIUM CHLORIDE Mini-bag 100 ML IVPB (13:51)
== END 2024-05-20 15:11 | disposition home or self-care (01) ==
PROVIDERS: Emergency Provider Family Medicine; PCP Family Medicine
DX: R06.02 Shortness of breath (principal); N28.89 Other specified disorders of kidney and ureter
CPT/HCPCS: 36415; 71045; 71260; 74019; 74177; 80053; 81001; 82306; 83735; 83880; 84145; 84484; 85025; 85379; 86140; 86308; 87635; 93005; 96365; 99284; 99285; A9270; J0696; J2919; Q9967

== ENCOUNTER 2024-05-23 15:23 | Emergency (ER) | payer MEDICARE, BC, OTHER, SELFPAY ==
[2024-05-23] VITALS (10 sets, daily range): BP systolic 164–181; BP diastolic 72–96; PULSE 78–102; RESP 28; TEMP 36.5; O2SAT 95–99; BMI 29.7
--- OUTSIDE RECORDS SUMMARY | 2024-05-23 16:16 | XMS_ITS | Continuity of Care Document ---
Author Name [facility] Organization [facility] Care Team Providers Care Personal Lines Account Manager Name Role Phone [facility] Unavailable Unavailable Problems Combined list of problems [...] Entered By: NAHUN THOMAS Comment: Duration: indefinite [facility] Anxiety Active Condition [facility] Atrial fibrillation Active Condition [facility] Constipation [facility] COPD - Chronic obstructive pulmonary disease Active Condition [facility] Gastroesophageal reflux disease without esophagitis (SNOMED CT 702087353) Active Condition [facility] Hyperlipidemia (SNOMED CT 82249633) Active Condition [facility] Hypertension (SNOMED CT 09505163) Active Condition [facility] 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 Masses suspicious for small. Being monitored closely [facility] SCREEN Active Condition May 30 11 Entered By: MART SOLANO Comment: AAA US 05/30/11 no AAA [facility] Social and personal history finding Active Condition Aug 23, 2014 Entered By: JV DEUTSCH Comment: Born in [facility].Aug 23, 2014 Entered By: JV DEUTSCH Comment: Immigrated to [place], [place] in 1950s.Aug 23, 2014 Entered By: JV DEUTSCH Comment: Lives alone. 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 No children.Aug 23, 2014 Entered By: JV DEUTSCH Comment: [employer] [age].Aug 23, 2014 Entered By: JV DEUTSCH Comment: Goes by [employer] [facility] Solitary nodule of lung Active Condition Feb 12, 2023 Entered By: KEVEN CARDONA Comment: Monitored by pulm. Solid component slightly bigger. Suspicious for slow-growing adenocarcinoma [facility] Tobacco Use Disorder * (ICD-9-CM 305.1) Active Condition [facility] Type 2 diabetes mellitus well controlled (SNOMED CT 722440775) Active Condition [facility] Ascites Inactive Condition 02/18/2016 Aug 23, 014 Entered By: JV DEUTSCH Comment: By clinical exam; US ordered 07/23/2014 [facility] Impaired fasting glycaemia Inactive Condition 01/23/2021 [facility] Diagnosis: ICD-10-CM K59.00 Constipation, unspecified Active Diagnosis [facility] Diagnosis: ICD-10-CM Z23 Encounter for immunization Active Diagnosis [facility] Diagnosis: ICD-10-CM F33.1 Major depressive disorder, recurrent, moderate Active Diagnosis [facility] Diagnosis: ICD-10-CM 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 Active Diagnosis [facility] Diagnosis: ICD-10-CM F34.1 Dysthymic disorder Active Diagnosis [facility] Diagnosis: ICD-10-CM F41.9 Anxiety disorder, unspecified Active Diagnosis [facility] Diagnosis: ICD-10-CM 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 Diagnosis: ICD-10-CM Z00.01 Encounter for general adult medical exam w abnormal findings Active Diagnosis [facility] Diagnosis: ICD-10-CM D41.02 Neoplasm of uncertain behavior of left kidney Active Diagnosis [facility] Medications Combined list of outpatient medications from [...] May 11, 2024 2 May 12, 2025 [id number] May 11, 2024 [facility] RESPIR ATORY (INHAL ATION) ACTIVE 05/12/2025 [id number] LILY PEREZ 2023 2 [facility] APIXABAN 5MG TAB APIXABAN 5MG TAB Active TAKE ONE TABLET BY MOUTH EVERY 12 HOURS TO PREVENT STROKES TO PREVENT STROKES March 17, 2024 180 March 18, 2025 [id number] March 17, [address] [facility] ORAL ACTIVE 03/18/2025 [id number] JORGE HERNANDEZ 2023 180 [facility] APIXABAN 5MG TAB APIXABAN 5MG TAB Disconti nued TAKE ONE TABLET BY MOUTH EVERY 12 HOURS TO PREVENT BLOOD CLOTS Apr 01, 2023 180 Apr 01, 2024 [id number] F Jan 12, [address] [facility] ORAL DISCONT INUED (EDIT) 04/01/2024 [id number] Cecile BAJWA S 2022 180 [facility] DOCUSATE NA 50MG/SENNOS IDES 8.6MG TAB DOCUSATE NA 50MG/SEN NOSIDES 8.6MG TAB Active TAKE 1 TABLET BY MOUTH TWICE A DAY FOR CONSTIPA TION PREVENTI ON STOP IF DIARRHEA FOR CONSTIPA TION PREVENTI ON Apr 06, 2024 100 Apr 07, 2025 [id number] Apr 07, 2024 CHE JAUREGUIO A [facility] ORAL ACTIVE 04/07/2025 [id number] SANDY JAUREGUI CO Lyndsay 2023 100 [facility] DOCUSATE NA 50MG/SENNOS IDES 8.6MG TAB DOCUSATE NA 50MG/SEN NOSIDES 8.6MG TAB TAKE 1 TABLET BY MOUTH TWICE A DAY FOR CONSTIPA TION PREVENTI ON STOP IF DIARRHEA FOR CONSTIPA TION PREVENTI ON Feb 09, 2023 100 Feb 10, 2024 [id number] Jun 24, 2023 [facility] ORAL 02/10/2024 [id number] KEVEN CARDONA 2022 100 [facility] HYDROCHLORO THIAZIDE 12.5MG/LOSA RTAN POTASSIUM 50MG TAB HYDROCHL OROTHIAZ MCKENZIE 12.5MG/L OSARTAN POTASSIU M 50MG TAB Active TAKE 1 TABLET BY MOUTH EVERY DAY FOR BLOOD PRESSURE FOR BLOOD PRESSURE May 03, 2024 90 May 04, 2025 [id number] May 05, 2024 KEVEN CARDONA [facility] ORAL ACTIVE 05/04/2025 [id number] KEVEN CARDONA 2023 90 [facility] HYDROCHLORO THIAZIDE 12.5MG/LOSA RTAN POTASSIUM 50MG TAB HYDROCHL OROTHIAZ MCKENZIE 12.5MG/L OSARTAN POTASSIU M 50MG TAB TAKE 1 TABLET BY MOUTH EVERY DAY (REPLACE S LOSARTAN 50MG AND HYDROCHL OROTHIAZ MCKENZIE 25MG) Feb 09, 2023 90 Feb 10, 2024 [id number] B Jan 12, 2024 KEVEN CARDONA [facility] ORAL 02/10/2024 [id number] KEVEN CARDONA 2022 90 [facility] LACTOBACILL US ACIDOPHILUS TAB LACTOBAC ILLUS ACIDOPHI YEISON TAB Disconti nued TAKE 1 TABLET BY MOUTH EVERY DAY (PROBIOT ICS) Apr 06, 2024 100 Apr 07, 2025 [id number] Apr 07, 2024 CHE JAUREGUI RCO A [facility] ORAL DISCONT INUED BY PROVIDE R 04/07/2025 [id number] SANDY JAUREGUI CO A 2023 100 [facility] LACTOBACILL US ACIDOPHILUS TAB LACTOBAC ILLUS ACIDOPHI YEISON TAB TAKE 1 TABLET BY MOUTH EVERY DAY (PROBIOT ICS) Mar 25, 2023 100 Mar 25, 2024 [id number] A Jan 12, 2024 KEVEN CARDONAO [facility] ORAL 03/25/2024 [id number] KEVEN CARDONA 2022 100 [facility] METHYLPHENI DATE HCL 5MG TAB METHYLPH ENIDATE HCL 5MG TAB Disconti nued TAKE ONE TABLET BY MOUTH EVERY MORNING FOR 1 WEEK, THEN TAKE ONE TABLET TWICE A DAY FOR MOTIVATI ON TAKE SECOND DOSE IN THE EARLY OO N. WINDOW PICKUP 03/25/23 FOR MOTIVATI ON Mar 25, 2023 49 Apr 24, 2023 [id number] Mar 25, [address] [facility] ORAL DISCONT INUED 04/24/2023 [id number] LORNE AGUIRRE 2022 49 [facility] METOPROLOL TARTRATE 25MG TAB METOPROL OL TARTRATE 25MG TAB Active TAKE ONE TABLET BY MOUTH TWICE A DAY FOR HEART RHYTHM Jan 13, 2024 180 Jan 13, 2025 [id number] A Apr 09, [address] [facility] ORAL ACTIVE 01/13/2025 [id number] KEVEN CARDONA 2023 180 [facility] METOPROLOL TARTRATE 25MG TAB METOPROL OL TARTRATE 25MG TAB Disconti nued TAKE ONE TABLET BY MOUTH TWICE A DAY FOR HEART RHYTHM Feb 04, 2023 180 Jan 31, 2024 [id number] Oct 22, [address] [facility] ORAL DISCONT INUED 01/31/2024 [id number] KEVEN CARDONA 2022 180 [facility] MODAFINIL 100MG TAB MODAFINI L 100MG TAB Active TAKE ONE TABLET BY MOUTH EVERY MORNING FOR 7 DAYS, THEN TAKE TWO TABLETS EVERY MORNING AMOTIVAT ION May 03, 2024 53 Nov 03, 2024 [id number] May 03, [address] [facility] ORAL ACTIVE 11/03/2024 [id number] 4 Ralph CARVAJAL TALON R 2023 53 [facility] MOMETASONE FUROATE 200MCG/ACTU AT INHL,ORAL,1 20D,13GM MOMETASO NE FUROATE 200MCG/A CTUAT INHL,ORA L,120D,1 3GM Active INHALE 2 PUFFS BY INHALATI ON TWICE A DAY RINSE MOUTH AFTER USING FOR COPD (REPLACE S SYMBICOR T) May 11, 2024 3 May 12, 2025 [id number] B May 11, [address] [facility] RESPIR ATORY (INHAL ATION) ACTIVE 05/12/2025 [id number] LILY PEREZ 2023 3 [facility] MULTIVITAMI NS W/MINERALS CAP/TAB MULTIVIT AMINS W/MINERA LS CAP/TAB Non-VA TAKE ONE TABLET BY MOUTH Apr 15, 2010 Non-VA Document ed by: BERHANE VALLECILLO Document ed at: [facility] ORAL ACTIVE BERHANE BUENROSTRO 2009 [facility] NORTRIPTYLI NE HCL 10MG CAP NORTRIPT [...] Aug 11, 2023 450 Nov 09, 2023 [id number] Aug 13, [address] [facility] ORAL DISCONT INUED 11/09/2023 [id number] ELIZABETH LEE 2022 450 [facility] NORTRIPTYLI NE HCL 25MG CAP NORTRIPT YLINE HCL 25MG CAP Disconti nued TAKE THREE CAPSULES BY MOUTH AT BEDTIME FOR DEPRESSI ON FOR DEPRESSI ON Nov 04, 2023 270 Feb 02, 2024 [id number] Nov 09, 2023 ELIZABETH LEESOMMERO L[place] [facility] ORAL DISCONT INUED (EDIT) 02/02/2024 [id number] ELIZABETH LEE 2023 270 [place] [facility] NORTRIPTYLI NE HCL 50MG CAP NORTRIPT YLINE HCL 50MG CAP Active TAKE TWO CAPSULES BY MOUTH AT BEDTIME FOR DEPRESSI ON FOR DEPRESSI ON Jan 27, 2024 180 Jan 27, 2025 [id number] Jan 28, 2024 ELIZABETH LEE KAYDENO L[facility] ORAL ACTIVE 01/27/2025 [id number] ELIZABETH LEE 2023 180 [facility] OLODATEROL 2.5MCG/TIOT ROPIUM 2.5MCG/ACTU AT INHL,ORAL,6 0D,4GM OLODATER OL 2.5MCG/T IOTROPIU M 2.5MCG/A CTUAT INHL,ORA L,60D,4G M Active INHALE 2 PUFFS BY INHALATI ON EVERY DAY TO PREVENT TROUBLE BREATHIN G FOR COPD (REPLACE S SPIRIVA/ TIOTROPI UM) May 11, 2024 3 May 12, 2025 [id number] B May 11, 2024 LILY [facility]EREZ [facility] RESPIR ATORY (INHAL ATION) ACTIVE 05/12/2025 [id number] LILY PEREZ 2023 3 [facility] OLODATEROL 2.5MCG/TIOT ROPIUM 2.5MCG/ACTU AT INHL,ORAL,6 0D,4GM OLODATER OL 2.5MCG/T IOTROPIU M 2.5MCG/A CTUAT INHL,ORA L,60D,4G M Disconti nued INHALE 2 PUFFS BY INHALATI ON EVERY DAY TO PREVENT TROUBLE BREATHIN G FOR COPD (REPLACE S SPIRIVA/ TIOTROPI UM) Feb 09, 2023 3 Feb 10, 2024 [id number] A Jan 12, 2024 KEVEN CARDONA [facility] RESPIR ATORY (INHAL ATION) DISCONT INUED 02/10/2024 [id number] KEVEN CARDONA 2022 3 [place] [facility] PANTOPRAZOL E NA 40MG TAB,EC PANTOPRA ZOLE NA 40MG TAB,EC Active TAKE ONE TABLET BY MOUTH TWICE A DAY NEEDED FOR ACID REFLUX Apr 06, 2024 180 Apr 07, 2025 [id number] Apr 07, 2024 CHE JAUREGUI [facility] ORAL ACTIVE 04/07/2025 [id number] SANDY JAUREGUI CO A 2023 180 [place] [facility] PANTOPRAZOL E NA 40MG TAB,EC PANTOPRA ZOLE NA 40MG TAB,EC TAKE ONE TABLET BY MOUTH TWICE A DAY NEEDED FOR ACID REFLUX Jan 30, 2023 180 Jan 31, 2024 [id number] C Oct 14, 2023 K[facility] CARDONA [facility] ORAL 01/31/2024 [id number] KEVEN CARDONA 2022 180 [facility] POLYETHYLEN E GLYCOL 3350 POWDER,ORAL POLYETHY ELDA GLYCOL 3350 POWDER,O RAL Non-VA TAKE BY MOUTH May 25, 2020 Non-VA Document ed by: KEVEN CARDONA Document ed at: [facility] ORAL ACTIVE ADELIAFELIX KEVENHONORIO BURNS 2019 [place] [facility] POLYETHYLEN E GLYCOL 3350 PWDR,ORAL POLYETHY ELDA GLYCOL 3350 PWDR,ORA L Active TAKE 17 GRAMS BY MOUTH EVERY DAY NEEDED FOR SEVERE CONSTIPA TION - DISSOLVE 1 CAPFUL (17 GRAMS) IN 8 OUNCES OF WATER OR JUICE TAKE IF NO GOOD BOWEL MOVEMENT IN 2 DAYS FOR CONSTIPA TION May 11, 2024 510 May 12, 2025 [id number] May 11, 2024 PEREZLILY CUEVAS L [facility] OR[facility] ACTIVE 05/12/2025 [id number] LILY PEREZ 2023 510 [place] [facility] POLYETHYLEN E GLYCOL 3350 PWDR,ORAL POLYETHY ELDA GLYCOL 3350 PWDR,ORA L Disconti nued TAKE 17 GRAMS BY MOUTH EVERY DAY NEEDED FOR SEVERE CONSTIPA TION SEVERE CONSTIPA TION Feb 11, 2024 510 Feb 11, 2025 [id number] A Apr 06, 2024 GIULIANO MARQUEZ [facility] ORAL DISCONT INUED (EDIT) 02/11/2025 [id number] ALMA XENIA Huber 2023 510 [facility] POLYETHYLEN E GLYCOL 3350 PWDR,ORAL POLYETHY ELDA GLYCOL 3350 PWDR,ORA L Disconti nued TAKE 17 GRAMS BY MOUTH EVERY DAY NEEDED FOR SEVERE CONSTIPA TION SEVERE CONSTIPA TION Feb 09, 2023 510 Feb 10, 2024 [id number] Jul 07, 2023 ADELIAKEVEN [place] [facility] ORAL DISCONT INUED 02/10/2024 [id number] PARADKEVEN [place] 2022 510 [facility] PSYLLIUM PWDR,ORAL PSYLLIUM PWDR,ORA L Active TAKE 1 TEASPOON FUL BY MOUTH EVERY DAY FOR REGULAR BOWEL MOVEMENT S FOR REGULAR BOWEL MOVEMENT S May 11, 2024 390 May 12, 2025 [id number] May 11, 2024 PEREZ,LILY L [facility] ORAL ACTIVE 05/12/2025 [id number] PEREZ,LILY L 2023 390 [facility] PSYLLIUM PWDR,ORAL PSYLLIUM PWDR,ORA L TAKE 1 TABLESPO ONFUL BY MOUTH EVERY DAY FOR REGULAR BOWEL MOVEMENT S FOR REGULAR BOWEL MOVEMENT S Feb 09, 2023 780 Feb 10, 2024 [id number] Mar 25, 2023 [place]AD[place]VEN [place] [facility] ORAL 02/10/2024 [id number] [place]AD[place]VEN [place] 2022 780 [facility] QUETIAPINE FUMARATE 25MG TAB QUETIAPI NE FUMARATE 25MG TAB Disconti nued TAKE ONE TABLET BY MOUTH TWICE A DAY FOR ANXIETY FOR ANXIETY Jul 23, 2023 180 Jul 23, 2024 [id number] Aug 06, 2023 ELIZABETH LEE [facility] ORAL DISCONT INUED 07/23/2024 [id number] ELIZABETH LEE 2022 180 [place] [facility] QUETIAPINE FUMARATE 25MG TAB QUETIAPI NE FUMARATE 25MG TAB Disconti nued TAKE ONE-HALF TABLET BY MOUTH TWO TIMES A DAY FOR 5 DAYS, THEN TAKE ONE TABLET TWO TIMES A DAY FOR ANXIETY FOR ANXIETY Jul 07, 2023 55 Aug 06, 2023 [id number] Jul 07, 2023 [facility] LEE [facility] ORAL DISCONT INUED 08/06/2023 [id number] ELIZABETH LEE 2022 55 [facility] SIMETHICONE 80MG TAB,CHEW SIMETHIC ONE 80MG TAB,CHEW Active CHEW ONE TABLET BY MOUTH THREE TIMES A DAY NEEDED THESE TABLETS MUST BE CHEWED FOR BLOATING /FLATULE NCE Jan 13, 2024 100 Jan 13, 2025 [id number] A Apr 06, 2024 BRENDANKEVEN BURNS XUANO [facility] ORAL ACTIVE 01/13/2025 [id number] KEVEN CARDONA 2023 100 [facility] SIMETHICONE 80MG TAB,CHEW SIMETHIC ONE 80MG TAB,CHEW Disconti nued CHEW ONE TABLET BY MOUTH THREE TIMES A DAY NEEDED THESE TABLETS MUST BE CHEWED FOR BLOATING /FLATULE NCE March 13, 2023 100 March 13, 2024 [id number] Oct 14, 2023 BRENDANKEVEN BURNS [facility] ORAL DISCONT INUED 03/13/2024 [id number] BRENDAN KEVENHONORIO BURNS 2022 100 [facility] SIMVASTATIN 40MG TAB SIMVASTA TIN 40MG TAB Active TAKE ONE TABLET BY MOUTH AT BEDTIME FOR CHOLESTE ROL FOR CHOLESTE ROL Apr 06, 2024 90 Apr 07, 2025 [id number] Apr 07, 2024 CHE JAUREGUI A [facility] HCS ORAL ACTIVE 04/07/2025 [id number] SANDY JAUREGUI 2023 90 [facility] SIMVASTATIN 40MG TAB SIMVASTA TIN 40MG TAB TAKE ONE TABLET BY MOUTH AT BEDTIME FOR CHOLESTE ROL FOR CHOLESTE ROL Feb 12, 2023 90 Feb 13, 2024 [id number] Jan 12, [address] [facility] ORAL 02/13/2024 [id number] KEVEN CARDONA 2022 90 [facility] SPIRONOLACT ONE 25MG TAB SPIRONOL ACTONE 25MG TAB Active TAKE ONE TABLET BY MOUTH EVERY DAY FOR BLOOD PRESSURE Jan 13, 2024 90 Jan 13, 2025 [id number] C Apr 06, [address] [facility] ORAL ACTIVE 01/13/2025 [id number] KEVEN CARDONA 2023 90 [facility] SPIRONOLACT ONE 25MG TAB SPIRONOL ACTONE 25MG TAB Disconti nued TAKE ONE TABLET BY MOUTH EVERY DAY FOR BLOOD PRESSURE Dec 16, 2022 90 Dec 17, 2023 [id number] B Oct 14, [address] [facility] ORAL DISCONT INUED 12/17/2023 [id number] KEVEN CARDONA 2022 90 [facility] VENLAFAXINE HCL 75MG 24HR CAP,SA VENLAFAX INE HCL 75MG 24HR CAP,SA Disconti nued TAKE THREE CAPSULES BY MOUTH EVERY MORNING FOR MOOD AND ANXIETY. Jul 16, 2022 270 Jul 17, 2023 [id number] March 13, [address] [facility] ORAL DISCONT INUED 07/17/2023 [id number] LORNE AGUIRRE 2021 270 [facility] Allergies, Adverse Reactions, Alerts Combined list of allergies from Department of Defense and Veterans Affairs facilities. It does not include entries that were removed or entered in error. Substance Category Reaction Severity Reaction type Status Date Reported Comments Source LISINOPRIL Propensity to adverse reactions to drug (finding) Cough active 9 [facility] Immunizations Combined list of available immunizations from the Department of Defense and Veterans Affairs facilities. Immunization Series Date Given Administered By Site Reaction Lot Number CVX Code Drug Nitro Worker Status Comments Source COVID-19 ([employer]), MRNA, LNP-S, PF, LENIN-SUCROSE, 30 MCG/0.3 ML (AGES 12+ YEARS) 2 2023 NYLA CONWAY LEFT DELTO ID [id number] 309 complet ed [facility] COVID-19 ([employer]), MRNA, LNP-S, PF, 50 MCG/0.5 ML (AGES 12+ YEARS) 2022 312 complet ed [facility] INFLUENZA, HIGH-DOSE, QUADRIVALENT 2022 HABHENRYELAKATHY ,ANDOM G LEFT DELTO ID [id number] 197 complet ed [facility] ZOSTER RECOMBINANT 2 2022 HABHENRYELAKATHY ,ANDOM G RIGHT DELTO ID [id number] 187 complet ed @@ ENTER DILUENT LOT# HERE [facility] ZOSTER RECOMBINANT 1 2022 JOSTIN BURTON A LEFT DELTO ID [id number] 187 complet ed @@ ENTER DILUENT LOT# HERE [facility] COVID-19 ([employer]), MRNA, LNP-S, BIVALENT, PF, 30 MCG/0.3 ML DOSE 2022 300 complet ed [facility] INFLUENZA, UNSPECIFIED FORMULATION 2022 88 complet ed [facility] INFLUENZA VACCINE, QUADRIVALENT, ADJUVANTED 2021 205 complet ed [facility] COVID-19 (P[employer]), MRNA, LNP-S, PF, 30 MCG/0.3 ML DOSE, LENIN-SUCROSE (AGES 12+ YEARS) 4 2021 217 complet ed PFR; [id number]; 2 [facility] INFLUENZA, HIGH-DOSE, QUADRIVALENT 2021 197 complet ed [facility] COVID-19 (PFIZER), MRNA, LNP-S, PF, 30 MCG/0.3 ML DOSE 3 2020 208 complet ed PFR; [id number]; 1 [facility] COVID-19 (PFIZER), MRNA, LNP-S, PF, 30 MCG/0.3 ML DOSE 2 2020 208 complet ed [facility] COVID-19 (P[employer]ZER), MRNA, LNP-S, PF, 30 MCG/0.3 ML DOSE 2020 208 complet ed [facility] INFLUENZA, INJECTABLE, QUADRIVALENT, PRESERVATIVE FREE 2019 150 complet ed [facility] INFLUENZA, HIGH DOSE SEASONAL 2018 135 complet ed [facility] INFLUENZA, HIGH DOSE SEASONAL 2017 135 complet ed [facility] INFLUENZA, SEASONAL, INJECTABLE 2017 141 complet ed [facility] INFLUENZA, HIGH DOSE SEASONAL 2016 135 complet ed Drug store [facility] INFLUENZA, HIGH DOSE SEASONAL 2016 135 complet ed [facility] INFLUENZA, SEASONAL, INJECTABLE, PRESERVATIVE FREE 2015 140 complet ed [facility] PNEUMOCOCCAL POLYSACCHARID E [id number] 2015 33 complet ed [facility] INFLUENZA, HIGH DOSE SEASONAL 2015 135 complet ed [facility] INFLUENZA, HIGH DOSE SEASONAL 2014 135 complet ed [facility] PNEUMOCOCCAL CONJUGATE PCV 13 2014 133 complet ed [facility] INFLUENZA, SEASONAL, INJECTABLE 2014 141 complet ed [facility] PNEUMOCOCCAL CONJUGATE PCV 13 2014 133 complet ed [facility] INFLUENZA, UNSPECIFIED FORMULATION 2013 88 complet ed [facility] TDAP 2013 115 complet ed [employer] hkline,34 EB5,12/02 [facility] ZOSTER LIVE 2013 121 complet ed [employer] co,[id number] 8, 015 [facility] INFLUENZA, UNSPECIFIED FORMULATION 2012 88 complet ed [facility] PNEUMOCOCCAL, UNSPECIFIED FORMULATION 2012 109 complet ed [employer] Lot# [facility] INFLUENZA, SEASONAL, INJECTABLE 2011 141 complet ed [facility] INFLUENZA, UNSPECIFIED FORMULATION 2010 88 complet ed [facility] INFLUENZA, UNSPECIFIED FORMULATION 2009 88 complet ed [facility] NOVEL INFLUENZA-H1N 1-09, ALL FORMULATIONS 2009 128 complet ed [employer] [facility] INFLUENZA, UNSPECIFIED FORMULATION 2008 88 complet ed [facility] INFLUENZA, SEASONAL, INJECTABLE 2007 141 complet ed [facility] INFLUENZA, UNSPECIFIED FORMULATION 2007 88 complet ed [facility] INFLUENZA, SEASONAL, INJECTABLE 2007 141 complet ed [facility] PNEUMOCOCCAL, UNSPECIFIED FORMULATION 2007 109 complet ed [facility] TD(ADULT) UNSPECIFIED FORMULATION 2006 139 complet ed [facility] INFLUENZA, SEASONAL, INJECTABLE 2005 141 complet ed [facility] INFLUENZA, SEASONAL, INJECTABLE 2004 141 complet ed [facility] INFLUENZA, SEASONAL, INJECTABLE 2002 141 complet ed [facility] TD (ADULT), 2 LF TETANUS TOXOID, PRESERVATIVE FREE, ADSORBED 2002 09 complet ed [facility] Results Combined list of recent chemistry, [...] May 11, 2024 09:33 AM Reporting Lab: [facility] [id number] Performing Lab: [facility] [id number] [facility] ALBUMIN/ CREATINI NE RATIO URINE MICROALBUM IN/CREATIN INE [MASS RATIO] IN URINE 52.7 mg/g{cre at} <29.9 - 29.9 05/11 H Specimen Type: URINE No comment entered. Ordering Provider: LILY PEREZ Report Released Date/Time: May 11, 2024 09:33 AM Reporting Lab: [facility] [id number] Performing Lab: [facility] [id number] [facility] ALBUMIN/ CREATINI NE RATIO URINE MICROALBUM IN [MASS/VOLU ME] IN URINE 20.5 mg/L <29.9 - 29.9 05/11 Specimen Type: URINE No comment entered. Ordering Provider: LILY PEREZ Report Released Date/Time: May 11, 2024 09:33 AM Reporting Lab: [facility] [id number] Performing Lab: [facility] [id number] [place] [facility] [facility] YLINE NORTRIPTYL INE [MASS/VOLU ME] IN SERUM OR PLASMA 50 ug/L 50 - 150 12/23 Specimen Type: SERUM Comment: This test was developed and its analytical performance characteris tics have been determined by [facility] [place], [place]. It has not been cleared or approved by the U.S. Food and Drug Administrat ion. This assay has been validated pursuant to the CLIA regulations and is used for clinical purposes. Test Performed by [facility], [facility], [address] [place] [address] Chance Godinez M.D., Ph.D., Director of Laboratorie s , CLIA [id number] Ordering Provider: LAYO LEE Report Released Date/Time: Dec 24, 2023 10:29 AM Reporting Lab: [facility] [phone] Performing Lab: [address] [facility] AST/SGOT ASPARTATE AMINOTRANS FERASE [ENZYMATIC ACTIVITY/V OLUME] IN SERUM OR PLASMA 18 U/L <34 - 34 12/23 Specimen Type: PLASMA No comment entered. Ordering Provider: KADE HERNANDEZ Report Released Date/Time: Sep 09, 2023 10:29 AM Reporting Lab: [facility] [address] Performing Lab: [facility] [address] [place] [facility] CREATINI NE(INCLU MARI EGFR) CREATININE [MASS/VOLU ME] IN SERUM OR PLASMA 1.0 mg/dL 0.7 - 1.2 12/23 Specimen Type: PLASMA No comment entered. Ordering Provider: KADE HERNANDEZ Report Released Date/Time: Sep 09, 2023 10:29 AM Reporting Lab: [facility] [address] Performing Lab: [facility] [address] [place] [facility] CREATINI NE(INCLU MARI EGFR) GLOMERULAR FILTRATION RATE/1.73 SQ M.PREDICTE D [VOLUME RATE/AREA] IN SERUM, PLASMA OR BLOOD BY CREATININE -BASED FORMULA (CKD-EPI 2020) 76 60 12/23 Specimen Type: PLASMA No comment entered. Ordering Provider: KADE HERNANDEZ Report Released Date/Time: Sep 09, 2023 10:29 AM Reporting Lab: [facility] [address] Performing Lab: [facility] [address] [place] [facility] ALT/SGPT ALANINE AMINOTRANS FERASE [ENZYMATIC ACTIVITY/V OLUME] IN SERUM OR PLASMA 12 U/L <55 - 55 12/23 Specimen Type: PLASMA No comment entered. Ordering Provider: KADE HERNANDEZ Report Released Date/Time: Sep 09, 2023 10:29 AM Reporting Lab: [facility] [address] Performing Lab: [facility] [address] [place] [facility] CBC LEUKOCYTES [#/VOLUME] IN BLOOD BY AUTOMATED COUNT 10.66 10*3/uL 4.0 - 11.0 12/23 Specimen Type: BLOOD No comment entered. Ordering Provider: KADE HERNANDEZ Report Released Date/Time: Sep 09, 2023 10:29 AM Reporting Lab: [facility] [address] Performing Lab: [facility] [address] [place] [facility] CBC ERYTHROCYT ES [#/VOLUME] IN BLOOD BY AUTOMATED COUNT 4.32 10*6/uL 4.6 - 6.2 12/23 L Specimen Type: BLOOD No comment entered. Ordering Provider: KADE HERNANDEZ Report Released Date/Time: Sep 09, 2023 10:29 AM Reporting Lab: [facility] [address] Performing Lab: [facility] [address] [place] [facility] CBC HEMOGLOBIN [MASS/VOLU ME] IN BLOOD 13.2 g/dL 13.5 - 17.9 12/23 L Specimen Type: BLOOD No comment entered. Ordering Provider: KADE HERNANDEZ Report Released Date/Time: Sep 09, 2023 10:29 AM Reporting Lab: [facility] [address] Performing Lab: [facility] [address] [place] [facility] CBC HEMATOCRIT [VOLUME FRACTION] OF BLOOD BY AUTOMATED COUNT 40.2 41 - 54 12/23 L Specimen Type: BLOOD No comment entered. Ordering Provider: KADE HERNANDEZ Report Released Date/Time: Sep 09, 2023 10:29 AM Reporting Lab: [facility] [address] Performing Lab: [place] [phone] [place] [facility] CBC MCV [ENTITIC VOLUME] BY AUTOMATED COUNT 93.1 fL 80 - 100 12/23 Specimen Type: BLOOD No comment entered. Ordering Provider: KADE HERNANDEZ Report Released Date/Time: Sep 09, 2023 10:29 AM Reporting Lab: [facility] [phone] Performing Lab: [facility] [address] [place] [facility] CBC MCH [ENTITIC MASS] BY AUTOMATED COUNT 30.6 pg 27 - 33 12/23 Specimen Type: BLOOD No comment entered. Ordering Provider: KADE HERNANDEZ Report Released Date/Time: Sep 09, 2023 10:29 AM Reporting Lab: [facility] [address] Performing Lab: [facility] [address] [place] [facility] CBC MCHC [MASS/VOLU ME] BY AUTOMATED COUNT 32.8 g/dL 32.0 - 37.5 12/23 Specimen Type: BLOOD No comment entered. Ordering Provider: KADE HERNANDEZ Report Released Date/Time: Sep 09, 2023 10:29 AM Reporting Lab: [facility] [address] Performing Lab: [facility] [address] [place] [facility] CBC PLATELETS [#/VOLUME] IN BLOOD BY AUTOMATED COUNT 347 10*3/uL 150 - 400 12/23 Specimen Type: BLOOD No comment entered. Ordering Provider: KADE HERNANDEZ Report Released Date/Time: Sep 09, 2023 10:29 AM Reporting Lab: [facility] [address] Performing Lab: [facility] [address] [facility] CBC PLATELET MEAN VOLUME [ENTITIC VOLUME] IN BLOOD BY AUTOMATED COUNT 8.9 fL 7.4 - 10.4 12/23 Specimen Type: BLOOD No comment entered. Ordering Provider: KADE HERNANDEZ Report Released Date/Time: Sep 09, 2023 10:29 AM Reporting Lab: [facility] [address] Performing Lab: [place] [address] [facility] CBC ERYTHROCYT E DISTRIBUTI ON WIDTH [RATIO] BY AUTOMATED COUNT 13.4 11.5 - 14.5 12/23 Specimen Type: BLOOD No comment entered. Ordering Provider: KADE HERNANDEZ Report Released Date/Time: Sep 09, 2023 10:29 AM Reporting Lab: [facility] [address] Performing Lab: [facility] [address] [facility] NORTRIPT YLINE NORTRIPTYL INE [MASS/VOLU ME] IN SERUM OR PLASMA 29 ug/L 50 - 150 09/07 L Specimen Type: SERUM Comment: This test was developed and its analytical performance characteris tics have been determined by [facility] [place], [place]. It has not been cleared or approved by the U.S. Food and Drug Administrat ion. This assay has been validated pursuant to the CLIA regulations and is used for clinical purposes. Test Performed by [facility], [facility], [address] [place] [address] Chance Godinez M.D., Ph.D., Director of Laboratorie s , CLIA [id number] Ordering Provider: LAYO LEE Report Released Date/Time: Sep 07, 2023 10:18 AM Reporting Lab: [facility] [address] Performing Lab: [place] [id number] [facility] [place] [facility] HEMOGLOB IN A1C HEMOGLOBIN A1C/HEMOGL OBIN.TOTAL IN [...] Dec 17, 2022 12:00 AM Reporting Lab: [facility] [address] Performing Lab: [facility] [address] [place] [facility] LIPID PANEL,NO N-FASTIN G CHOLESTERO L [MASS/VOLU ME] IN SERUM OR PLASMA 167 mg/dL <199 - 199 02/09 Specimen Type: PLASMA No comment entered. Ordering Provider: HENRIETTA CARDONA Report Released Date/Time: Dec 17, 2022 12:00 AM Reporting Lab: [facility] [address] Performing Lab: [facility] [address] [place] [facility] LIPID PANEL,NO N-FASTIN G CHOLESTERO L IN HDL [MASS/VOLU ME] IN SERUM OR PLASMA 42 mg/dL 40 02/09 Specimen Type: PLASMA No comment entered. Ordering Provider: HENRIETTA CARDONA Report Released Date/Time: Dec 17, 2022 12:00 AM Reporting Lab: [facility] [address] Performing Lab: [facility] [address] [place] [facility] LIPID PANEL,NO N-FASTIN G CHOLESTERO L IN LDL [MASS/VOLU ME] IN SERUM OR PLASMA BY CALCULATIO N 103 mg/dL <99 - 99 02/09 H Specimen Type: PLASMA No comment entered. Ordering Provider: HENRIETTA CARDONA Report Released Date/Time: Dec 17, 2022 12:00 AM Reporting Lab: [facility] [address] Performing Lab: [facility] [address] [place] [facility] LIPID PANEL,NO N-FASTIN G CHOLESTERO L IN VLDL [MASS/VOLU ME] IN SERUM OR PLASMA BY CALCULATIO N 22 mg/dL <29 - 29 02/09 Specimen Type: PLASMA No comment entered. Ordering Provider: HENRIETTA CARDONA Report Released Date/Time: Dec 17, 2022 12:00 AM Reporting Lab: [facility] [address] Performing Lab: [facility] [address] [place] [facility] LIPID PANEL,NO N-FASTIN G CHOLESTERO L NON HDL [MASS/VOLU ME] IN SERUM OR PLASMA 125 mg/dL <129 - 129 02/09 Specimen Type: PLASMA No comment entered. Ordering Provider: HENRIETTA CARDONA Report Released Date/Time: Dec 17, 2022 12:00 AM Reporting Lab: [facility] [address] Performing Lab: [facility] [address] [place] [facility] LIPID PANEL,NO N-FASTIN G TRIGLYCERI DE [MASS/VOLU ME] IN SERUM OR PLASMA 111 mg/dL <149 - 149 02/09 Specimen Type: PLASMA No comment entered. Ordering Provider: HENRIETTA CARDONA Report Released Date/Time: Dec 17, 2022 12:00 AM Reporting Lab: [facility] [address] Performing Lab: [facility] [address] [place] [facility] EXTRA GOLD GEL TUBE EXTRA GOLD GEL TUBE RECEIVED 02/09 Specimen Type: SERUM No comment entered. Ordering Provider: HENRIETTA CARDONA Report Released Date/Time: Dec 17, 2022 12:00 AM Reporting Lab: [facility] [address] Performing Lab: [facility] [address] [place] [facility] Vital Signs Combined list of inpatient and [...] DC Date Status Disposition Source [facility] [facility] Outpatient Encounter [id number] 12/11 [facility] OFFICE O/P EST MOD 30-39 MIN [id number] Diagnos is: ICD-10- CM F33.1 Major depress joni disorde r, recurre nt, moderat e
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
CZIPRI,SHE SANTA L 01/19 [facility] OFFICE O/P EST MOD 30-39 MIN [id number] Diagnos is: ICD-10- CM F33.1 Major depress joni disorde r, recurre nt, moderat e
AGUIRRE,D DANIEL SCHAEFFER 01/26 [facility] IMMUNIZATI ON ADMIN [id number] Diagnos is: ICD-10- CM Z00.01 Encount er for general adult medical exam w abnorma l finding s
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
CZIPRDYLAN Hutchinson SANTA L 02/09 [place] [facility] Outpatient Encounter [id number] 03/03 [place] [facility] Outpatient Encounter [id number] 03/04 [place] [facility] Outpatient Encounter [id number] TORSTEN NATARAJAN 03/10 [facility] OFFICE O/P EST MOD 30-39 MIN [id number] Diagnos is: ICD-10- CM F33.9 Major depress joni disorde r, recurre nt, unspeci fied
Gris AGUIRRE 03/25 [facility] Outpatient Encounter [id number] 04/15 [facility] OFFICE O/P EST MOD 30-39 MIN [id number] Diagnos is: ICD-10- CM F33.1 Major depress joni disorde r, recurre nt, moderat e
Gris AGUIRRE 05/05 [place] [facility] OFF/OP CNSLTJ NEW/EST MOD 40 [id number] Diagnos is: ICD-10- CM R26.89 Other abnorma lities of gait and mobilit y
DENICE RAY ALAFALLA O 05/12 [place] [facility] Outpatient Encounter [id number] 05/13 [place] [facility] OFF[facility] O/P EST MOD 30-39 MIN [id number] Diagnos is: ICD-10- CM F41.9 Anxiety disorde r, unspeci fied
Jai LEE E 07/07 [facility] IMMUNIZATI ON ADMIN EACH ADD [id number] Diagnos is: ICD-10- CM Z23 Encount er for immuniz ation<b r/> HABTESELAS SIE,ANDOM G 07/07 [facility] Outpatient Encounter [id number] 07/07 [facility] Outpatient Encounter [id number] Diagnos is: ICD-10- CM F41.9 Anxiety disorde r, unspeci fied
Jai LEE E 07/23 [facility] Outpatient Encounter [id number] Diagnos is: ICD-10- CM F41.9 Anxiety disorde r, unspeci fied
Jai LEE 08/11 [facility] Outpatient Encounter [id number] Diagnos is: ICD-10- CM C64.2 Maligna nt neoplas m of left kidney, except renal pelvis< br/> DAHM,PHILI PP 08/11 [facility] OFFICE O/P NEW LOW 30-44 MIN [id number] Diagnos is: ICD-10- CM G57.83 Other specifi ed mononeu ropathi es of bilater al lower limbs<b r/> Randi ZHAO 08/18 [facility] Outpatient Encounter [id number] 09/07 [facility] OFFICE O/P EST MOD 30-39 MIN [id number] Diagnos is: ICD-10- CM F41.9 Anxiety disorde r, unspeci fied
Jai LEE 09/07 [facility] [place] [facility] Outpatient Encounter [id number] GWENDOLYN DOOLEY M 09/09 [facility] Outpatient Encounter [id number] 09/09 [facility] Outpatient Encounter [id number] 09/16 [facility] Outpatient Encounter [id number] 10/27 [facility] Outpatient Encounter [id number] Diagnos is: ICD-10- CM F33.1 Major depress joni disorde r, recurre nt, moderat e
Jai LEE E 11/04 [facility] Outpatient Encounter [id number] 11/10 [facility] Outpatient Encounter [id number] 12/22 [facility] OFFICE O/P EST MOD 30 MIN [id number] Diagnos is: ICD-10- CM F34.1 Dysthym ic disorde r
Jai LEE 12/23 [facility] Outpatient Encounter [id number] Melani LEE 01/05 [facility] OFFICE O/P EST MOD 30 MIN [id number] Diagnos is: ICD-10- CM F33.1 Major depress joni disorde r, recurre nt, moderat e
Jai LEE 01/26 [facility] Outpatient Encounter [id number] 03/02 [facility] QNHP OL DIG ASSMT&MGMT 5-10 [id number] Diagnos is: ICD-10- CM Z79.01 snf (curren t) use of anticoa gulants
JANENE HERNANDEZ M 03/17 [facility] OFFICE O/P EST MOD 30 MIN [id number] Diagnos is: ICD-10- CM F33.1 Major depress joni disorde r, recurre nt, moderat e
SHIROMAMARIE ULO R 05/03 [facility] ADMN SARSCOV2 VACC 1 DOSE [id number] Diagnos is: ICD-10- CM Z23 Encount er for immuniz ation<b r/> SATHYA CONWAY 05/03 [facility] Outpatient Encounter [id number] 05/11 [facility] OFFICE O/P EST MOD 30 MIN [id number] Diagnos is: ICD-10- CM K59.00 Constip ation, unspeci fied
LILY PEREZ 05/11 [facility] Outpatient Encounter [id number] Melani LEE 05/23 [facility] Social History Combined list of available smoking, tobacco, and other social history from Department of Defense and [facility] Affairs facilities. 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 9 [facility] History of tobacco use IA-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 USE 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 9 [facility] History of tobacco use INPT TOBACCO COUNSELING 03/05/2018 [facility] History of tobacco use INPT TOBACCO USE - PT REFUSED 01/06/2018 [facility] History of tobacco use CURRENT TOBACCO USER 01/01/2018 [facility] History of tobacco use CURRENT TOBACCO USER 04/06/2017 [facility] History of tobacco use CURRENT TOBACCO USER 02/18/2016 [facility] History of tobacco use CURRENT TOBACCO USER 08/23/2014 [facility] History of tobacco use CURRENT TOBACCO USER 07/27/2013 [facility] History of tobacco use CURRENT TOBACCO USER 06/08/2012 [facility] History of tobacco use CURRENT TOBACCO USER 04/18/2011 [facility] History of tobacco use CURRENT TOBACCO USER 04/15/2010 [facility] History of tobacco use CURRENT TOBACCO USER 05/17/2009 [facility] Plan of Care List of future care activities from [facility] Affairs facilities. Additional future care activities may be listed in the Assessment and Plan section. Date/Time Care Activity Care Activity Detail Facili ty 05/23/2024 AMBULATORY - NONE AMBULATORY - NONE [facility] 07/05/2024 AMBULATORY - PSYCHIATRY AMBULATORY - PSYC HIATRY [facility]
--- OUTSIDE RECORDS SUMMARY | 2024-05-23 16:17 | XMS_ITS | Encounter Summary ---
Author Name [facility] Address [address] [place] [address] Care Team Providers Care Collection Systems Modeler Name Role Phone KEVEN CARDONA Primary Care [...] MEDIC ARE SUPPL EMENT Oct 19, 2016 [id number] [phone] SEJAL WILSON PATIENT [place] SUPPLEMEN CATHY MEDIC ARE SUPPL EMENT Oct 19, 2016 [id number] [phone] SEJAL WILSON PATIENT MEDICARE (WNR) MEDICARE (M) PART B Jun 19, 2009 PART B [id number] [phone] SEJAL WILSON PATIENT MEDICARE (WNR) MEDICARE (M) PART B Jun 19, 2009 PART B [id number] [phone] SEJAL WILSON PATIENT MEDICARE (WNR) MEDICARE (M) PART A February 17, 2008 PART A [id number] SEJAL WILSON PATIENT MEDICARE (WNR) MEDICARE (M) PART A February 17, 2008 PART A [id number] [phone] SEJAL WILSON PATIENT Selected Encounter This section includes the information on record at [place] for the Encounter. Date/Time Encounter Type Encounter Description Reason Provider Source May 23, 2024 10:04 AM Outpatient Encounter ADMIN PAT ACTIVTIES (MASNONCT) JESUSCLAUDIO Huber IHRandi Encounter Template Text not used by [place] Plan of Treatment: Future Appointments (+ 6 months) and Future Tests (+/- 45 days) The Plan of Treatment section includes future care activities for the patient from all [place] treatmentfacilities. This section includes future appointments and future orders which are active, pending or scheduled. Future Appointments This section includes appointments that were scheduled to occur 6 months from the date of the Encounter, up to a maximum of 20 appointments. The data comes from all [place] treatment facilities. Appointment Date/Time Appointment Type Appointme nt Facility Name Jul 05, 2024 10:00 AM [facility] Lab Results: +/- 30 days of the encounter This section includes the Chemistry and Hematology Lab Results on record with [place] for the patient. Radiology Reports and Pathology Reports are provided separately, in subsequent sections. Lab Results This section contains the Chemistry/Hematology Results that were resulted 30 days before or 30 daysafter the date of the Encounter. Date/Time Source Result Type Result - Unit Interpretation Reference Range Comment May 11, 2024 09:[address] [facility] ALBUMIN/CREATININE RATIO URINE Specimen Type: URINE No comment entered. Ordering Provider: LILY PEREZ Report Released Date/Time: May 11, 2024 09:33 AM Reporting Lab: [facility] [id number] Performing Lab: [facility] [id number] CREATININ E,UR RANDOM 38.9 mg/dL L 58.0-161.0 ALB/CREAT RATIO,UR 52.7 mg/g{creat} H <29.9 ALBUMIN,U R 20.5 mg/L <29.9 Social History: Smoking Status (Most current) and Tobacco Use (All prior to encounter date) This section includes the most current, and the historical, smoking and tobacco- related health factors from the [place] facility where the Encounter took place. Current Smoking Status This section includes the most current smoking, or tobacco-related health factor, from the [place] facility where the Encounter took place. Date/Time Current Smoking Status Comment Jaqueline brink May 11, 2024 09:30 AM VA-TOBACCO DO[place] [address] [facility] Tobacco Use History This section includes a history of the smoking, or tobacco-related health factors, that were collected on or before the date of the Encounter. The data comes from the [place] facility where the Encounter took place. Date/Time Smoking Status/Tobacco Use Comment F acility May 11, 2024 09:30 AM VA-TOBACCO USE [address] [facility] May 11, 2024 09:30 AM VA-TOBACCO USE ADVICE [facility] May 11, 2024 09:30 AM VA-TOBACCO USE ASSEMBLER [facility] NO [facility] May 11, 2024 09:30 AM VA-TOBACCO USE MED NO [facility] May 11, 2024 09:30 AM VA-TOBACCO USER SOME DAYS [facility] Feb 09, 2023 09:30 AM VA-TOBACCO DOES[place] [address] [facility] Feb 09, 2023 09:30 AM VA-TOBACCO USE [address] [facility] Feb 09, 2023 09:30 AM VA-TOBACCO USE ADVICE [facility] Feb 09, 2023 09:30 AM VA-TOBACCO USE ASSEMBLER [facility] Feb 09, 2023 09:30 AM VA-TOBACCO USE MED NO [facility] Feb 09, 2023 09:30 AM VA-TOBACCO USER EVERY DAY [facility] Mar 20, 2022 09:00 AM VA-TOBACCO DOES[place] USE [place] [address] [facility] Mar 20, 2022 09:00 AM VA-TOBACCO USE [address] [facility] Mar 20, 2022 09:00 AM VA-TOBACCO USE ADVICE [facility] Mar 20, 2022 09:00 AM VA-TOBACCO USE ASSEMBLER [facility] Mar 20, 2022 09:00 AM VA-TOBACCO USE MED NO [facility] Mar 20, 2022 09:00 AM VA-TOBACCO USER EVERY DAY [facility] Mar 25, 2021 09:30 AM VA-TOBACCO USE [address] [facility] Mar 25, 2021 09:30 AM VA-TOBACCO USE ADVICE [facility] Mar 25, 2021 09:30 AM VA-TOBACCO USE ASSEMBLER [facility] Mar 25, 2021 09:30 AM VA-TOBACCO USE MED NO [facility] Mar 25, 2021 09:30 AM VA-TOBACCO USE [place] [address] [facility] Mar 25, 2021 09:30 AM VA-TOBACCO USER EVERY DAY [facility] Oct 03, 2019 09:42 AM VA-TOBACCO USE [address] [facility] Oct 03, 2019 09:42 AM VA-TOBACCO USE ADVICE [facility] Oct 03, 2019 09:42 AM VA-TOBACCO USE ASSEMBLER [facility] Oct 03, 2019 09:42 AM VA-TOBACCO USE MED NO [facility] Oct 03, 2019 09:42 AM VA-TOBACCO [place] [address] [facility] Oct 03, 2019 09:42 AM VA-TOBACCO USER EVERY DAY [facility] Dec 08, 2018 08:17 AM VA-TOBACCO DOES[place] [address] [facility] Dec 08, 2018 08:17 AM VA-TOBACCO USE [address] [facility] Dec 08, 2018 08:17 AM VA-TOBACCO USE ADVICE [facility] Dec 08, 2018 08:17 AM VA-TOBACCO USE ASSEMBLER [facility] Dec 08, 2018 08:17 AM VA-TOBACCO USE MED NO [facility] Dec 08, 2018 08:17 AM VA-TOBACCO USER SOME DAYS [facility] March 05, 2018 08:43 AM INPT TOBACCO COUNSELING [facility] March 05, 2018 08:43 AM INPT TOBACCO USER M [facility] Jan 06, 2018 08:32 AM INPT TOBACCO USE - PT REFUSED [facility] Jan 01, 2018 09:05 AM CURRENT TOBACCO USER [facility] Apr 06, 2017 08:43 AM CURRENT TOBACCO USER [facility] February 18, 2016 10:59 AM CURRENT TOBACCO USER [facility] Aug 23, 2014 08:16 AM CURRENT TOBACCO USER [facility] Jul 27, 2013 10:17 AM CURRENT TOBACCO USER [facility] Jun 08, 2012 09:13 AM CURRENT TOBACCO USER [facility] Apr 18, 2011 10:58 AM CURRENT TOBACCO USER [facility] Apr 15, 2010 08:19 AM CURRENT TOBACCO USER [facility] May 17, 2009 08:43 AM CURRENT TOBACCO USER [facility] Encounter Notes: All associated encounter notes This section contains the clinical notes associated to the Encounter. Date/Time Encounter Note(s) Provider Source May 20, 2024 10:05 AM NONVA NOTE: LOCAL TITLE: COMMUNITY CARE-MEENA SELF PRESENTING CARE COORD PLAN STANDARD TITLE: NONVA NOTE DATE OF NOTE: MAY 20, 2024@10:05 ENTRY DATE: MAY 23, 2024@10:05:22 AUTHOR: ROCCO,REY M EXP COSIGNER: URGENCY: STATUS: COMPLETED COMMUNITY CARE-MEENA SELF PRESENTING CARE COORD PLAN NOTE Has ADDENDA Emergency Notification Intake Date Presenting to the Facility: May Method of Contact: Notified from ECR worklist Notification ID: [id number] [facility] Referral #: [facility] Name: Hospital: [facility] Address: City: [place] State: [place] Zip Code: Phone : [facility] Facility Point of Contact: Name: KHUSHBU Espinal Chief complaint: ncreased shortness of breath on exertion Primary Diagnosis: Disposition Discharged Date of discharge: May Discharge to home /shantel/ REY VALIENTE Security Team Lead(AOD) Signed: 05/23/2024 10:07 Receipt Acknowledged By: 05/23/2024 14:51 /cl Butler KILN DOOR REPAIRER panel gluer Sweeping Compound Blender 05/23/2024 ADDENDUM STATUS: COMPLETED Notification acknowledged by RN. Medical and clinical information not reviewed. /cl Butler KILN DOOR REPAIRER panel gluer Sweeping Compound Blender Signed: 05/23/2024 14:[address] [facility]
--- OUTSIDE RECORDS SUMMARY | 2024-05-23 16:17 | XMS_ITS | Clinical Summary ---
Author Organization [facility] Address [place], [place] [address] Care Team Providers Care Plate Finisher Name Role Phone Darius Temple MD Primary Care Provider [phone] Allergies Active Allergy Reactions Criticality Noted Date [...] atrial fibrillation 12/18/2017 Overview: Diagnosed 10/2017 at [facility] Hyperplastic colon polyp 11/05/2015 Overview: Colonoscopy 10/2015 [...] of complication, not stated as uncontrolled 03/12/2006 Encounters Date Type Department Care Team Description 05/20/2024 Orders Only [facility] Scanner 1 scan: (1-Ord) [facility], CT CHEST ABDOMEN PELV W CON, 05/20/2024 05/20/2024 Orders Only [facility] Scanner 1 scan: (1-Ord) [facility], XR ABD MIN 2 VIEW, 05/20/2024 from Last 3 Months Immunizations Name Administration Dates Next Due COVID-19 Vaccine Spikevax (M oderna 50mcg/0.5mL) 12YO+ [id number] Formula PF 09/16/2023 COVID-19 vaccine ([employer] 30mcg/0.3mL) 12YO+ BIVALENT PF, MDV 01/03/2023 COVID-19 vaccine ([employer] NT[employer] 30mcg/0.3mL) 12YO+ LENIN-SUCROSE PF, MDV 03/04/2022 COVID-19 vaccine ([employer] 30mcg/0.3mL) PF, MDV 07/16/2021,01/15/2021,12/25/2020 Influenza A (H1N1), [...] 06/06/2021 06/06/2020, 04/01/2017, 11/26/2016, Additional history exists Influenza for age 65+ 06/19/2024 07/07/2023 , 11/19/2022, 08/02/2022, Additional history exists Tetanus booster 08/23/2024 08/23/2014, 10/2006, 10/03/2003 Tdap Completed 08/23/2014 Pneumococcal series for age 65+ Completed 09/20/2016, 09/20/2015, 07/19/2015, Additional history exists Zoster (shingles) series for age 50+ Completed 07/07/2023, 02/09/2023, 08/23/2014 COVID-19 vaccine series Completed 05/03/20 24, 09/16/2023, 01/03/2023, Additional history exists Procedures Procedure Name Priority Date/Time Associated Diagnosis Comments SCAN-CT INTERPRETATION 12:00 AM CDT SCAN-RADIOLOGY REPORT 05/20/2024 12:00 AM CDT from Last 3 Months Results * SCAN-RADIOLOGY REPORT (05/20/2024 12:00 AM CDT) Anatomical Region Laterality Modality Other Scanner OTHER * SCAN-CT INTERPRETATION (05/20/2024 12:00 AM CDT) Anatomical Region Laterality Modality Other Scanner OTHER from Last 3 Months Care Teams Plate Finisher Relationship Specialty Start Date End Date Darius Temple [place] [address] PCP - General Family Practice 09/01/12
[2024-05-23 16:29] LABS: HCO3 VBG 27 mmol/L (21-28); PCO2 VBG 40 mmHG (40-50); PO2 VBG 36.1 mmHG (25-47); pH VBG 7.438 (7.32-7.43)
[2024-05-23 16:32] LABS: Basophils Percent Auto 0.2 % (0.0-3.0); Hemoglobin* 13.8 gm/dL (13.5-17.5); Immature Granulocytes Pct Auto 0.3 %; Lymphocytes Percent Auto 8.5 % (20-44); Mean Corpuscular HGB Conc 33 gm/dL (32-36); Mean Corpuscular Hemoglobin 30 pg (26-34); Mean Corpuscular Volume 92 fL (80-100); Monocytes Percent Auto 3.3 % (0.0-11.0); Neutrophils Percent Auto 87.7 % (42.0-72.0); Platelet Count* 334 K/uL (140-440); Red Blood Count 4.59 m/uL (4.30-5.90)
[2024-05-23 16:47] LABS: Slide Review Reflex No
[2024-05-23 17:21] LABS: Albumin* 4.6 g/dL (3.3-5.0); Chloride* 99 mmol/L (96-114); Sodium* 134 mmol/L (135-149)
[2024-05-23 17:22] LABS: Potassium* 4.2 mmol/L (3.6-5.1)
--- NOTE | 2024-05-23 17:22 | ED_ITS ---
HPI - General Adult General Chief complaint: Shortness of Breath/Dyspnea Stated complaint: short of breath, high bp, anxiety Time Seen by Provider: 05/23/24 15:56 Source: patient Mode of arrival: ambulatory Limitations: no limitations History of Present Illness HPI narrative: [age] male coming in today complaining of continued shortness of breath. Patient was seen 3 days ago and was diagnosed with COPD exacerbation. He was put on azithromycin and prednisone. He states that these medications are not working as he continues to have shortness of breath with minimal exertion. He denies chest pain. Shortness of breath does go away when he is sitting still. This is causing him significant anxiety and he returns to the ED for re- evaluation. He denies any fevers or chills. No increasing cough. Again no chest pain. He complains of continued abdominal distension which she has had for quite some time. He did have both a chest abdomen CT 3 days ago which did not show any significant abnormality causing his symptoms, he did have a left- sided renal mass which he states he will speak to his primary provider about, but has not yet. He states that his appetite is unchanged. He denies diarrhea or constipation. He denies any urinary symptoms. His sleep patterns have not changed. He does continue to smoke approximately half pack per day. Related Data Home Medications ?Medication ?Instructions ?Recorded ?Confirmed apixaban 5 mg tablet 5 mg PO BID 01/05/24 05/23/24 losartan 50 mg-hydrochlorothiazide 1 tab PO DAILY 01/05/24 05/23/24 12.5 mg tablet (Hyzaar) metoprolol tartrate 25 mg tablet 25 mg PO BID 01/05/24 05/23/24 mometasone-formoterol HFA 200 2 inh inhalation BID 01/05/24 05/23/24 mcg-5 mcg/actuation aerosol inhaler multivitamin (Daily Multi-Vitamin 1 tab PO DAILY 01/05/24 05/20/24 tablet) pantoprazole 40 mg tablet,delayed 40 mg PO BID PRN 01/05/24 05/23/24 release polyethylene glycol 3350 17 17 g PO DAILY PRN 01/05/24 05/20/24 gram/dose oral powder (ClearLax) simvastatin 40 mg tablet 40 mg PO HS 01/05/24 05/23/24 tiotropium 2.5 mcg-olodaterol 2.5 2 inh inhalation DAILY 01/05/24 05/20/24 mcg/actuation mist for inhalation (Stiolto Respimat) albuterol sulfate 90 mcg/actuation 2 inh inhalation QID PRN 05/20/24 05/23/24 aerosol inhaler (Ventolin HFA) modafinil 100 mg tablet 200 mg PO DAILY 05/20/24 05/20/24 nortriptyline 50 mg capsule 100 mg PO HS 05/20/24 05/20/24 psyllium (Hydrocil oral powder) 1 tsp PO DAILY 05/20/24 05/20/24 sennosides 8.6 mg-docusate sodium 1 tab-cap PO BID 05/20/24 05/20/24 50 mg tablet (Senna Plus) simethicone 80 mg chewable tablet 80 mg PO BID-TID PRN 05/20/24 05/23/24 (Gas Relief (simethicone)) spironolactone 25 mg tablet 25 mg PO DAILY 05/20/24 05/23/24 (Aldactone) azithromycin 250 mg tablet mg 05/23/24 prednisone 20 mg tablet mg 05/23/24 Allergies Allergy/AdvReac Type Severity Reaction Status Date / Time No Known Drug Allergies Allergy Verified 05/23/24 15:33 Review of Systems Status of ROS: Reports: 10 or more systems reviewed and unremarkable except as noted in History and below [facility] Medical History 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 - Other congenital malformations of aorta (ICD-10) Ascending aorta dilatation ?I77.810 - Thoracic aortic ectasia (ICD-10) Hyperplastic colon polyp ?K63.5 - Polyp of colon (ICD-10) Major depression ?F32.9 - Major depressive disorder, single episode, unspecified (ICD-10) Renal cancer ?C64.9 - Malignant neoplasm of unspecified kidney, except renal pelvis (ICD- 10) Type 2 diabetes mellitus ?E11.9 - Type 2 diabetes mellitus without complications (ICD-10) Tobacco use disorder ?F17.200 - Nicotine dependence, unspecified, uncomplicated (ICD-10) Hypertension ?I10 - Essential (primary) hypertension (ICD-10) Hyperlipidemia ?E78.5 - Hyperlipidemia, unspecified (ICD-10) GERD (gastroesophageal reflux disease) ?K21.9 - Gastro-esophageal reflux disease without esophagitis (ICD-10) COPD (chronic obstructive pulmonary disease) ?J44.9 - Chronic obstructive pulmonary disease, unspecified (ICD-10) Atrial fibrillation ?I48.91 - Unspecified atrial fibrillation (ICD-10) Anxiety ?F41.9 - Anxiety disorder, unspecified (ICD-10) Chronic anticoagulation ?Z79.01 - [facility]FP (current) use of anticoagulants (ICD-10) Surgical History History of revision of total shoulder arthroplasty ?Z96.619 - Presence of unspecified artificial shoulder joint (ICD-10) History of right shoulder replacement ?Z96.611 - Presence of right artificial shoulder joint (ICD-10) Social History Narrative: HABITS: Daily smoker for many years. Half a pack per day. History of alcohol abuse. SOCIAL HISTORY: Lives alone. . 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 Immigrated from [place] at age 13 What is your current living situation?: I presently have a place to live Problems where you live: no known problems Problems where you live details: 12 steps up to apartment In the past 12 months, utilities in danger of being shut off: no In past 12 months, lack of transportation kept you from medical appts, meetings, work, or getting things needed for daily living: no In the past 12 mos, have been you worried that your food would run out before you had money to buy more?: never true In the past 12 mos, the food you bought just didn't last and you didn't have money to buy more?: never true Smoking Status: Current every day smoker What tobacco products do you use: cigarettes Smoking packs per day: 0.75 Smoking cigarettes per day: 15.0 Do you use any of these nicotine containing products: None Nicotine containing products detail: 1/2 pack a day Second hand tobacco smoke exposure: Yes How often do you have a drink containing alcohol: never How often do you have six or more drinks on one occasion: Never AUDIT-C Alcohol total score: 0 Non-prescribed substance use: denies use Caffeine: No How often does anyone, including family, friends and others, physically hurt you : never How often does anyone, including family, friends and others, insult or talk down to you: never How often does anyone, including family, friends and others, threaten you with harm: never How often does anyone, including family, friends and others, scream or curse at you: never service: Yes Exam Narrative: Exam Narrative: Well-nourished well-developed patient in no acute distress. Alert and oriented x3. Answers questions appropriately. Mood and affect are appropriate. Thoughts are goal oriented and rational. No tangential or magical thinking noted. Patient speaks in full sentences without needing to catch his breath. He does exhibit some slightly pursed lip breathing. HEENT: Normocephalic atraumatic. Pupils are equally round reactive to light. Extraocular muscles are intact. Conjunctivae are moist without any icterus noted. Moist mucous membranes. Neck is soft. Cardiovascular: Heart is regular rate and rhythm . Lungs: Decreased breath sounds bilaterally however, there are no wheezes rhonchi or rales are appreciated. Patient takes deep breaths without any discomfort. Abdomen: Soft and nontender with normal bowel sounds. Abdomen is protuberant and distended. Extremities: Bilateral lower extremities are without edema. Skin: Well perfused. Const: Vital Signs, click to edit/add: Vital Signs - 24 hr 05/23/24 15:26 05/23/24 16:07 05/23/24 16:25 Temperature 97.7 F Pulse Rate 84 Pulse Rate [Pulse Oximeter] 102 H Respiratory Rate 28 H Blood Pressure Blood Pressure [Ri ght Upper Arm] 164/72 H Pulse Oximetry 95 98 97 Oxygen Delivery [facility] Room Air 05/23/24 16:36 05/23/24 16:45 05/23/24 17:00 Temperature Pulse Rate 100 89 90 Pulse Rate [Pulse Oximeter] Respiratory Rate Blood Pressure Blood Pressure [Ri ght Upper Arm] Pulse Oximetry 97 99 98 Oxygen Delivery [facility] 05/23/24 17:15 05/23/24 17:29 05/23/24 17:30 Temperature Pulse Rate 78 91 86 Pulse Rate [Pulse Oximeter] Respiratory Rate Blood Pressure 181/96 H Blood Pressure [Ri ght Upper Arm] Pulse Oximetry 98 98 97 Oxygen Delivery [facility] 05/23/24 17:32 Temperature Pulse Rate 84 Pulse Rate [Pulse Oximeter] Respiratory Rate Blood Pressure 175/92 H Blood Pressure [Ri ght Upper Arm] Pulse Oximetry 99 Oxygen Delivery Me thod Course Course ED Course: EKG, read by me, shows atrial fibrillation with a pulse of 94. At rest patient has a pulse of 70 and this is saturating 95-96% on room air. With ambulation is pulse does go up to approximately 100-106, and oxygen saturation is unchanged. CBC shows a white cell count 12.2-again he was just started on prednisone. Normal hemoglobin. Chemistry shows slightly slow sodium of 134. Point of care troponin is 0. VBG is unremarkable. BNP is stable. Normal LFTs. Discussed with patient that he needs to continue his steroid and azithromycin. He is to follow up with primary care provider this week to discuss doing a stress test and to discuss chronic management of his COPD. Vital Signs Vital signs: Initial Vital Signs Temperature 97.7 F 05/23/24 15:26 Temperature Source Temporal Artery Scan 05/23/24 15:26 Pulse Rate 102 H 05/23/24 15:26 Respiratory Rate 28 H 05/23/24 15:26 Blood Pressure 164/72 H 05/23/24 15:26 Blood Pressure Mean 102 05/23/24 15:26 Blood Pressure Position Sitting 05/23/24 15:26 Pulse Oximetry 95 05/23/24 15:26 Oxygen Delivery Method Room Air 05/23/24 15:26 Vital Signs Temperature 97.7 F 05/23/24 15:26 Pulse Rate 102 H 05/23/24 15:26 Respiratory Rate 28 H 05/23/24 15:26 Blood Pressure 164/72 H 05/23/24 15:26 Pulse Oximetry 95 05/23/24 15:26 Oxygen Delivery Method Room Air 05/23/24 15:26 Temperature 97.7 F 05/23/24 15:26 Pulse Rate 84 05/23/24 17:32 Respiratory Rate 28 H 05/23/24 15:26 Blood Pressure 175/92 H 05/23/24 17:32 Pulse Oximetry 99 05/23/24 17:32 Oxygen Delivery Method Room Air 05/23/24 15:26 Medical Decision Making MDM Narrative Medical decision making narrative: 79-year-old male with COPD, increasing shortness of breath. Patient will follow-up with primary care Medical Records Medical records reviewed: Yes I reviewed the patient's medical records Lab Data Lab results reviewed: Yes I reviewed the patient's lab results Labs: Lab Results 05/23/24 05/23/24 Range/Units 16:08 16:20 WBC 12.20 H (4.50-11.00) K/uL RBC 4.59 (4.30-5.90) m/uL Hgb 13.8 (13.5-17.5) gm/dL Hct 42.0 (37.0-53.0) % MCV 92 (80-100) fL MCH 30 (26-34) pg MCHC 33 (32-36) gm/dL RDW Coeff of Micah 14.0 (11.5-15.5) % Plt Count 334 (140-440) K/uL Neut % (Auto) 87.7 H (42.0-72.0) % Lymph % (Auto) 8.5 L (20-44) % Lander % (Auto) 3.3 (0.0-11.0) % Eos % (Auto) 0.0 (0.0-7.0) % Baso % (Auto) 0.2 (0.0-3.0) % Neut # (Auto) 10.70 H (1.7-7.0) K/uL Lymph # (Auto) 1.00 (0.90-2.90) K/uL Lander # (Auto) 0.40 (0.00-0.90) K/UL Eos # (Auto) 0.00 (0.00-0.50) K/uL Baso # (Auto) 0.00 (0.00-0.30) K/uL Abs Immat Gran (auto) 0.00 (0.00-0.30) K/uL Imm/Tot Granulo (auto) 0.3 % VBG pH 7.438 H (7.32-7.43) VBG pCO2 40 (40-50) mmHG VBG pO2 36.1 (25-47) mmHG VBG HCO3 27 (21-28) mmol/L Sodium 134 L (135-149) mmol/L Potassium 4.2 (3.6-5.1) mmol/L Chloride 99 (96-114) mmol/L Carbon Dioxide 25 (20-32) mmol/L Anion Gap 10 (7-15) mEq/L BUN 22 (7-30) mg/dL Creatinine 0.9 (0.5-1.5) mg/dL Estimated Creat Clear 65.47 Estimated GFR 86 ml/min Glucose 142 H (60-115) mg/dL Lactate 2.0 H (0.5-1.9) mmol/L Calcium 9.0 (8.4-10.6) mg/dL Magnesium 2.0 (1.5-2.6) mg/dL Total Bilirubin 0.6 (0.1-1.5) mg/dL Direct Bilirubin 0.3 (0.0-0.5) mg/dL AST 30 (12-35) U/L ALT 22 (4-50) U/L Alkaline Phosphatase 61 (40-150) U/L Troponin I < 0.01 L (0.01-0.04) ng/mL NT-Pro-B Natriuret Pep 870 pg/mL Total Protein 7.7 (6.0-8.3) g/dL Albumin 4.6 (3.3-5.0) g/dL Lipase 38 (23-300) U/L POC Troponin I 0.00 L (0.01-0.04) ng/ml ECG Data Attestation: I personally reviewed and interpreted this ECG as follows: Discharge Plan Discharge Clinical Impression: Increasing shortness of breath, Kidney mass Patient Disposition: Home, Self-Care Condition: Stable Additional Instructions: You should follow-up with your primary care provider this week and discuss the followin. Mass on kidney 2. Increasing shortness of breath- recommend you have a stress test scheduled if you have not had 1 recently. Also recommend changing your chronic COPD medication per recommendation of your primary care provider. Return to the ER if you develop any chest pain or shortness of breath that does not resolve with rest. Prescriptions: No Action spironolactone [Aldactone] 25 mg tablet 25 mg PO DAILY simethicone [Gas Relief (simethicone)] 80 mg tablet,chewable 80 mg PO BID-TID PRN modafinil 100 mg tablet 200 mg PO DAILY albuterol sulfate [Ventolin HFA] 90 mcg/actuation HFA aerosol inhaler 2 inh inhalation QID PRN sennosides-docusate sodium [Senna Plus] 8.6-50 mg tablet 1 tab-cap PO BID nortriptyline 50 mg capsule 100 mg PO HS Hydrocil Powder 1 tsp PO DAILY Rx Instructions: mix into at least 4 oz water or juice before administering apixaban 5 mg tablet 5 mg PO BID losartan-hydrochlorothiazide [Hyzaar] 50-12.5 mg tablet 1 tab PO DAILY metoprolol tartrate 25 mg tablet 25 mg PO BID mometasone-formoterol 200-5 mcg/actuation HFA aerosol inhaler 2 inh inhalation BID multivitamin [Daily Multi-Vitamin] Tablet 1 tab PO DAILY Stiolto Respimat 2.5-2.5 mcg/actuation mist 2 inh inhalation DAILY pantoprazole 40 mg tablet,delayed release (DR/EC) 40 mg PO BID PRN polyethylene glycol 3350 [ClearLax] 17 gram/dose powder 17 g PO DAILY PRN simvastatin 40 mg tablet 40 mg PO HS azithromycin 250 mg tablet Patient Comments: [NO ORIGINAL SIG] prednisone 20 mg tablet Patient Comments: [NO ORIGINAL SIG] Follow Up/Referrals: Darius Temple MD [Primary Care Provider] - Stand Alone Forms: [employer] Info Instructions
[2024-05-23 17:23] LABS: Creatinine* 0.9 mg/dL (0.5-1.5); Est. Creatinine Clearance* 65.47; Estimated Glomerular Filt Rate 86 ml/min
[2024-05-23 17:24] LABS: Alkaline Phosphatase* 61 U/L (40-150); Anion Gap 10 mEq/L (7-15); Aspartate Amino Transferase* 30 U/L (12-35); Bilirubin Direct* 0.3 mg/dL (0.0-0.5); Bilirubin Total* 0.6 mg/dL (0.1-1.5); Blood Urea Nitrogen* 22 mg/dL (7-30); Carbon Dioxide* 25 mmol/L (20-32); Glucose* 142 mg/dL (60-115); Total Protein* 7.7 g/dL (6.0-8.3)
[2024-05-23 17:25] LABS: Alanine Aminotransferase* 22 U/L (4-50); Lipase* 38 U/L (23-300)
[2024-05-23 17:41] LABS: NT Pro B Type NatriureticPept* 870 pg/mL; Troponin I* < 0.01 ng/mL (0.01-0.04)
== END 2024-05-23 18:24 | disposition home or self-care (01) ==
PROVIDERS: Emergency Provider Family Medicine; PCP Family Medicine
DX: R06.02 Shortness of breath (principal); N28.89 Other specified disorders of kidney and ureter
CPT/HCPCS: 36415; 80048; 80076; 82803; 83605; 83690; 83735; 83880; 84484; 85025; 93005; 94761; 99284